=== PATIENT | male | born 1950 | race Asian ===

== ENCOUNTER 2018-01-30 22:43 | Inpatient (IN) | payer MEDICARE, MEDICAID ==
[2018-01-30 23:26] LABS: % BASOPHILS 0.4 % (0.0-2.0); % EOSINOPHILS 3.6 % (0.0-5.0); % LYMPHOCYTES 26.7 % (20.0-50.0); % MONOCYTES 8.3 % (2.0-10.0); EOSINOPHILE ABSOLUTE 0.3 Th/cmm (0.1-0.4); HEMATOCRIT 37.6 % (41.0-60); HEMOGLOBIN 12.9 gm/dL (12-16); LYMPHOCYTE ABSOLUTE 2.3 Th/cmm (1.5-3.0); MEAN CELL VOLUME 90.9 fl (80-99); MEAN CORPUSCULAR HEMOGLOBIN 31.1 pg (27.0-31.0); MEAN CORPUSCULAR HGB CONC 34.2 pg (28.0-36.0); MEAN PLATELET VOLUME 8.1 fl; MONOCYTE ABSOLUTE 0.7 Th/cmm (0.3-1.0); NEUTROPHILE ABSOLUTE 5.4 Th/cmm (1.8-8.0); PLATELET COUNT 201 Th/cmm (150-400); RED BLOOD COUNT 4.14 Mil/cmm (3.80-5.80); WHITE BLOOD COUNT 8.7 Th/cmm (4.8-10.8)
--- NOTE | 2018-01-30 23:32 | ED Physician Chart ---
ED Chief Complaint/HPI - Patient Information Date Seen:: 01/30/18 Time Seen:: 23:32 Chief Complaint:: Agitation and confusion History of Present Illness:: 67 yo male with history of psychosis and dementia, was brought from SNF to ER for evaluation of increased agitation and confusion. Allergies:: Allergies Allergy/AdvReac Type Severity Reaction Status Date / Time No Known Allergies Allergy Verified 01/30/18 23:04 Vitals:: Vital Signs - 8 hr 01/30/18 23:00 Temp 97.2 F HR 75 RR 20 BP 141/83 O2 Sat % 96 ED Review of Systems - Review of Systems General/Constitutional: No fever, No chills Skin: No bruising Head: No headache Eyes: No pain ENT: No nasal drainage Neck: No neck pain Cardio Vascular: No chest pain Pulmonary: No SOB GI: No nausea, No vomiting Musculoskeletal: No bone or joint pain Psychiatric: Prior psych history Neurological: No focal symptoms ED Past Medical History - Past Medical History Past Medical History: HTN, DM, Asthma/COPD, CVA/TIA (TIA), Dyslipidemia, Dementia, Other (high fall risk) Social History: Non Smoker, No Alcohol, No Drug Use Psychiatricy History: Other (Psychosis) Family Medical History - Family Member Mother History Unknown: Yes ED Physical Exam - Physical Examination General/Constitutional: Awake Head: Atraumatic Eyes: PERRL Skin: No ecchymosis ENMT: Nasal exam nl Neck: No nuchal rigidity Respiratory: Clear to Auscultation Cardio Vascular: RRR, No murmur, gallop, rubs, NL S1 S2 GI: No tenderness/rebounding/guarding Extremities: No edema Other Neuro/Psych comments:: Oriented to self only. Unsteady gait ED Labs/Radiology/EKG Results - Lab Results Results: Laboratory Last Values WBC 8.7 Th/cmm (4.8-10.8) 01/30/18 23:10 RBC 4.14 Mil/cmm (3.80-5.80) 01/30/18 23:10 Hgb 12.9 gm/dL (12-16) 01/30/18 23:10 Hct 37.6 % (41.0-60) L 01/30/18 23:10 MCV 90.9 fl (80-99) 01/30/18 23:10 MCH 31.1 pg (27.0-31.0) H 01/30/18 23:10 MCHC Differential 34.2 pg (28.0-36.0) 01/30/18 23:10 RDW 13.0 % (11.5-20.0) 01/30/18 23:10 Plt Count 201 Th/cmm (150-400) 01/30/18 23:10 MPV 8.1 fl 01/30/18 23:10 Neutrophils % 61.0 % (40.0-80.0) 01/30/18 23:10 Lymphocytes % 26.7 % (20.0-50.0) 01/30/18 23:10 Monocytes % 8.3 % (2.0-10.0) 01/30/18 23:10 Eosinophils % 3.6 % (0.0-5.0) 01/30/18 23:10 Basophils % 0.4 % (0.0-2.0) 01/30/18 23:10 Sodium 137 mEq/L (136-145) 01/30/18 23:10 Potassium 3.8 mEq/L (3.5-5.1) 01/30/18 23:10 Chloride 102 mEq/L (98-107) 01/30/18 23:10 Carbon Dioxide 28.2 mEq/L (21.0-31.0) 01/30/18 23:10 Anion Gap 10.6 (7.0-16.0) 01/30/18 23:10 BUN 26 mg/dL (7-25) H 01/30/18 23:10 Creatinine 1.2 mg/dL (0.7-1.3) 01/30/18 23:10 Est GFR ( Amer) > 60.0 ml/min (>90) 01/30/18 23:10 Est GFR (Non-Af Amer) > 60.0 ml/min 01/30/18 23:10 BUN/Creatinine Ratio 21.7 01/30/18 23:10 Glucose 215 mg/dL (70-105) H 01/30/18 23:10 POC Glucose 178 MG/DL (70 - 105) H 01/31/18 02:06 Calcium 8.8 mg/dL (8.6-10.3) 01/30/18 23:10 Magnesium 2.2 mg/dL (1.9-2.7) 01/30/18 23:10 Total Bilirubin 0.3 mg/dL (0.3-1.0) 01/30/18 23:10 AST 17 U/L (13-39) 01/30/18 23:10 ALT 16 U/L (7-52) 01/30/18 23:10 Alkaline Phosphatase 86 U/L (34-104) 01/30/18 23:10 Troponin I 0.01 ng/mL (0.01-0.05) 01/30/18 23:10 B-Natriuretic Peptide 14.6 pg/mL (5.0-100.0) 01/30/18 23:10 Total Protein 6.8 gm/dL (6.0-8.3) 01/30/18 23:10 Albumin 3.8 gm/dL (4.2-5.5) L 01/30/18 23:10 Globulin 3.0 gm/dL 01/30/18 23:10 Albumin/Globulin Ratio 1.3 (1.0-1.8) 01/30/18 23:10 - Radiology Results Results: CXR: no focal consolidation ED Assessment - Assessment General Assessment: Hypertension DM II Psychosis Dementia Assessment/Comments:: CBC, CMP, UA EKG, CXR Cleared for geropsy admission ED Septic Shock - . Is Septic Shock (SBP<90, OR Lactate>4 mmol\L) present?: No - <6hrs of presentation: Vital Signs: Vital Signs - 8 hr 01/30/18 23:00 Temp 97.2 F HR 75 RR 20 BP 141/83 O2 Sat % 96 ED Reassessment (Disposition) - Reassessment Reassessment Condition:: Unchanged - Patient Disposition Discharge/Transfer:: Geropsych unit w/in this hosp Admitting Medical Physician:: Beau Marie Admitting Psych Physician:: Papito Bishop ED Discharge Plan - Patient Disposition Admit/Discharge/Transfer: Other Care w/in this hosp Condition at Disposition: Stable
[2018-01-30 23:43] LABS: ALB/GLOB RATIO 1.3 (1.0-1.8); ALBUMIN 3.8 gm/dL (4.2-5.5); ALKALINE PHOSPHATASE 86 U/L (34-104); ANION GAP 10.6 (7.0-16.0); BILIRUBIN,TOTAL 0.3 mg/dL (0.3-1.0); BUN - UREA NITROGEN 26 mg/dL (7-25); CALCIUM SERUM 8.8 mg/dL (8.6-10.3); CARBON DIOXIDE 28.2 mEq/L (21.0-31.0); CHLORIDE 102 mEq/L (98-107); CREATININE - SERUM 1.2 mg/dL (0.7-1.3); GFR AFRICAN-AMERICAN > 60.0 ml/min (>90); GFR NON AFRICAN-AMERICAN > 60.0 ml/min; GLUCOSE 215 mg/dL (70-105); MAGNESIUM 2.2 mg/dL (1.9-2.7); POTASSIUM SERUM 3.8 mEq/L (3.5-5.1); SGOT 17 U/L (13-39); SGPT/ALT 16 U/L (7-52); SODIUM SERUM 137 mEq/L (136-145); TOTAL PROTEIN,SERUM 6.8 gm/dL (6.0-8.3)
[2018-01-31 02:23] VITALS: BP 141/78
[2018-01-31] MEDS ORDERED: Maalox 30 mL Cup PO PRN (02:26)
[2018-01-31] MEDS ORDERED: Magnesium Hydroxide (MOM) 30 mL UDC PO PRN (02:26)
[2018-01-31] MEDS ORDERED: Fleet Enema 135 mL RC PRN (06:44)
--- NOTE | 2018-01-31 10:37 | Diagnostic Imaging Report ---
Portable chest x-ray HISTORY: Shortness of breath The heart size is difficult to assess with portable technique in a poor inspiration. Allowing for the poor inspiration, no definite focal prominent processes are seen. IMPRESSION: 1. Allowing for a poor inspiration, no focal pulmonary processes 2. Suggestion of cardiomegaly
[2018-01-31] MEDS: INSULIN ASPART SLIDING SCALE 100 UNITS/ML UNIT SUBQ SCH ×2 (10:54→17:08)
[2018-01-31] MEDS: Calcium Carb/Vit D 500 mg/200 U Tab PO SCH ×2 (10:54→17:08)
[2018-01-31] MEDS: Pantoprazole 40 mg EC Tab PO SCH (10:55)
[2018-01-31] MEDS: Multivitamin Tab PO SCH (10:55)
[2018-01-31 17:52] LABS: A1C % 7.2 % (4.0-6.0)
[2018-01-31] MEDS: Atorvastatin Calcium 10 MG TAB PO SCH (20:36)
--- NOTE | 2018-01-31 22:16 | Psychosocial Evaluation ---
DATE OF SERVICE: 01/31/2018 IDENTIFYING DATA: The patient is a 67-year-old male, resident of [facility] in [place]. Information obtained by directly interviewing the patient as well as reviewing the admission papers and they are reliable. JUSTIFICATION OF HOSPITALIZATION: The patient is admitted here on a voluntary basis in view of his acute depression. CHIEF COMPLAINT: "I don't know, I am feeling down." HISTORY OF PRESENT ILLNESS: This is the first psychiatric hospitalization to the Geropsychiatric Unit for this patient who is reported to have been feeling depressed at least for the past couple of weeks. Prior to the hospitalization, the patient is reported to have been on sertraline 100 mg on a daily basis and is also getting the olanzapine 10 mg at bedtime. Even with these medications, the patient is reported to have been isolative, withdrawn with poor eye contact and not participating in any of the groups. Since the time of the admission, staff have been noticing that the patient has been doing the same thing and does not want to be mingling with anyone, does not want to say a word, and has been confined to his room mostly. Sleep and appetite prior to the hospitalization are reported to be fair. PAST PSYCHIATRIC HISTORY: None. MEDICAL HISTORY: Physical examination is requested to be done by Dr. Marie. SUBSTANCE ABUSE HISTORY: None. PHYSICAL OR SEXUAL ABUSE HISTORY: None. LEGAL PROBLEMS: None at this time. STRENGTH AND ASSETS: The patient seems to have good family support. MENTAL STATUS EXAMINATION: The patient is a 67-year-old, looking moderately obese, looking his stated age, superficially cooperative. Eye contact is fair. Mood is noted to be depressed. Affect is constricted. The patient's verbalizations are noted to be minimal. The patient has been very brief in his answers. The patient is isolated and withdrawn. The patient is denying any current hallucinations, but paranoia is a problem. The patient's short-term memory is noted to be poor. Long-term memory seems to be intact. The patient has been having difficult time to give any details with regards to what has been causing him to be depressed. The patient is not able to care for self at this time. DIAGNOSTIC IMPRESSION: AXIS I: Major depressive disorder, recurrent with psychotic symptoms. AXIS II: None. AXIS III: As per Dr. Marie. IMMEDIATE TREATMENT PLAN: The patient is going to be observed on the Inpatient Unit, provided with supportive psychotherapy. The antidepressant medications and antipsychotic mediations are going to be looked into and being adjusted prior to the patient being discharged. ESTIMATED LENGTH OF STAY: 6-7 days. DISCHARGE CRITERIA: When he no longer a threat to self or others and be able to cope up with the stress. [facility]# [id number]
[2018-02-01] MEDS: Pantoprazole 40 mg EC Tab PO SCH (06:56)
--- NOTE | 2018-02-01 07:53 | History and Physical ---
History of Present Illness - HPI Chief Complaint: Psychosis HPI: 67 y/o male who presents to [facility] for increased agitation and change in mental behavior noted by the staff at [facility]. Patient has a previous history of HTN, DM, Asthma/COPD, CVA/TIA (TIA), Dyslipidemia, Dementia, Other ( high fall risk). Patient was sent to the ER for further evaluation and treatment. Initial labwork revealed ... - Lab Results Results: Laboratory Last Values WBC 8.7 Th/cmm (4.8-10.8) 01/30/18 23:10 RBC 4.14 Mil/cmm (3.80-5.80) 01/30/18 23:10 Hgb 12.9 gm/dL (12-16) 01/30/18 23:10 Hct 37.6 % (41.0-60) L 01/30/18 23:10 MCV 90.9 fl (80-99) 01/30/18 23:10 MCH 31.1 pg (27.0-31.0) H 01/30/18 23:10 MCHC Differential 34.2 pg (28.0-36.0) 01/30/18 23:10 RDW 13.0 % (11.5-20.0) 01/30/18 23:10 Plt Count 201 Th/cmm (150-400) 01/30/18 23:10 MPV 8.1 fl 01/30/18 23:10 Neutrophils % 61.0 % (40.0-80.0) 01/30/18 23:10 Lymphocytes % 26.7 % (20.0-50.0) 01/30/18 23:10 Monocytes % 8.3 % (2.0-10.0) 01/30/18 23:10 Eosinophils % 3.6 % (0.0-5.0) 01/30/18 23:10 Basophils % 0.4 % (0.0-2.0) 01/30/18 23:10 Sodium 137 mEq/L (136-145) 01/30/18 23:10 Potassium 3.8 mEq/L (3.5-5.1) 01/30/18 23:10 Chloride 102 mEq/L (98-107) 01/30/18 23:10 Carbon Dioxide 28.2 mEq/L (21.0-31.0) 01/30/18 23:10 Anion Gap 10.6 (7.0-16.0) 01/30/18 23:10 BUN 26 mg/dL (7-25) H 01/30/18 23:10 Creatinine 1.2 mg/dL (0.7-1.3) 01/30/18 23:10 Est GFR ( Amer) > 60.0 ml/min (>90) 01/30/18 23:10 Est GFR (Non-Af Amer) > 60.0 ml/min 01/30/18 23:10 BUN/Creatinine Ratio 21.7 01/30/18 23:10 Glucose 215 mg/dL (70-105) H 01/30/18 23:10 POC Glucose 178 MG/DL (70 - 105) H 01/31/18 02:06 Calcium 8.8 mg/dL (8.6-10.3) 01/30/18 23:10 Magnesium 2.2 mg/dL (1.9-2.7) 01/30/18 23:10 Total Bilirubin 0.3 mg/dL (0.3-1.0) 01/30/18 23:10 AST 17 U/L (13-39) 01/30/18 23:10 ALT 16 U/L (7-52) 01/30/18 23:10 Alkaline Phosphatase 86 U/L (34-104) 01/30/18 23:10 Troponin I 0.01 ng/mL (0.01-0.05) 01/30/18 23:10 B-Natriuretic Peptide 14.6 pg/mL (5.0-100.0) 01/30/18 23:10 Total Protein 6.8 gm/dL (6.0-8.3) 01/30/18 23:10 Albumin 3.8 gm/dL (4.2-5.5) L 01/30/18 23:10 Globulin 3.0 gm/dL 01/30/18 23:10 Albumin/Globulin Ratio 1.3 (1.0-1.8) 01/30/18 23:10 - Radiology Results Results: CXR: no focal consolidation Patient was subsequently admitted for further evaluation and treatment. Vital Signs: Last Vital Signs Temp 98.1 F 02/01/18 07:14 Pulse 71 02/01/18 07:14 Resp 19 02/01/18 07:14 BP 147/81 02/01/18 07:14 Pulse Ox 96 02/01/18 07:14 Past Medical History Cardiovascular: Report: HTN, Hyperlipidemia Pulmonary: Report: Asthma, COPD PREDATORY HUNTER: Report: CVA, Dementia, TIA GI: Report: No Pertinent Hx Psych: Report: Psychosis Musculoskeletal: Report: No Pertinent Hx Rheumatologic: Report: No pertinent Hx Infectious Disease: Report: No Pertinent Hx Renal/: Report: No Pertinent Hx Endocrine: Report: Diabetes Dermatology: Report: No Pertinent Hx - Past Surgical History Past Surgical History: No pertinent Hx Family Medical History - Family Member Mother History Unknown: Yes Ethnicity: Unknown Living Status: Unknown Social History Smoke: No Alcohol: None Drugs: None Lives: Fdc - Medications Home Medications: Home Medication Medication Instructions Recorded Type Magnesium Hydroxide [Milk of 30 ml PO DAILY PRN 01/07/15 History Magnesia] Na Phos,M-B/Na Phos,Di-Ba [Fleet 133 ml RC DAILY PRN 01/07/15 History Enema 133 ml] Atorvastatin Calcium [Lipitor] 10 mg PO HS 01/30/18 History Calcium Carb/Vit D 500mg/200U 1 tab PO BID 01/30/18 History [Oscal w/Vitamin D] Docusate Sodium [Colace] 100 mg PO DAILY 01/30/18 History Donepezil Hcl [Aricept] 5 mg PO HS 01/30/18 History Insulin Aspart Sliding Scale See Protocol SUBQ BID 01/30/18 History [NovoLOG INSULIN SLIDING SCALE] OLANZapine [ZyPREXA] 10 mg PO HS 01/30/18 History Pantoprazole [Protonix] 40 mg PO DAILY 01/30/18 History Sertraline HCl [Zoloft] 100 mg PO DAILY 01/30/18 History Valsartan [Diovan] 80 mg PO BID 01/30/18 History amLODIPine Besylate [Norvasc] 5 mg PO DAILY 01/30/18 History Lorazepam [Ativan] 0.5 mg IM Q6HR PRN 01/31/18 History hydrOXYzine [Atarax*] 25 mg PO Q8HR PRN 01/31/18 History - Allergies Allergies/Adverse Reactions: Allergies Allergy/AdvReac Type Severity Reaction Status Date / Time No Known Allergies Allergy Verified 01/30/18 23:04 Review of Systems - Review of Systems Constitutional: Report: No Significant Eyes: Report: No Significant ENT: Report: No Significant Respiratory: Report: No Significant Cardiovascular: Report: No Significant Gastrointestinal: Report: No Significant Genitourinary: Report: No Significant Musculoskeletal: Report: No Significant Skin: Report: No Significant Neurological: Report: No Significant Other: prior psychiatric disorder Physical Exam - Physical Exam HEENT: Report: Ears Nose Throat within normal limits, Pharnyx within normal limits Neck: Report: Within normal limits Cardiovascular Systems: Report: +s1/s2 noted, Regular, Rate and Rhythm, No JVD Present Respiratory: Report: Clear to Auscultation of lung [place] Abdomen: Report: Non-tender to palpation Back: Report: Inspection of back is within normal limits. Extremities: Report: Non-tender to palpation. Skin: Report: Color of skin is within normal limits, Warm Neuro/Psych: Report: Other (awake, alert but confused) - Lab Results All Lab Results last 24 hours: Laboratory Results - last 24 hr 01/30/18 01/31/18 01/31/18 23:10 10:03 16:50 POC Glucose 193 H 101 Hemoglobin A1c % 7.2 H - Assessment Assessment: psychosis dementia Hypertension DM II Asthma/COPD CVA/TIA (TIA) Dyslipidemia Other (high fall risk) - Plan Plan: admit to [facility].
[2018-02-01] MEDS ORDERED: Magnesium Hydroxide (MOM) 30 mL UDC PO PRN (07:57)
--- NOTE | 2018-02-01 08:00 | General Progress Note ---
Subjective - Review of Systems Service Date: 02/01/18 Subjective: Awake,alert,but confused VS T98.1 P 71 BP 147/81 R 19 Objective - Results Result Diagrams: 01/30/18 23:10 01/30/18 23:10 Recent Labs: Laboratory Last Values WBC 8.7 Th/cmm (4.8-10.8) 01/30/18 23:10 RBC 4.14 Mil/cmm (3.80-5.80) 01/30/18 23:10 Hgb 12.9 gm/dL (12-16) 01/30/18 23:10 Hct 37.6 % (41.0-60) L 01/30/18 23:10 MCV 90.9 fl (80-99) 01/30/18 23:10 MCH 31.1 pg (27.0-31.0) H 01/30/18 23:10 MCHC Differential 34.2 pg (28.0-36.0) 01/30/18 23:10 RDW 13.0 % (11.5-20.0) 01/30/18 23:10 Plt Count 201 Th/cmm (150-400) 01/30/18 23:10 MPV 8.1 fl 01/30/18 23:10 Neutrophils % 61.0 % (40.0-80.0) 01/30/18 23:10 Lymphocytes % 26.7 % (20.0-50.0) 01/30/18 23:10 Monocytes % 8.3 % (2.0-10.0) 01/30/18 23:10 Eosinophils % 3.6 % (0.0-5.0) 01/30/18 23:10 Basophils % 0.4 % (0.0-2.0) 01/30/18 23:10 Sodium 137 mEq/L (136-145) 01/30/18 23:10 Potassium 3.8 mEq/L (3.5-5.1) 01/30/18 23:10 Chloride 102 mEq/L (98-107) 01/30/18 23:10 Carbon Dioxide 28.2 mEq/L (21.0-31.0) 01/30/18 23:10 Anion Gap 10.6 (7.0-16.0) 01/30/18 23:10 BUN 26 mg/dL (7-25) H 01/30/18 23:10 Creatinine 1.2 mg/dL (0.7-1.3) 01/30/18 23:10 Est GFR ( Amer) > 60.0 ml/min (>90) 01/30/18 23:10 Est GFR (Non-Af Amer) > 60.0 ml/min 01/30/18 23:10 BUN/Creatinine Ratio 21.7 01/30/18 23:10 Glucose 215 mg/dL (70-105) H 01/30/18 23:10 POC Glucose 101 MG/DL (70 - 105) 01/31/18 16:50 Hemoglobin A1c % 7.2 % (4.0-6.0) H 01/30/18 23:10 Calcium 8.8 mg/dL (8.6-10.3) 01/30/18 23:10 Magnesium 2.2 mg/dL (1.9-2.7) 01/30/18 23:10 Total Bilirubin 0.3 mg/dL (0.3-1.0) 01/30/18 23:10 AST 17 U/L (13-39) 01/30/18 23:10 ALT 16 U/L (7-52) 01/30/18 23:10 Alkaline Phosphatase 86 U/L (34-104) 01/30/18 23:10 Troponin I 0.01 ng/mL (0.01-0.05) 01/30/18 23:10 B-Natriuretic Peptide 14.6 pg/mL (5.0-100.0) 01/30/18 23:10 Total Protein 6.8 gm/dL (6.0-8.3) 01/30/18 23:10 Albumin 3.8 gm/dL (4.2-5.5) L 01/30/18 23:10 Globulin 3.0 gm/dL 01/30/18 23:10 Albumin/Globulin Ratio 1.3 (1.0-1.8) 01/30/18 23:10 - Physical Exam Vitals and I&O: Vital Signs Temp 98.1 F 02/01/18 07:14 Pulse 71 02/01/18 07:14 Resp 19 02/01/18 07:14 BP 147/81 02/01/18 07:14 Pulse Ox 96 02/01/18 07:14 Intake & Output 01/31/18 02/01/18 02/01/18 18:59 06:59 18:59 Intake Total 1200 200 200 Balance 1200 200 200 Intake: Oral 1200 200 200 Other: # Voids 4 3 3 # Bowel Movements 1 0 Active Medications: Current Medications Acetaminophen (Tylenol) 650 mg PO Q4HR PRN PRN Reason: Mild Pain / Temp above 100 Stop: 04/01/18 02:25 Al Hydrox/Mg Hydrox/Simethicone (Maalox) 30 ml PO Q4HR PRN PRN Reason: GI DISTRESS Stop: 04/01/18 02:25 Amlodipine Besylate (Norvasc) 5 mg PO DAILY [facility] Stop: 04/01/18 08:59 Last Admin: 01/31/18 10:53 Dose: 5 mg Atorvastatin Calcium (Lipitor) 10 mg PO HS [facility]; Protocol Stop: 04/01/18 20:59 Last Admin: 01/31/18 20:36 Dose: 10 mg Calcium/Vitamin D (Oscal W/Vitamin D) 1 tab PO BID [facility] Stop: 04/01/18 08:59 Last Admin: 01/31/18 17:08 Dose: 1 tab Docusate Sodium (Colace) 100 mg PO DAILY [facility] Stop: 04/01/18 08:59 Last Admin: 01/31/18 10:54 Dose: 100 mg Donepezil HCl (Aricept) 5 mg PO HS [facility] Stop: 04/01/18 20:59 Last Admin: 01/31/18 20:36 Dose: 5 mg Hydroxyzine HCl (Atarax) 25 mg PO Q8H PRN; Protocol PRN Reason: Itching Stop: 04/01/18 06:43 Insulin Aspart (Novolog Insulin Sliding Scale) 0 units SUBQ BID [facility]; Protocol Stop: 04/01/18 08:59 Last Admin: 01/31/18 17:08 Dose: Not Given Lorazepam (Ativan) 0.5 mg PO Q4H PRN; Protocol PRN Reason: Anxiety Stop: 04/01/18 02:25 Last Admin: 01/31/18 22:16 Dose: 0.5 mg Lorazepam (Ativan) 0.5 mg IM Q6H PRN; Protocol PRN Reason: Agitation Stop: 04/01/18 06:35 Magnesium Hydroxide (Milk Of Magnesia) 30 ml PO HS PRN PRN Reason: Constipation Multivitamins/Vitamin C (Theragran) 1 tab PO DAILY [facility] Stop: 04/01/18 08:59 Last Admin: 01/31/18 10:55 Dose: 1 tab Olanzapine (Zyprexa) 10 mg PO HS [facility]; Protocol Stop: 04/01/18 20:59 Last Admin: 01/31/18 20:37 Dose: 10 mg Pantoprazole Sodium (Protonix) 40 mg PO QDAC [facility] Stop: 04/01/18 08:59 Last Admin: 02/01/18 06:56 Dose: 40 mg Sertraline HCl (Zoloft) 100 mg PO DAILY [facility] Stop: 04/01/18 08:59 Last Admin: 01/31/18 10:53 Dose: Not Given Sodium Phosphate (Fleet Enema) 133 ml RC DAILY PRN PRN Reason: Constipation Stop: 04/01/18 06:43 Valsartan (Diovan) 80 mg PO BID [facility] Stop: 04/01/18 08:59 Last Admin: 01/31/18 17:08 Dose: 80 mg Zolpidem Tartrate (Ambien) 5 mg PO HS PRN PRN Reason: Insomnia Stop: 04/01/18 02:25 Last Admin: 01/31/18 22:16 Dose: 5 mg General: Alert, Other (confused) HEENT: Atraumatic, PERRLA, EOMI Neck: Supple Cardiovascular: Regular rate Abdomen: Bowel sounds, Soft Extremities: no Clubbing, no Cyanosis, no Edema - Procedures Procedures: Procedures Procedure Code Date DRAINAGE OF L PLEURAL CAV WITH DRAIN DEV, PERC APPROACH [id number] 08/06/15 INSERTION OF CHEST TUBE 45444 08/06/15 Assessment/Plan - Assessment Assessment: psychosis renal insufficiency dementia Hypertension elevated DM II Asthma/COPD CVA/TIA (TIA) Dyslipidemia Other (high fall risk) - Plan Plan: admit to [facility]. Nutritional Asmnt/Malnutr-PDOC - Dietary Evaluation Malnutrition Findings (Please click <Entered> for more info): Nutritional Asmnt/Malnutrition Start: 01/31/18 13: 05 Text: Status: Complete Freq: Protocol: Document 01/31/18 13:05 ZAYRA (Rec: 01/31/18 13:18 ZAYRA [email or web address]) Nutritional Asmnt/Malnutrition Patient General Information Nutritional Screening High Risk Diagnosis psychosis, agitation Pertinent Medical Hx/Surgical Hx psychosis, dementia, DM, HTN, asthma/COPD, CVA/TIA (TIA), dyslipidemia Subjective Information Pt seen sleeping quitely at time of visit. Per STUDENT LIFE COORDINATOR, pt ate breakfast this morning. Current Diet Order/ Nutrition Support [facility] soft ground Pertinent Medications oscal w/vit D, colace, novolog , theragran, protonix Pertinent Labs 01/30 BUN 26, Glucose 215, POC 178-193 Nutritional Hx/Data Height 1.7 m Height (Calculated Centimeters) 170.2 Current Weight (lbs) 78.925 kg Weight (Calculated Kilograms) 78.9 Weight (Calculated Grams) 42292.1 [place] Body Weight 148 Body Mass Index (BMI) 27.2 Weight Status Overweight GI Symptoms GI Symptoms None Last BM not indicated Difficult in: None Skin Integrity/Comment: intact Estimated Nutritional Goals Calories/Kcals/Kg 25-30 based on IBW 67kg Kcals Calculated 9408-0857 Protein g/k-1.2 Protein Calculated 67-80 Fluid: ml 1675-2010ml (1ml/kcal) Nutritional Problem 1. Problem Problem altered nutrition related labs Etiology hx of DM Signs/Symptoms: Glucose 215, POC 178-193 Malnutrition Alert Is there a minimum of two criteria No selected? Query Text:Check all the applicable criteria. A minimum of two criteria are recommended for diagnosis of either severe or non-severe malnutrition. Malnutrition Related to Morbid Obesity Malnutrition related to morbid obesity No Intervention/Recommendation Comments 1. Continue with current diet as ordered. Provide diabetic education if needed. 2. Monitor PO intake, wt, labs and skin integrity 3. F/U as moderate risk in 3-5 days, 02/03-02/05 Expected Outcomes/Goals Expected Outcomes/Goals 1. PO intake to meet at least 75% of nutritional needs. 2. Wt stability, skin to remain intact, labs to approach WNL.
[2018-02-01] MEDS: Multivitamin Tab PO SCH (09:18)
[2018-02-01] MEDS: Calcium Carb/Vit D 500 mg/200 U Tab PO SCH ×2 (09:18→17:31)
[2018-02-01] MEDS: INSULIN ASPART SLIDING SCALE 100 UNITS/ML UNIT SUBQ SCH ×2 (09:59→17:58)
[2018-02-01] MEDS: Atorvastatin Calcium 10 MG TAB PO SCH (21:11)
--- NOTE | 2018-02-02 02:34 | Progress Notes ---
DATE: 02/01/2018 SUBJECTIVE: Staff was spoken to. The patient is interviewed. Mood is noted to be depressed. Affect is constricted. The patient is isolative and withdrawn. Coping skills at this time are noted to be very poor. The patient has been having difficult time to cope with the stress. The patient is still isolated, withdrawn and verbalizations are noted to be very minimal. The patient is not able to contract for safety at this time and hence I have decided to slowly decrease the dose on the Zoloft to 50 mg and Zyprexa to 5 mg and change it to Prozac and looked into Abilify as in addition to these medication to see if it is going to be making the person to be a little bit more energetic and less depressed. The patient at this time is not able to contract for safety and hence he is not going to be discharged to a lower level of care yet. JOB# [id number]
[2018-02-02] MEDS: Pantoprazole 40 mg EC Tab PO SCH (06:50)
[2018-02-02 08:11] LABS: ANION GAP 9.8 (7.0-16.0); BUN - UREA NITROGEN 31 mg/dL (7-25); CALCIUM SERUM 9.2 mg/dL (8.6-10.3); CHLORIDE 102 mEq/L (98-107); CHOLESTEROL 177 mg/dL (<200); CREATININE - SERUM 1.3 mg/dL (0.7-1.3); GFR AFRICAN-AMERICAN > 60.0 ml/min (>90); GFR NON AFRICAN-AMERICAN 58.3 ml/min; GLUCOSE 141 mg/dL (70-105); HDL -HIGH DENSITY LIPOPROTEIN 41 mg/dL (23-92); POTASSIUM SERUM 3.8 mEq/L (3.5-5.1); SODIUM SERUM 137 mEq/L (136-145); TRIGLYCERIDES 147 mg/dL (<150)
--- NOTE | 2018-02-02 08:14 | General Progress Note ---
Subjective - Review of Systems Service Date: 02/02/18 Subjective: Awake,alert,but confused VS T98.1 P 76 BP 144/73 R 19 Objective - Results Result Diagrams: 01/30/18 23:10 02/02/18 07:30 Recent Labs: Laboratory Last Values WBC 8.7 Th/cmm (4.8-10.8) 01/30/18 23:10 RBC 4.14 Mil/cmm (3.80-5.80) 01/30/18 23:10 Hgb 12.9 gm/dL (12-16) 01/30/18 23:10 Hct 37.6 % (41.0-60) L 01/30/18 23:10 MCV 90.9 fl (80-99) 01/30/18 23:10 MCH 31.1 pg (27.0-31.0) H 01/30/18 23:10 MCHC Differential 34.2 pg (28.0-36.0) 01/30/18 23:10 RDW 13.0 % (11.5-20.0) 01/30/18 23:10 Plt Count 201 Th/cmm (150-400) 01/30/18 23:10 MPV 8.1 fl 01/30/18 23:10 Neutrophils % 61.0 % (40.0-80.0) 01/30/18 23:10 Lymphocytes % 26.7 % (20.0-50.0) 01/30/18 23:10 Monocytes % 8.3 % (2.0-10.0) 01/30/18 23:10 Eosinophils % 3.6 % (0.0-5.0) 01/30/18 23:10 Basophils % 0.4 % (0.0-2.0) 01/30/18 23:10 Sodium 137 mEq/L (136-145) 02/02/18 07:30 Potassium 3.8 mEq/L (3.5-5.1) 02/02/18 07:30 Chloride 102 mEq/L (98-107) 02/02/18 07:30 Carbon Dioxide 29.0 mEq/L (21.0-31.0) 02/02/18 07:30 Anion Gap 9.8 (7.0-16.0) 02/02/18 07:30 BUN 31 mg/dL (7-25) H 02/02/18 07:30 Creatinine 1.3 mg/dL (0.7-1.3) 02/02/18 07:30 Est GFR ( Amer) > 60.0 ml/min (>90) 02/02/18 07:30 Est GFR (Non-Af Amer) 58.3 ml/min 02/02/18 07:30 BUN/Creatinine Ratio 23.8 02/02/18 07:30 Glucose 141 mg/dL (70-105) H 02/02/18 07:30 POC Glucose 132 MG/DL (70 - 105) H 02/01/18 16:46 Hemoglobin A1c % 7.2 % (4.0-6.0) H 01/30/18 23:10 Calcium 9.2 mg/dL (8.6-10.3) 02/02/18 07:30 Magnesium 2.2 mg/dL (1.9-2.7) 01/30/18 23:10 Total Bilirubin 0.3 mg/dL (0.3-1.0) 01/30/18 23:10 AST 17 U/L (13-39) 01/30/18 23:10 ALT 16 U/L (7-52) 01/30/18 23:10 Alkaline Phosphatase 86 U/L (34-104) 01/30/18 23:10 Troponin I 0.01 ng/mL (0.01-0.05) 01/30/18 23:10 B-Natriuretic Peptide 14.6 pg/mL (5.0-100.0) 01/30/18 23:10 Total Protein 6.8 gm/dL (6.0-8.3) 01/30/18 23:10 Albumin 3.8 gm/dL (4.2-5.5) L 01/30/18 23:10 Globulin 3.0 gm/dL 01/30/18 23:10 Albumin/Globulin Ratio 1.3 (1.0-1.8) 01/30/18 23:10 Triglycerides 147 mg/dL (<150) 02/02/18 07:30 Cholesterol 177 mg/dL (<200) 02/02/18 07:30 LDL Cholesterol Direct 106 mg/dL (75-193) 02/02/18 07:30 HDL Cholesterol 41 mg/dL (23-92) 02/02/18 07:30 - Physical Exam Vitals and I&O: Vital Signs Temp 98.1 F 02/02/18 05:00 Pulse 76 02/02/18 05:00 Resp 19 02/02/18 05:00 BP 144/73 02/02/18 05:00 Pulse Ox 93 02/02/18 05:00 Intake & Output 02/01/18 02/02/18 02/02/18 18:59 06:59 18:59 Intake Total 200 480 Balance 200 480 Intake: Oral 200 480 Other: # Voids 3 2 # Bowel Movements 0 Active Medications: Current Medications Acetaminophen (Tylenol) 650 mg PO Q4HR PRN PRN Reason: Mild Pain / Temp above 100 Stop: 04/01/18 02:25 Al Hydrox/Mg Hydrox/Simethicone (Maalox) 30 ml PO Q4HR PRN PRN Reason: GI DISTRESS Stop: 04/01/18 02:25 Amlodipine Besylate (Norvasc) 5 mg PO DAILY [facility] Stop: 04/01/18 08:59 Last Admin: 02/01/18 09:18 Dose: 5 mg Atorvastatin Calcium (Lipitor) 10 mg PO HS [facility]; Protocol Stop: 04/01/18 20:59 Last Admin: 02/01/18 21:11 Dose: 10 mg Calcium/Vitamin D (Oscal W/Vitamin D) 1 tab PO BID [facility] Stop: 04/01/18 08:59 Last Admin: 02/01/18 17:31 Dose: 1 tab Docusate Sodium (Colace) 100 mg PO DAILY [facility] Stop: 04/01/18 08:59 Last Admin: 02/01/18 09:20 Dose: 100 mg Donepezil HCl (Aricept) 5 mg PO [facility] Stop: 04/01/18 20:59 Last Admin: 02/01/18 21:11 Dose: 5 mg Hydroxyzine HCl (Atarax) 25 mg PO Q8H PRN; Protocol PRN Reason: Itching Stop: 04/01/18 06:43 Insulin Aspart (Novolog Insulin Sliding Scale) 0 units SUBQ BID [facility]; Protocol Stop: 04/01/18 08:59 Last Admin: 02/01/18 17:58 Dose: 2 units Lorazepam (Ativan) 0.5 mg PO Q4H PRN; Protocol PRN Reason: Anxiety Stop: 04/01/18 02:25 Last Admin: 01/31/18 22:16 Dose: 0.5 mg Lorazepam (Ativan) 0.5 mg IM Q6H PRN; Protocol PRN Reason: Agitation Stop: 04/01/18 06:35 Magnesium Hydroxide (Milk Of Magnesia) 30 ml PO HS PRN PRN Reason: Constipation Magnesium Hydroxide (Milk Of Magnesia) 30 ml PO DAILY PRN PRN Reason: Constipation Stop: 04/02/18 07:56 Multivitamins/Vitamin C (Theragran) 1 tab PO DAILY [facility] Stop: 04/01/18 08:59 Last Admin: 02/01/18 09:18 Dose: 1 tab Mupirocin (Bactroban Oint) 1 appl NS BID [facility] Stop: 02/06/18 09:01 Last Admin: 02/01/18 17:58 Dose: 1 appl Olanzapine (Zyprexa) 5 mg PO HS [facility]; Protocol Stop: 04/02/18 20:59 Last Admin: 02/01/18 21:10 Dose: 5 mg Pantoprazole Sodium (Protonix) 40 mg PO QDAC [facility] Stop: 04/01/18 08:59 Last Admin: 02/02/18 06:50 Dose: 40 mg Sertraline HCl (Zoloft) 50 mg PO DAILY [facility] Stop: 04/03/18 08:59 Sodium Phosphate (Fleet Enema) 133 ml RC DAILY PRN PRN Reason: Constipation Stop: 04/01/18 06:43 Valsartan (Diovan) 80 mg PO BID [facility] Stop: 04/01/18 08:59 Last Admin: 02/01/18 17:31 Dose: 80 mg Zolpidem Tartrate (Ambien) 5 mg PO HS PRN PRN Reason: Insomnia Stop: 04/01/18 02:25 Last Admin: 02/01/18 21:11 Dose: 5 mg General: Alert, Other (confused) HEENT: Atraumatic, PERRLA, EOMI Neck: Supple Cardiovascular: Regular rate Abdomen: Bowel sounds, Soft Extremities: no Clubbing, no Cyanosis, no Edema - Procedures Procedures: Procedures Procedure Code Date DRAINAGE OF L PLEURAL CAV WITH DRAIN DEV, PERC APPROACH [id number] 08/06/15 INSERTION OF CHEST TUBE 75123 08/06/15 Assessment/Plan - Assessment Assessment: psychosis renal insufficiency dementia Hypertension elevated DM II Asthma/COPD CVA/TIA (TIA) Dyslipidemia Other (high fall risk) - Plan Plan: [facility]. Nutritional Asmnt/Malnutr-PDOC - Dietary Evaluation Malnutrition Findings (Please click <Entered> for more info): Nutritional Asmnt/Malnutrition Start: 01/31/18 13: 05 Text: Status: Complete Freq: Protocol: Document 01/31/18 13:05 ZAYRA (Rec: 01/31/18 13:18 WILL [email or web address]) Nutritional Asmnt/Malnutrition Patient General Information Nutritional Screening High Risk Diagnosis psychosis, agitation Pertinent Medical Hx/Surgical Hx psychosis, dementia, DM, HTN, asthma/COPD, CVA/TIA (TIA), dyslipidemia Subjective Information Pt seen sleeping quitely at time of visit. Per SENIOR ORACLE ADF DEVELOPER, pt ate breakfast this morning. Current Diet Order/ Nutrition Support [facility] soft ground Pertinent Medications oscal w/vit D, colace, novolog , theragran, protonix Pertinent Labs 01/30 BUN 26, Glucose 215, POC 178-193 Nutritional Hx/Data Height 1.7 m Height (Calculated Centimeters) 170.2 Current Weight (lbs) 78.925 kg Weight (Calculated Kilograms) 78.9 Weight (Calculated Grams) 78832.1 [place] Body Weight 148 Body Mass Index (BMI) 27.2 Weight Status Overweight GI Symptoms GI Symptoms None Last BM not indicated Difficult in: None Skin Integrity/Comment: intact Estimated Nutritional Goals Calories/Kcals/Kg 25-30 based on IBW 67kg Kcals Calculated 3294-4285 Protein g/k-1.2 Protein Calculated 67-80 Fluid: ml 1675-2010ml (1ml/kcal) Nutritional Problem 1. Problem Problem altered nutrition related labs Etiology hx of DM Signs/Symptoms: Glucose 215, POC 178-193 Malnutrition Alert Is there a minimum of two criteria No selected? Query Text:Check all the applicable criteria. A minimum of two criteria are recommended for diagnosis of either severe or non-severe malnutrition. Malnutrition Related to Morbid Obesity Malnutrition related to morbid obesity No Intervention/Recommendation Comments 1. Continue with current diet as ordered. Provide diabetic education if needed. 2. Monitor PO intake, wt, labs and skin integrity 3. F/U as moderate risk in 3-5 days, 02/03-02/05 Expected Outcomes/Goals Expected Outcomes/Goals 1. PO intake to meet at least 75% of nutritional needs. 2. Wt stability, skin to remain intact, labs to approach WNL.
[2018-02-02] MEDS: Calcium Carb/Vit D 500 mg/200 U Tab PO SCH ×2 (09:00→16:56)
[2018-02-02] MEDS: Multivitamin Tab PO SCH (09:01)
[2018-02-02] MEDS: INSULIN ASPART SLIDING SCALE 100 UNITS/ML UNIT SUBQ SCH ×2 (09:13→16:20)
[2018-02-02] MEDS: Atorvastatin Calcium 10 MG TAB PO SCH (21:16)
--- NOTE | 2018-02-03 02:17 | Progress Notes ---
DATE: 02/02/2018 SUBJECTIVE: Staff was spoken to. The patient is interviewed. Mood is noted to be irritable. Affect is constricted. Insight and judgment noted to be still impaired. The patient is isolative and withdrawn. The patient is not willing to participate in any of the groups. ASSESSMENT: The patient has psychomotor retardation and hence it is decided to decrease the dose on the Zyprexa only to 2.5 mg and possibly consider adding the Abilify in place of the Zyprexa and closely monitor the patient. JOB# [id number]
--- NOTE | 2018-02-03 04:59 | General Progress Note ---
Subjective - Review of Systems Service Date: 02/03/18 Subjective: Awake,alert,but confused VS T97.9 P 79 BP 120/70 R 19 Objective - Results Result Diagrams: 01/30/18 23:10 02/02/18 07:30 Recent Labs: Laboratory Last Values WBC 8.7 Th/cmm (4.8-10.8) 01/30/18 23:10 RBC 4.14 Mil/cmm (3.80-5.80) 01/30/18 23:10 Hgb 12.9 gm/dL (12-16) 01/30/18 23:10 Hct 37.6 % (41.0-60) L 01/30/18 23:10 MCV 90.9 fl (80-99) 01/30/18 23:10 MCH 31.1 pg (27.0-31.0) H 01/30/18 23:10 MCHC Differential 34.2 pg (28.0-36.0) 01/30/18 23:10 RDW 13.0 % (11.5-20.0) 01/30/18 23:10 Plt Count 201 Th/cmm (150-400) 01/30/18 23:10 MPV 8.1 fl 01/30/18 23:10 Neutrophils % 61.0 % (40.0-80.0) 01/30/18 23:10 Lymphocytes % 26.7 % (20.0-50.0) 01/30/18 23:10 Monocytes % 8.3 % (2.0-10.0) 01/30/18 23:10 Eosinophils % 3.6 % (0.0-5.0) 01/30/18 23:10 Basophils % 0.4 % (0.0-2.0) 01/30/18 23:10 Sodium 137 mEq/L (136-145) 02/02/18 07:30 Potassium 3.8 mEq/L (3.5-5.1) 02/02/18 07:30 Chloride 102 mEq/L (98-107) 02/02/18 07:30 Carbon Dioxide 29.0 mEq/L (21.0-31.0) 02/02/18 07:30 Anion Gap 9.8 (7.0-16.0) 02/02/18 07:30 BUN 31 mg/dL (7-25) H 02/02/18 07:30 Creatinine 1.3 mg/dL (0.7-1.3) 02/02/18 07:30 Est GFR ( Amer) > 60.0 ml/min (>90) 02/02/18 07:30 Est GFR (Non-Af Amer) 58.3 ml/min 02/02/18 07:30 BUN/Creatinine Ratio 23.8 02/02/18 07:30 Glucose 141 mg/dL (70-105) H 02/02/18 07:30 POC Glucose 197 MG/DL (70 - 105) H 02/02/18 09:08 Hemoglobin A1c % 7.2 % (4.0-6.0) H 01/30/18 23:10 Calcium 9.2 mg/dL (8.6-10.3) 02/02/18 07:30 Magnesium 2.2 mg/dL (1.9-2.7) 01/30/18 23:10 Total Bilirubin 0.3 mg/dL (0.3-1.0) 01/30/18 23:10 AST 17 U/L (13-39) 01/30/18 23:10 ALT 16 U/L (7-52) 01/30/18 23:10 Alkaline Phosphatase 86 U/L (34-104) 01/30/18 23:10 Troponin I 0.01 ng/mL (0.01-0.05) 01/30/18 23:10 B-Natriuretic Peptide 14.6 pg/mL (5.0-100.0) 01/30/18 23:10 Total Protein 6.8 gm/dL (6.0-8.3) 01/30/18 23:10 Albumin 3.8 gm/dL (4.2-5.5) L 01/30/18 23:10 Globulin 3.0 gm/dL 01/30/18 23:10 Albumin/Globulin Ratio 1.3 (1.0-1.8) 01/30/18 23:10 Triglycerides 147 mg/dL (<150) 02/02/18 07:30 Cholesterol 177 mg/dL (<200) 02/02/18 07:30 LDL Cholesterol Direct 106 mg/dL (75-193) 02/02/18 07:30 HDL Cholesterol 41 mg/dL (23-92) 02/02/18 07:30 TSH 2.90 uIU/ml (0.34-5.60) 02/02/18 07:30 - Physical Exam Vitals and I&O: Vital Signs Temp 97.9 F 02/03/18 04:46 Pulse 79 02/03/18 04:46 Resp 19 02/03/18 04:46 BP 120/70 02/03/18 04:46 Pulse Ox 91 02/03/18 04:46 Intake & Output 02/02/18 02/02/18 02/03/18 06:59 18:59 06:59 Intake Total 480 480 Balance 480 480 Intake: Oral 480 480 Other: # Voids 2 2 Active Medications: Current Medications Acetaminophen (Tylenol) 650 mg PO Q4HR PRN PRN Reason: Mild Pain / Temp above 100 Stop: 04/01/18 02:25 Al Hydrox/Mg Hydrox/Simethicone (Maalox) 30 ml PO Q4HR PRN PRN Reason: GI DISTRESS Stop: 04/01/18 02:25 Amlodipine Besylate (Norvasc) 5 mg PO DAILY [facility] Stop: 04/01/18 08:59 Last Admin: 02/02/18 09:02 Dose: Not Given Atorvastatin Calcium (Lipitor) 10 mg PO HS [facility]; Protocol Stop: 04/01/18 20:59 Last Admin: 02/02/18 21:16 Dose: 10 mg Calcium/Vitamin D (Oscal W/Vitamin D) 1 tab PO BID [facility] Stop: 04/01/18 08:59 Last Admin: 02/02/18 16:56 Dose: 1 tab Docusate Sodium (Colace) 100 mg PO DAILY [facility] Stop: 04/01/18 08:59 Last Admin: 02/02/18 09:02 Dose: 100 mg Donepezil HCl (Aricept) 5 mg PO HS [facility] Stop: 04/01/18 20:59 Last Admin: 02/02/18 21:15 Dose: 5 mg Hydroxyzine HCl (Atarax) 25 mg PO Q8H PRN; Protocol PRN Reason: Itching Stop: 04/01/18 06:43 Insulin Aspart (Novolog Insulin Sliding Scale) 0 units SUBQ BID [facility]; Protocol Stop: 04/01/18 08:59 Last Admin: 02/02/18 16:20 Dose: 2 units Lorazepam (Ativan) 0.5 mg PO Q4H PRN; Protocol PRN Reason: Anxiety Stop: 04/01/18 02:25 Last Admin: 01/31/18 22:16 Dose: 0.5 mg Lorazepam (Ativan) 0.5 mg IM Q6H PRN; Protocol PRN Reason: Agitation Stop: 04/01/18 06:35 Magnesium Hydroxide (Milk Of Magnesia) 30 ml PO HS PRN PRN Reason: Constipation Magnesium Hydroxide (Milk Of Magnesia) 30 ml PO DAILY PRN PRN Reason: Constipation Stop: 04/02/18 07:56 Multivitamins/Vitamin C (Theragran) 1 tab PO DAILY [facility] Stop: 04/01/18 08:59 Last Admin: 02/02/18 09:01 Dose: 1 tab Mupirocin (Bactroban Oint) 1 appl NS BID [facility] Stop: 02/06/18 09:01 Last Admin: 02/02/18 16:57 Dose: 1 appl Olanzapine (Zyprexa) 2.5 mg PO HS [facility] Stop: 04/03/18 20:59 Last Admin: 02/02/18 21:15 Dose: 2.5 mg Pantoprazole Sodium (Protonix) 40 mg PO QDAC [facility] Stop: 04/01/18 08:59 Last Admin: 02/02/18 06:50 Dose: 40 mg Sertraline HCl (Zoloft) 50 mg PO DAILY [facility] Stop: 04/03/18 08:59 Last Admin: 02/02/18 09:01 Dose: 50 mg Sodium Phosphate (Fleet Enema) 133 ml RC DAILY PRN PRN Reason: Constipation Stop: 04/01/18 06:43 Valsartan (Diovan) 80 mg PO BID [facility] Stop: 04/01/18 08:59 Last Admin: 02/02/18 16:56 Dose: 80 mg Zolpidem Tartrate (Ambien) 5 mg PO HS PRN PRN Reason: Insomnia Stop: 04/01/18 02:25 Last Admin: 02/01/18 21:11 Dose: 5 mg General: Alert, Other (confused) HEENT: Atraumatic, PERRLA, EOMI Neck: Supple Cardiovascular: Regular rate Abdomen: Bowel sounds, Soft Extremities: no Clubbing, no Cyanosis, no Edema - Procedures Procedures: Procedures Procedure Code Date DRAINAGE OF L PLEURAL CAV WITH DRAIN DEV, PERC APPROACH [id number] 08/06/15 INSERTION OF CHEST TUBE 91547 08/06/15 Assessment/Plan - Assessment Assessment: psychosis renal insufficiency dementia Hypertension elevated DM II Asthma/COPD CVA/TIA (TIA) Dyslipidemia Other (high fall risk) - Plan Plan: admit to [facility]. continue current medications Nutritional Asmnt/Malnutr-PDOC - Dietary Evaluation Malnutrition Findings (Please click <Entered> for more info): Nutritional Asmnt/Malnutrition Start: 01/31/18 13: 05 Text: Status: Complete Freq: Protocol: Document 01/31/18 13:05 LCHENG (Rec: 01/31/18 13:18 LCHENG [email or web address]) Nutritional Asmnt/Malnutrition Patient General Information Nutritional Screening High Risk Diagnosis psychosis, agitation Pertinent Medical Hx/Surgical Hx psychosis, dementia, DM, HTN, asthma/COPD, CVA/TIA (TIA), dyslipidemia Subjective Information Pt seen sleeping quitely at time of visit. Per SENIOR TECHNICAL TRAINER, pt ate breakfast this morning. Current Diet Order/ Nutrition Support [facility] soft ground Pertinent Medications oscal w/vit D, colace, novolog , theragran, protonix Pertinent Labs 01/30 BUN 26, Glucose 215, POC 178-193 Nutritional Hx/Data Height 1.7 m Height (Calculated Centimeters) 170.2 Current Weight (lbs) 78.925 kg Weight (Calculated Kilograms) 78.9 Weight (Calculated Grams) 91833.1 [place] Body Weight 148 Body Mass Index (BMI) 27.2 Weight Status Overweight GI Symptoms GI Symptoms None Last BM not indicated Difficult in: None Skin Integrity/Comment: intact Estimated Nutritional Goals Calories/Kcals/Kg 25-30 based on IBW 67kg Kcals Calculated 3551-8255 Protein g/k-1.2 Protein Calculated 67-80 Fluid: ml 1675-2010ml (1ml/kcal) Nutritional Problem 1. Problem Problem altered nutrition related labs Etiology hx of DM Signs/Symptoms: Glucose 215, POC 178-193 Malnutrition Alert Is there a minimum of two criteria No selected? Query Text:Check all the applicable criteria. A minimum of two criteria are recommended for diagnosis of either severe or non-severe malnutrition. Malnutrition Related to Morbid Obesity Malnutrition related to morbid obesity No Intervention/Recommendation Comments 1. Continue with current diet as ordered. Provide diabetic education if needed. 2. Monitor PO intake, wt, labs and skin integrity 3. F/U as moderate risk in 3-5 days, 02/03-02/05 Expected Outcomes/Goals Expected Outcomes/Goals 1. PO intake to meet at least 75% of nutritional needs. 2. Wt stability, skin to remain intact, labs to approach WNL.
[2018-02-03] MEDS: Pantoprazole 40 mg EC Tab PO SCH (06:44)
[2018-02-03] MEDS: INSULIN ASPART SLIDING SCALE 100 UNITS/ML UNIT SUBQ SCH ×2 (09:10→18:55)
--- NOTE | 2018-02-03 09:41 | Consultation ---
DATE OF CONSULTATION: 02/02/2018 REFERRING PHYSICIAN: Aleja Starr M.D. TYPE OF CONSULTATION: Psychology. HISTORY OF PRESENT ILLNESS: The patient is a 67-year-old male. The patient is a resident of [facility] in [place]. The following is by record review and by the patient's self report. The patient is being admitted due to acute depression. Upon interview, the patient reports that he is depressed and feeling down. The staff at the patient's facility report that he had been withdrawn and isolating and not participating in any of the group activity, appetite is poor, sleep is poor. The patient denies any suicidal ideation, plan or intention. However, the patient did endorse the items of hopelessness and helplessness. PAST MEDICAL HISTORY: Please see history and physical by Dr. Marie. PAST PSYCHIATRIC HISTORY: No records are available. SUBSTANCE ABUSE HISTORY: The patient denies any history. PSYCHOSOCIAL HISTORY: The patient is a resident of [facility] in [place]. The patient did not answer questions about occupational or educational history or methodist affiliation. The patient denied any history of physical abuse or sexual abuse. The patient denied any current legal problems. The patient stated he has good family support and involvement. MENTAL STATUS EXAMINATION: The patient appears to be his stated age. The patient's attitude is superficially cooperative. Eye contact is fair. Speech is delayed. Mood is depressed. Affect is blunted. The patient is mostly answering yes or no to clinical questions. The patient denied any suicidal ideation, plan or intention. The patient denied any auditory or visual hallucinations. There is some evidence that the patient is having paranoid ideation. The patient is withdrawn and isolative on the unit. Concentration is poor. Impulse control is intact. The patient did not participate in the memory assessment. Record indicates short-term memory to be poor and long-term memory is generally intact. This needs further evaluation. Sensorium is alert and oriented to self and place. The patient was unable to identify any specific reason for his depression. The patient did not participate in the interpretation of proverbs. Insight is poor. Judgment is poor. DIAGNOSTIC IMPRESSION: AXIS I: Major depressive disorder, recurrent with psychotic symptoms. AXIS II: Deferred. AXIS III: Please see history and physical by Dr. Marie. PLAN: The patient has been seen by Dr. Starr for psychiatric evaluation and for the management of the patient's psychotropic medications. We will provide supportive psychotherapy to include insight oriented therapy as well as coping strategies for phase of life issues to reduce the patient's depression. The patient is being started on antidepressive medication as well as antipsychotic medication according to the medical record. We will provide reality integration as well. We will continue to provide supportive therapy throughout the patient' s hospital stay and assist him in adjusting to his long-term care environment. We will provide cognitive behavioral therapy to assist the patient in reducing his depression. Thank you, Dr. Starr for this consult and the opportunity to participate with you in this patient's care. JOB# [id number] ESTEBAN
[2018-02-03] MEDS: Calcium Carb/Vit D 500 mg/200 U Tab PO SCH ×2 (09:45→16:53)
[2018-02-03] MEDS: Multivitamin Tab PO SCH (09:45)
--- NOTE | 2018-02-03 13:59 | Progress Notes ---
DATE: 02/03/2018 PSYCHIATRIC PROGRESS NOTE SUBJECTIVE: Staff was spoken to. The patient is interviewed. Mood is noted to be irritable. The patient is depressed. Affect is constricted. The patient has been isolative and withdrawn, has been not willing to participate in any of the groups. Most of the time, he is in his bed. ASSESSMENT AND PLAN: The patient's olanzapine has been decreased and then plan to stop the olanzapine and possibly add 2 mg of the Abilify to see if it is going to be helping him with his depression. Once the Abilify as going to be started and the patient's antidepressant medication is going to be looked into whether we need to change the medication. The patient is currently on the olanzapine and sertraline, which he is getting 50 mg. We will closely monitor the patient with this combination and see how he responds and then will go from there. JOB# [id number]
[2018-02-03] MEDS: Atorvastatin Calcium 10 MG TAB PO SCH (20:17)
--- NOTE | 2018-02-04 04:50 | General Progress Note ---
Subjective - Review of Systems Service Date: 02/04/18 Subjective: Awake,alert,but confused VS T98.4 P 86 BP 113/62 R 22 Objective - Results Result Diagrams: 01/30/18 23:10 02/02/18 07:30 Recent Labs: Laboratory Last Values WBC 8.7 Th/cmm (4.8-10.8) 01/30/18 23:10 RBC 4.14 Mil/cmm (3.80-5.80) 01/30/18 23:10 Hgb 12.9 gm/dL (12-16) 01/30/18 23:10 Hct 37.6 % (41.0-60) L 01/30/18 23:10 MCV 90.9 fl (80-99) 01/30/18 23:10 MCH 31.1 pg (27.0-31.0) H 01/30/18 23:10 MCHC Differential 34.2 pg (28.0-36.0) 01/30/18 23:10 RDW 13.0 % (11.5-20.0) 01/30/18 23:10 Plt Count 201 Th/cmm (150-400) 01/30/18 23:10 MPV 8.1 fl 01/30/18 23:10 Neutrophils % 61.0 % (40.0-80.0) 01/30/18 23:10 Lymphocytes % 26.7 % (20.0-50.0) 01/30/18 23:10 Monocytes % 8.3 % (2.0-10.0) 01/30/18 23:10 Eosinophils % 3.6 % (0.0-5.0) 01/30/18 23:10 Basophils % 0.4 % (0.0-2.0) 01/30/18 23:10 Sodium 137 mEq/L (136-145) 02/02/18 07:30 Potassium 3.8 mEq/L (3.5-5.1) 02/02/18 07:30 Chloride 102 mEq/L (98-107) 02/02/18 07:30 Carbon Dioxide 29.0 mEq/L (21.0-31.0) 02/02/18 07:30 Anion Gap 9.8 (7.0-16.0) 02/02/18 07:30 BUN 31 mg/dL (7-25) H 02/02/18 07:30 Creatinine 1.3 mg/dL (0.7-1.3) 02/02/18 07:30 Est GFR ( Amer) > 60.0 ml/min (>90) 02/02/18 07:30 Est GFR (Non-Af Amer) 58.3 ml/min 02/02/18 07:30 BUN/Creatinine Ratio 23.8 02/02/18 07:30 Glucose 141 mg/dL (70-105) H 02/02/18 07:30 POC Glucose 73 MG/DL (70 - 105) 02/03/18 16:25 Hemoglobin A1c % 7.2 % (4.0-6.0) H 01/30/18 23:10 Calcium 9.2 mg/dL (8.6-10.3) 02/02/18 07:30 Magnesium 2.2 mg/dL (1.9-2.7) 01/30/18 23:10 Total Bilirubin 0.3 mg/dL (0.3-1.0) 01/30/18 23:10 AST 17 U/L (13-39) 01/30/18 23:10 ALT 16 U/L (7-52) 01/30/18 23:10 Alkaline Phosphatase 86 U/L (34-104) 01/30/18 23:10 Troponin I 0.01 ng/mL (0.01-0.05) 01/30/18 23:10 B-Natriuretic Peptide 14.6 pg/mL (5.0-100.0) 01/30/18 23:10 Total Protein 6.8 gm/dL (6.0-8.3) 01/30/18 23:10 Albumin 3.8 gm/dL (4.2-5.5) L 01/30/18 23:10 Globulin 3.0 gm/dL 01/30/18 23:10 Albumin/Globulin Ratio 1.3 (1.0-1.8) 01/30/18 23:10 Triglycerides 147 mg/dL (<150) 02/02/18 07:30 Cholesterol 177 mg/dL (<200) 02/02/18 07:30 LDL Cholesterol Direct 106 mg/dL (75-193) 02/02/18 07:30 HDL Cholesterol 41 mg/dL (23-92) 02/02/18 07:30 TSH 2.90 uIU/ml (0.34-5.60) 02/02/18 07:30 - Physical Exam Vitals and I&O: Vital Signs Temp 98.4 F 02/03/18 17:07 Pulse 86 02/03/18 18:56 Resp 22 02/03/18 17:07 BP 113/62 02/03/18 18:56 Pulse Ox 99 02/03/18 17:07 Intake & Output 02/03/18 02/03/18 02/04/18 06:59 18:59 06:59 Intake Total 480 1500 Balance 480 1500 Intake: Oral 480 1500 Other: # Voids 2 4 # Bowel Movements 1 Active Medications: Current Medications Acetaminophen (Tylenol) 650 mg PO Q4HR PRN PRN Reason: Mild Pain / Temp above 100 Stop: 04/01/18 02:25 Al Hydrox/Mg Hydrox/Simethicone (Maalox) 30 ml PO Q4HR PRN PRN Reason: GI DISTRESS Stop: 04/01/18 02:25 Amlodipine Besylate (Norvasc) 5 mg PO DAILY [facility] Stop: 04/01/18 08:59 Last Admin: 02/03/18 09:44 Dose: 5 mg Aripiprazole (Abilify) 2 mg PO DAILY [facility]; Protocol Stop: 04/05/18 08:59 Atorvastatin Calcium (Lipitor) 10 mg PO HS [facility]; Protocol Stop: 04/01/18 20:59 Last Admin: 02/03/18 20:17 Dose: 10 mg Calcium/Vitamin D (Oscal W/Vitamin D) 1 tab PO BID [facility] Stop: 04/01/18 08:59 Last Admin: 02/03/18 16:53 Dose: 1 tab Docusate Sodium (Colace) 100 mg PO DAILY [facility] Stop: 04/01/18 08:59 Last Admin: 02/03/18 09:44 Dose: 100 mg Donepezil HCl (Aricept) 5 mg PO HS [facility] Stop: 04/01/18 20:59 Last Admin: 02/03/18 20:18 Dose: 5 mg Hydroxyzine HCl (Atarax) 25 mg PO Q8H PRN; Protocol PRN Reason: Itching Stop: 04/01/18 06:43 Insulin Aspart (Novolog Insulin Sliding Scale) 0 units SUBQ BID [facility]; Protocol Stop: 04/01/18 08:59 Last Admin: 02/03/18 18:55 Dose: Not Given Lorazepam (Ativan) 0.5 mg PO Q4H PRN; Protocol PRN Reason: Anxiety Stop: 04/01/18 02:25 Last Admin: 02/03/18 15:18 Dose: 0.5 mg Lorazepam (Ativan) 0.5 mg IM Q6H PRN; Protocol PRN Reason: Agitation Stop: 04/01/18 06:35 Magnesium Hydroxide (Milk Of Magnesia) 30 ml PO HS PRN PRN Reason: Constipation Magnesium Hydroxide (Milk Of Magnesia) 30 ml PO DAILY PRN PRN Reason: Constipation Stop: 04/02/18 07:56 Multivitamins/Vitamin C (Theragran) 1 tab PO DAILY [facility] Stop: 04/01/18 08:59 Last Admin: 02/03/18 09:45 Dose: 1 tab Mupirocin (Bactroban Oint) 1 appl NS BID [facility] Stop: 02/06/18 09:01 Last Admin: 02/03/18 18:56 Dose: Not Given Pantoprazole Sodium (Protonix) 40 mg PO QDAC [facility] Stop: 04/01/18 08:59 Last Admin: 02/03/18 06:44 Dose: 40 mg Sertraline HCl (Zoloft) 50 mg PO DAILY [facility] Stop: 04/03/18 08:59 Last Admin: 02/03/18 09:45 Dose: 50 mg Sodium Phosphate (Fleet Enema) 133 ml RC DAILY PRN PRN Reason: Constipation Stop: 04/01/18 06:43 Valsartan (Diovan) 80 mg PO BID [facility] Stop: 04/01/18 08:59 Last Admin: 02/03/18 18:56 Dose: Not Given Zolpidem Tartrate (Ambien) 5 mg PO HS PRN PRN Reason: Insomnia Stop: 04/01/18 02:25 Last Admin: 02/03/18 20:18 Dose: 5 mg General: Alert, Other (confused) HEENT: Atraumatic, PERRLA, EOMI Neck: Supple Cardiovascular: Regular rate Abdomen: Bowel sounds, Soft Extremities: no Clubbing, no Cyanosis, no Edema - Procedures Procedures: Procedures Procedure Code Date DRAINAGE OF L PLEURAL CAV WITH DRAIN DEV, PERC APPROACH [id number] 08/06/15 INSERTION OF CHEST TUBE 89304 08/06/15 Assessment/Plan - Assessment Assessment: psychosis renal insufficiency dementia Hypertension elevated DM II Asthma/COPD CVA/TIA (TIA) Dyslipidemia Other (high fall risk) - Plan Plan: admit to [facility]. continue current medications Nutritional Asmnt/Malnutr-PDOC - Dietary Evaluation Malnutrition Findings (Please click <Entered> for more info): Nutritional Asmnt/Malnutrition Start: 01/31/18 13: 05 Text: Status: Complete Freq: Protocol: Document 01/31/18 13:05 LCHENG (Rec: 01/31/18 13:18 LCHENG [email or web address]) Nutritional Asmnt/Malnutrition Patient General Information Nutritional Screening High Risk Diagnosis psychosis, agitation Pertinent Medical Hx/Surgical Hx psychosis, dementia, DM, HTN, asthma/COPD, CVA/TIA (TIA), dyslipidemia Subjective Information Pt seen sleeping quitely at time of visit. Per WAREHOUSE SORTER, pt ate breakfast this morning. Current Diet Order/ Nutrition Support [facility] soft ground Pertinent Medications oscal w/vit D, colace, novolog , theragran, protonix Pertinent Labs 01/30 BUN 26, Glucose 215, POC 178-193 Nutritional Hx/Data Height 1.7 m Height (Calculated Centimeters) 170.2 Current Weight (lbs) 78.925 kg Weight (Calculated Kilograms) 78.9 Weight (Calculated Grams) 15483.1 [place] Body Weight 148 Body Mass Index (BMI) 27.2 Weight Status Overweight GI Symptoms GI Symptoms None Last BM not indicated Difficult in: None Skin Integrity/Comment: intact Estimated Nutritional Goals Calories/Kcals/Kg 25-30 based on IBW 67kg Kcals Calculated 6190-4196 Protein g/k-1.2 Protein Calculated 67-80 Fluid: ml 1675-2010ml (1ml/kcal) Nutritional Problem 1. Problem Problem altered nutrition related labs Etiology hx of DM Signs/Symptoms: Glucose 215, POC 178-193 Malnutrition Alert Is there a minimum of two criteria No selected? Query Text:Check all the applicable criteria. A minimum of two criteria are recommended for diagnosis of either severe or non-severe malnutrition. Malnutrition Related to Morbid Obesity Malnutrition related to morbid obesity No Intervention/Recommendation Comments 1. Continue with current diet as ordered. Provide diabetic education if needed. 2. Monitor PO intake, wt, labs and skin integrity 3. F/U as moderate risk in 3-5 days, 02/03-02/05 Expected Outcomes/Goals Expected Outcomes/Goals 1. PO intake to meet at least 75% of nutritional needs. 2. Wt stability, skin to remain intact, labs to approach WNL.
[2018-02-04] MEDS: Pantoprazole 40 mg EC Tab PO SCH (06:34)
[2018-02-04] MEDS: INSULIN ASPART SLIDING SCALE 100 UNITS/ML UNIT SUBQ SCH ×2 (08:48→16:49)
[2018-02-04] MEDS: Multivitamin Tab PO SCH (09:57)
[2018-02-04] MEDS: Calcium Carb/Vit D 500 mg/200 U Tab PO SCH ×2 (09:57→16:41)
--- NOTE | 2018-02-04 17:52 | Progress Notes ---
DATE: 02/04/2018 PSYCHIATRIC SUBJECTIVE: Staff was spoken to. The patient is interviewed. Mood is noted to be depressed. Affect is constricted. The patient is isolative and withdrawn. The patient has been taken off of the Zyprexa and has been placed on the Abilify with the hope that it is going to be activating the patient and then patient is going to be participating in the groups, able to verbalize the concerns. The patient at this time is still isolative and withdrawn. ASSESSMENT: The patient is still depressed and paranoid. PLAN: To continue the patient with the supportive therapy, encouraged the patient with these changes in the medications and follow. JOB# [id number]
[2018-02-04] MEDS: Atorvastatin Calcium 10 MG TAB PO SCH (20:25)
[2018-02-05] MEDS: Pantoprazole 40 mg EC Tab PO SCH (06:32)
--- NOTE | 2018-02-05 08:05 | General Progress Note ---
Subjective - Review of Systems Service Date: 02/05/18 Subjective: Awake,alert,but confused VS T98.1 P 72 BP 140/87 R 20 Objective - Results Result Diagrams: 01/30/18 23:10 02/02/18 07:30 Recent Labs: Laboratory Last Values WBC 8.7 Th/cmm (4.8-10.8) 01/30/18 23:10 RBC 4.14 Mil/cmm (3.80-5.80) 01/30/18 23:10 Hgb 12.9 gm/dL (12-16) 01/30/18 23:10 Hct 37.6 % (41.0-60) L 01/30/18 23:10 MCV 90.9 fl (80-99) 01/30/18 23:10 MCH 31.1 pg (27.0-31.0) H 01/30/18 23:10 MCHC Differential 34.2 pg (28.0-36.0) 01/30/18 23:10 RDW 13.0 % (11.5-20.0) 01/30/18 23:10 Plt Count 201 Th/cmm (150-400) 01/30/18 23:10 MPV 8.1 fl 01/30/18 23:10 Neutrophils % 61.0 % (40.0-80.0) 01/30/18 23:10 Lymphocytes % 26.7 % (20.0-50.0) 01/30/18 23:10 Monocytes % 8.3 % (2.0-10.0) 01/30/18 23:10 Eosinophils % 3.6 % (0.0-5.0) 01/30/18 23:10 Basophils % 0.4 % (0.0-2.0) 01/30/18 23:10 Sodium 137 mEq/L (136-145) 02/02/18 07:30 Potassium 3.8 mEq/L (3.5-5.1) 02/02/18 07:30 Chloride 102 mEq/L (98-107) 02/02/18 07:30 Carbon Dioxide 29.0 mEq/L (21.0-31.0) 02/02/18 07:30 Anion Gap 9.8 (7.0-16.0) 02/02/18 07:30 BUN 31 mg/dL (7-25) H 02/02/18 07:30 Creatinine 1.3 mg/dL (0.7-1.3) 02/02/18 07:30 Est GFR ( Amer) > 60.0 ml/min (>90) 02/02/18 07:30 Est GFR (Non-Af Amer) 58.3 ml/min 02/02/18 07:30 BUN/Creatinine Ratio 23.8 02/02/18 07:30 Glucose 141 mg/dL (70-105) H 02/02/18 07:30 POC Glucose 137 MG/DL (70 - 105) H 02/05/18 06:09 Hemoglobin A1c % 7.2 % (4.0-6.0) H 01/30/18 23:10 Calcium 9.2 mg/dL (8.6-10.3) 02/02/18 07:30 Magnesium 2.2 mg/dL (1.9-2.7) 01/30/18 23:10 Total Bilirubin 0.3 mg/dL (0.3-1.0) 01/30/18 23:10 AST 17 U/L (13-39) 01/30/18 23:10 ALT 16 U/L (7-52) 01/30/18 23:10 Alkaline Phosphatase 86 U/L (34-104) 01/30/18 23:10 Troponin I 0.01 ng/mL (0.01-0.05) 01/30/18 23:10 B-Natriuretic Peptide 14.6 pg/mL (5.0-100.0) 01/30/18 23:10 Total Protein 6.8 gm/dL (6.0-8.3) 01/30/18 23:10 Albumin 3.8 gm/dL (4.2-5.5) L 01/30/18 23:10 Globulin 3.0 gm/dL 01/30/18 23:10 Albumin/Globulin Ratio 1.3 (1.0-1.8) 01/30/18 23:10 Triglycerides 147 mg/dL (<150) 02/02/18 07:30 Cholesterol 177 mg/dL (<200) 02/02/18 07:30 LDL Cholesterol Direct 106 mg/dL (75-193) 02/02/18 07:30 HDL Cholesterol 41 mg/dL (23-92) 02/02/18 07:30 TSH 2.90 uIU/ml (0.34-5.60) 02/02/18 07:30 - Physical Exam Vitals and I&O: Vital Signs Temp 98.1 F 02/04/18 20:06 Pulse 72 02/04/18 20:06 Resp 20 02/04/18 20:06 BP 140/87 02/04/18 20:06 Pulse Ox 96 02/04/18 20:06 Intake & Output 02/04/18 02/05/18 02/05/18 18:59 06:59 18:59 Intake Total 1200 240 Balance 1200 240 Intake: Oral 1200 240 Other: # Voids 3 2 # Bowel Movements 0 Active Medications: Current Medications Acetaminophen (Tylenol) 650 mg PO Q4HR PRN PRN Reason: Mild Pain / Temp above 100 Stop: 04/01/18 02:25 Al Hydrox/Mg Hydrox/Simethicone (Maalox) 30 ml PO Q4HR PRN PRN Reason: GI DISTRESS Stop: 04/01/18 02:25 Amlodipine Besylate (Norvasc) 5 mg PO DAILY [facility] Stop: 04/01/18 08:59 Last Admin: 02/04/18 09:57 Dose: 5 mg Aripiprazole (Abilify) 2 mg PO DAILY [facility]; Protocol Stop: 04/05/18 08:59 Last Admin: 02/04/18 09:58 Dose: 2 mg Atorvastatin Calcium (Lipitor) 10 mg PO HS [facility]; Protocol Stop: 04/01/18 20:59 Last Admin: 02/04/18 20:25 Dose: 10 mg Calcium/Vitamin D (Oscal W/Vitamin D) 1 tab PO BID [facility] Stop: 04/01/18 08:59 Last Admin: 02/04/18 16:41 Dose: 1 tab Docusate Sodium (Colace) 100 mg PO DAILY [facility] Stop: 04/01/18 08:59 Last Admin: 02/04/18 09:57 Dose: 100 mg Donepezil HCl (Aricept) 5 mg PO HS [facility] Stop: 04/01/18 20:59 Last Admin: 02/04/18 20:25 Dose: 5 mg Hydroxyzine HCl (Atarax) 25 mg PO Q8H PRN; Protocol PRN Reason: Itching Stop: 04/01/18 06:43 Insulin Aspart (Novolog Insulin Sliding Scale) 0 units SUBQ BID [facility]; Protocol Stop: 04/01/18 08:59 Last Admin: 02/04/18 16:49 Dose: Not Given Lorazepam (Ativan) 0.5 mg PO Q4H PRN; Protocol PRN Reason: Anxiety Stop: 04/01/18 02:25 Last Admin: 02/03/18 15:18 Dose: 0.5 mg Lorazepam (Ativan) 0.5 mg IM Q6H PRN; Protocol PRN Reason: Agitation Stop: 04/01/18 06:35 Magnesium Hydroxide (Milk Of Magnesia) 30 ml PO HS PRN PRN Reason: Constipation Magnesium Hydroxide (Milk Of Magnesia) 30 ml PO DAILY PRN PRN Reason: Constipation Stop: 04/02/18 07:56 Multivitamins/Vitamin C (Theragran) 1 tab PO DAILY [facility] Stop: 04/01/18 08:59 Last Admin: 02/04/18 09:57 Dose: 1 tab Mupirocin (Bactroban Oint) 1 appl NS BID [facility] Stop: 02/06/18 09:01 Last Admin: 02/04/18 16:50 Dose: 1 appl Pantoprazole Sodium (Protonix) 40 mg PO QDAC [facility] Stop: 04/01/18 08:59 Last Admin: 02/05/18 06:32 Dose: 40 mg Sertraline HCl (Zoloft) 50 mg PO DAILY [facility] Stop: 04/03/18 08:59 Last Admin: 02/04/18 09:57 Dose: 50 mg Sodium Phosphate (Fleet Enema) 133 ml RC DAILY PRN PRN Reason: Constipation Stop: 04/01/18 06:43 Valsartan (Diovan) 80 mg PO BID [facility] Stop: 04/01/18 08:59 Last Admin: 02/04/18 16:40 Dose: 80 mg Zolpidem Tartrate (Ambien) 5 mg PO HS PRN PRN Reason: Insomnia Stop: 04/01/18 02:25 Last Admin: 02/03/18 20:18 Dose: 5 mg General: Alert, Other (confused) HEENT: Atraumatic, PERRLA, EOMI Neck: Supple Cardiovascular: Regular rate Abdomen: Bowel sounds, Soft Extremities: no Clubbing, no Cyanosis, no Edema - Procedures Procedures: Procedures Procedure Code Date DRAINAGE OF L PLEURAL CAV WITH DRAIN DEV, PERC APPROACH [id number] 08/06/15 INSERTION OF CHEST TUBE 64276 08/06/15 Assessment/Plan - Assessment Assessment: psychosis renal insufficiency dementia Hypertension elevated DM II Asthma/COPD CVA/TIA (TIA) Dyslipidemia Other (high fall risk) - [facility] Nutritional Asmnt/Malnutr-PDOC - Dietary Evaluation Malnutrition Findings (Please click <Entered> for more info): Nutritional Asmnt/Malnutrition Start: 01/31/18 13: 05 Text: Status: Complete Freq: Protocol: Document 01/31/18 13:05 LCHENG (Rec: 01/31/18 13:18 LCHENG [email or web address]) Nutritional Asmnt/Malnutrition Patient General Information Nutritional Screening High Risk Diagnosis psychosis, agitation Pertinent Medical Hx/Surgical Hx psychosis, dementia, DM, HTN, asthma/COPD, CVA/TIA (TIA), dyslipidemia Subjective Information Pt seen sleeping quitely at time of visit. Per REGISTERED DENTAL ASSISTANT, pt ate breakfast this morning. Current Diet Order/ Nutrition Support [facility] soft ground Pertinent Medications oscal w/vit D, colace, novolog , theragran, protonix Pertinent Labs 01/30 BUN 26, Glucose 215, POC 178-193 Nutritional Hx/Data Height 1.7 m Height (Calculated Centimeters) 170.2 Current Weight (lbs) 78.925 kg Weight (Calculated Kilograms) 78.9 Weight (Calculated Grams) 33708.1 [place] Body Weight 148 Body Mass Index (BMI) 27.2 Weight Status Overweight GI Symptoms GI Symptoms None Last BM not indicated Difficult in: None Skin Integrity/Comment: intact Estimated Nutritional Goals Calories/Kcals/Kg 25-30 based on IBW 67kg Kcals Calculated 2331-7259 Protein g/k-1.2 Protein Calculated 67-80 Fluid: ml 1675-2010ml (1ml/kcal) Nutritional Problem 1. Problem Problem altered nutrition related labs Etiology hx of DM Signs/Symptoms: Glucose 215, POC 178-193 Malnutrition Alert Is there a minimum of two criteria No selected? Query Text:Check all the applicable criteria. A minimum of two criteria are recommended for diagnosis of either severe or non-severe malnutrition. Malnutrition Related to Morbid Obesity Malnutrition related to morbid obesity No Intervention/Recommendation Comments 1. Continue with current diet as ordered. Provide diabetic education if needed. 2. Monitor PO intake, wt, labs and skin integrity 3. F/U as moderate risk in 3-5 days, 02/03-02/05 Expected Outcomes/Goals Expected Outcomes/Goals 1. PO intake to meet at least 75% of nutritional needs. 2. Wt stability, skin to remain intact, labs to approach WNL.
[2018-02-05] MEDS: Calcium Carb/Vit D 500 mg/200 U Tab PO SCH ×2 (09:29→16:44)
[2018-02-05] MEDS: Multivitamin Tab PO SCH (09:30)
[2018-02-05] MEDS: INSULIN ASPART SLIDING SCALE 100 UNITS/ML UNIT SUBQ SCH ×2 (09:33→16:54)
--- NOTE | 2018-02-05 20:43 | Progress Notes ---
DATE: 02/05/2018 SUBJECTIVE: Staff was spoken to. The patient is interviewed. Mood is noted to be irritable. Affect is constricted. The patient is still isolative and withdrawn. Even after taking the Zyprexa off, the patient is still very withdrawn. Coping skills are noted to be very poor. No side effects to the medications are noted. The patient has been placed on the Abilify 2 mg along with the sertraline 50 mg and the patient is going to be closely monitored and followed up. JOB# [id number]
[2018-02-05] MEDS: Atorvastatin Calcium 10 MG TAB PO SCH (20:56)
[2018-02-06] MEDS: Pantoprazole 40 mg EC Tab PO SCH (06:40)
--- NOTE | 2018-02-06 08:20 | General Progress Note ---
Subjective - Review of Systems Service Date: 02/06/18 Subjective: Awake,alert,but confused VS T98.1 P 72 BP 140/87 R 20 Objective - Results Result Diagrams: 01/30/18 23:10 02/02/18 07:30 Recent Labs: Laboratory Last Values WBC 8.7 Th/cmm (4.8-10.8) 01/30/18 23:10 RBC 4.14 Mil/cmm (3.80-5.80) 01/30/18 23:10 Hgb 12.9 gm/dL (12-16) 01/30/18 23:10 Hct 37.6 % (41.0-60) L 01/30/18 23:10 MCV 90.9 fl (80-99) 01/30/18 23:10 MCH 31.1 pg (27.0-31.0) H 01/30/18 23:10 MCHC Differential 34.2 pg (28.0-36.0) 01/30/18 23:10 RDW 13.0 % (11.5-20.0) 01/30/18 23:10 Plt Count 201 Th/cmm (150-400) 01/30/18 23:10 MPV 8.1 fl 01/30/18 23:10 Neutrophils % 61.0 % (40.0-80.0) 01/30/18 23:10 Lymphocytes % 26.7 % (20.0-50.0) 01/30/18 23:10 Monocytes % 8.3 % (2.0-10.0) 01/30/18 23:10 Eosinophils % 3.6 % (0.0-5.0) 01/30/18 23:10 Basophils % 0.4 % (0.0-2.0) 01/30/18 23:10 Sodium 137 mEq/L (136-145) 02/02/18 07:30 Potassium 3.8 mEq/L (3.5-5.1) 02/02/18 07:30 Chloride 102 mEq/L (98-107) 02/02/18 07:30 Carbon Dioxide 29.0 mEq/L (21.0-31.0) 02/02/18 07:30 Anion Gap 9.8 (7.0-16.0) 02/02/18 07:30 BUN 31 mg/dL (7-25) H 02/02/18 07:30 Creatinine 1.3 mg/dL (0.7-1.3) 02/02/18 07:30 Est GFR ( Amer) > 60.0 ml/min (>90) 02/02/18 07:30 Est GFR (Non-Af Amer) 58.3 ml/min 02/02/18 07:30 BUN/Creatinine Ratio 23.8 02/02/18 07:30 Glucose 141 mg/dL (70-105) H 02/02/18 07:30 POC Glucose 140 MG/DL (70 - 105) H 02/05/18 16:49 Hemoglobin A1c % 7.2 % (4.0-6.0) H 01/30/18 23:10 Calcium 9.2 mg/dL (8.6-10.3) 02/02/18 07:30 Magnesium 2.2 mg/dL (1.9-2.7) 01/30/18 23:10 Total Bilirubin 0.3 mg/dL (0.3-1.0) 01/30/18 23:10 AST 17 U/L (13-39) 01/30/18 23:10 ALT 16 U/L (7-52) 01/30/18 23:10 Alkaline Phosphatase 86 U/L (34-104) 01/30/18 23:10 Troponin I 0.01 ng/mL (0.01-0.05) 01/30/18 23:10 B-Natriuretic Peptide 14.6 pg/mL (5.0-100.0) 01/30/18 23:10 Total Protein 6.8 gm/dL (6.0-8.3) 01/30/18 23:10 Albumin 3.8 gm/dL (4.2-5.5) L 01/30/18 23:10 Globulin 3.0 gm/dL 01/30/18 23:10 Albumin/Globulin Ratio 1.3 (1.0-1.8) 01/30/18 23:10 Triglycerides 147 mg/dL (<150) 02/02/18 07:30 Cholesterol 177 mg/dL (<200) 02/02/18 07:30 LDL Cholesterol Direct 106 mg/dL (75-193) 02/02/18 07:30 HDL Cholesterol 41 mg/dL (23-92) 02/02/18 07:30 TSH 2.90 uIU/ml (0.34-5.60) 02/02/18 07:30 - Physical Exam Vitals and I&O: Vital Signs Temp 98.3 F 02/06/18 05:58 Pulse 73 02/06/18 05:58 Resp 20 02/06/18 05:58 BP 130/88 02/06/18 05:58 Pulse Ox 93 02/06/18 05:58 Intake & Output 02/05/18 02/06/18 02/06/18 18:59 06:59 18:59 Intake Total 1200 240 Balance 1200 240 Intake: Oral 1200 240 Other: # Voids 3 2 # Bowel Movements 1 Active Medications: Current Medications Acetaminophen (Tylenol) 650 mg PO Q4HR PRN PRN Reason: Mild Pain / Temp above 100 Stop: 04/01/18 02:25 Al Hydrox/Mg Hydrox/Simethicone (Maalox) 30 ml PO Q4HR PRN PRN Reason: GI DISTRESS Stop: 04/01/18 02:25 Amlodipine Besylate (Norvasc) 5 mg PO DAILY [facility] Stop: 04/01/18 08:59 Last Admin: 02/05/18 09:32 Dose: 5 mg Aripiprazole (Abilify) 2 mg PO DAILY BRE; Protocol Stop: 04/05/18 08:59 Last Admin: 02/05/18 09:30 Dose: 2 mg Atorvastatin Calcium (Lipitor) 10 mg PO HS BRE; Protocol Stop: 04/01/18 20:59 Last Admin: 02/05/18 20:56 Dose: 10 mg Calcium/Vitamin D (Oscal W/Vitamin D) 1 tab PO BID BRE Stop: 04/01/18 08:59 Last Admin: 02/05/18 16:44 Dose: 1 tab Docusate Sodium (Colace) 100 mg PO DAILY BRE Stop: 04/01/18 08:59 Last Admin: 02/05/18 09:29 Dose: 100 mg Donepezil HCl (Aricept) 5 mg PO HS [facility] Stop: 04/01/18 20:59 Last Admin: 02/05/18 20:56 Dose: 5 mg Hydroxyzine HCl (Atarax) 25 mg PO Q8H PRN; Protocol PRN Reason: Itching Stop: 04/01/18 06:43 Insulin Aspart (Novolog Insulin Sliding Scale) 0 units SUBQ BID [facility]; Protocol Stop: 04/01/18 08:59 Last Admin: 02/05/18 16:54 Dose: 2 units Lorazepam (Ativan) 0.5 mg PO Q4H PRN; Protocol PRN Reason: Anxiety Stop: 04/01/18 02:25 Last Admin: 02/03/18 15:18 Dose: 0.5 mg Lorazepam (Ativan) 0.5 mg IM Q6H PRN; Protocol PRN Reason: Agitation Stop: 04/01/18 06:35 Magnesium Hydroxide (Milk Of Magnesia) 30 ml PO HS PRN PRN Reason: Constipation Magnesium Hydroxide (Milk Of Magnesia) 30 ml PO DAILY PRN PRN Reason: Constipation Stop: 04/02/18 07:56 Multivitamins/Vitamin C (Theragran) 1 tab PO DAILY BRE Stop: 04/01/18 08:59 Last Admin: 02/05/18 09:30 Dose: 1 tab Mupirocin (Bactroban Oint) 1 appl NS BID [facility] Stop: 02/06/18 09:01 Last Admin: 02/05/18 16:45 Dose: 1 appl Pantoprazole Sodium (Protonix) 40 mg PO QDAC BRE Stop: 04/01/18 08:59 Last Admin: 02/06/18 06:40 Dose: 40 mg Sertraline HCl (Zoloft) 50 mg PO DAILY [facility] Stop: 04/03/18 08:59 Last Admin: 02/05/18 09:30 Dose: 50 mg Sodium Phosphate (Fleet Enema) 133 ml RC DAILY PRN PRN Reason: Constipation Stop: 04/01/18 06:43 Valsartan (Diovan) 80 mg PO BID [facility] Stop: 04/01/18 08:59 Last Admin: 02/05/18 16:44 Dose: 80 mg Zolpidem Tartrate (Ambien) 5 mg PO HS PRN PRN Reason: Insomnia Stop: 04/01/18 02:25 Last Admin: 02/03/18 20:18 Dose: 5 mg General: Alert, Other (confused) HEENT: Atraumatic, PERRLA, EOMI Neck: Supple Cardiovascular: Regular rate Abdomen: Bowel sounds, Soft Extremities: no Clubbing, no Cyanosis, no Edema - Procedures Procedures: Procedures Procedure Code Date DRAINAGE OF L PLEURAL CAV WITH DRAIN DEV, PERC APPROACH [id number] 08/06/15 INSERTION OF CHEST TUBE 47793 08/06/15 Assessment/Plan - Assessment Assessment: psychosis renal insufficiency dementia Hypertension elevated DM II Asthma/COPD CVA/TIA (TIA) Dyslipidemia Other (high fall risk) - Plan [facility] Nutritional Asmnt/Malnutr-PDOC - Dietary Evaluation Malnutrition Findings (Please click <Entered> for more info): Nutritional Asmnt/Malnutrition Start: 01/31/18 13: 05 Text: Status: Complete Freq: Protocol: Document 01/31/18 13:05 LCHENG (Rec: 01/31/18 13:18 LCHENG [email or web address]) Nutritional Asmnt/Malnutrition Patient General Information Nutritional Screening High Risk Diagnosis psychosis, agitation Pertinent Medical Hx/Surgical Hx psychosis, dementia, DM, HTN, asthma/COPD, CVA/TIA (TIA), dyslipidemia Subjective Information Pt seen sleeping quitely at time of visit. Per LYRIC WRITER, pt ate breakfast this morning. Current Diet Order/ Nutrition Support [facility] soft ground Pertinent Medications oscal w/vit D, colace, novolog , theragran, protonix Pertinent Labs 01/30 BUN 26, Glucose 215, POC 178-193 Nutritional Hx/Data Height 1.7 m Height (Calculated Centimeters) 170.2 Current Weight (lbs) 78.925 kg Weight (Calculated Kilograms) 78.9 Weight (Calculated Grams) 30548.1 [place] Body Weight 148 Body Mass Index (BMI) 27.2 Weight Status Overweight GI Symptoms GI Symptoms None Last BM not indicated Difficult in: None Skin Integrity/Comment: intact Estimated Nutritional Goals Calories/Kcals/Kg 25-30 based on IBW 67kg Kcals Calculated 1406-7153 Protein g/k-1.2 Protein Calculated 67-80 Fluid: ml 1675-2010ml (1ml/kcal) Nutritional Problem 1. Problem Problem altered nutrition related labs Etiology hx of DM Signs/Symptoms: Glucose 215, POC 178-193 Malnutrition Alert Is there a minimum of two criteria No selected? Query Text:Check all the applicable criteria. A minimum of two criteria are recommended for diagnosis of either severe or non-severe malnutrition. Malnutrition Related to Morbid Obesity Malnutrition related to morbid obesity No Intervention/Recommendation Comments 1. Continue with current diet as ordered. Provide diabetic education if needed. 2. Monitor PO intake, wt, labs and skin integrity 3. F/U as moderate risk in 3-5 days, 02/03-02/05 Expected Outcomes/Goals Expected Outcomes/Goals 1. PO intake to meet at least 75% of nutritional needs. 2. Wt stability, skin to remain intact, labs to approach WNL.
[2018-02-06] MEDS: Calcium Carb/Vit D 500 mg/200 U Tab PO SCH ×3 (09:19→16:18)
[2018-02-06] MEDS: Multivitamin Tab PO SCH ×2 (09:19→10:36)
[2018-02-06] MEDS: INSULIN ASPART SLIDING SCALE 100 UNITS/ML UNIT SUBQ SCH ×2 (09:20→17:02)
--- NOTE | 2018-02-07 00:06 | Progress Notes ---
DATE: 02/06/2018 PSYCHIATRIC PROGRESS NOTE SUBJECTIVE: Staff was spoken to. The patient is interviewed. Mood is noted to be irritable. Affect is constricted. Coping skills at this time are noted to be poor. Insight and judgment also noted to be improving. The patient, however, has been showing a little bit more of activities since the Zyprexa has been discontinued. The patient has been placed on the Abilify. No side effects to the medications are noted today. ASSESSMENT AND PLAN: The patient is not presenting with any threats to harm self or others and hence it is decided to discharge the patient for followup on outpatient basis. JOB# [id number]
== END 2018-02-06 19:27 | DRG 885 ==
LOC: ER 22:43 → GERO2 01-31
DX: F33.3 Major depressive disorder, recurrent, severe with psychotic symptoms (principal); F03.90 Unspecified dementia, unspecified severity, without behavioral disturbance, psychotic disturbance, mood disturbance, and anxiety; I10 Essential (primary) hypertension; E78.5 Hyperlipidemia, unspecified; J44.9 Chronic obstructive pulmonary disease, unspecified; N28.9 Disorder of kidney and ureter, unspecified; F29 Unspecified psychosis not due to a substance or known physiological condition; E11.9 Type 2 diabetes mellitus without complications; E66.9 Obesity, unspecified; Z86.73 Personal history of transient ischemic attack (TIA), and cerebral infarction without residual deficits; Z68.27 Body mass index [BMI] 27.0-27.9, adult
CPT/HCPCS: 36415-UA; 71045-TC; 80048-TC; 80053-TC; 80061-TC; 82948-90; 83036-90; 83735-TC; 83880-TC; 84443-TC; 84484-TC; 85025-TC; 93005; J1815; J7051; Z7610

== ENCOUNTER 2018-03-13 18:31 | Inpatient (IN) | payer MEDICARE, MEDICAID ==
[2018-03-13 19:30] LABS: EOSINOPHILE ABSOLUTE 0.1 Th/cmm (0.1-0.4); MONOCYTE ABSOLUTE 0.7 Th/cmm (0.3-1.0)
[2018-03-13 19:32] LABS: % BASOPHILS 0.9 % (0.0-2.0); % LYMPHOCYTES 20.6 % (20.0-50.0); % MONOCYTES 7.2 % (2.0-10.0); % NEUTROPHILS 70.3 % (40.0-80.0); BASOPHILE ABSOLUTE 0.1 Th/cumm (0-0.2); HEMOGLOBIN 13.5 gm/dL (12-16); MEAN CELL VOLUME 92.5 fl (80-99); MEAN CORPUSCULAR HEMOGLOBIN 31.3 pg (27.0-31.0); MEAN CORPUSCULAR HGB CONC 33.8 pg (28.0-36.0); MEAN PLATELET VOLUME 7.5 fl; NEUTROPHILE ABSOLUTE 6.8 Th/cmm (1.8-8.0); PLATELET COUNT 232 Th/cmm (150-400); RED BLOOD COUNT 4.32 Mil/cmm (3.80-5.80); RED CELL DISTRIBUTION WIDTH 13.1 % (11.5-20.0); WHITE BLOOD COUNT 9.7 Th/cmm (4.8-10.8)
[2018-03-13 19:40] LABS: INR 0.9 (0.5-1.4); PROTHROMBIN TIME (TEST) 9.3 SECONDS (9.5-11.5)
[2018-03-13 19:42] LABS: ALB/GLOB RATIO 1.4 (1.0-1.8); ALKALINE PHOSPHATASE 71 U/L (34-104); ANION GAP 8.9 (7.0-16.0); BILIRUBIN,TOTAL 0.6 mg/dL (0.3-1.0); BUN - UREA NITROGEN 25 mg/dL (7-25); CALCIUM SERUM 9.3 mg/dL (8.6-10.3); CHLORIDE 104 mEq/L (98-107); CREATININE - SERUM 1.2 mg/dL (0.7-1.3); GFR AFRICAN-AMERICAN > 60.0 ml/min (>90); GFR NON AFRICAN-AMERICAN > 60.0 ml/min; GLUCOSE 163 mg/dL (70-105); POTASSIUM SERUM 3.9 mEq/L (3.5-5.1); SGOT 18 U/L (13-39); SGPT/ALT 26 U/L (7-52); SODIUM SERUM 140 mEq/L (136-145); TOTAL PROTEIN,SERUM 6.9 gm/dL (6.0-8.3)
[2018-03-13 19:52] LABS: ESR SEDIMENTATION SED RATE 15 mm/hr (0-20)
--- NOTE | 2018-03-13 20:33 | ED Physician Chart ---
ED Chief Complaint/HPI - Patient Information Date Seen:: 03/13/18 Time Seen:: 20:33 Chief Complaint:: Aggressive behavior History of Present Illness:: 67 yo male was brought from SNF to ER for evaluation of aggressive behavior, striking staff and residents. Allergies:: Allergies Allergy/AdvReac Type Severity Reaction Status Date / Time No Known Allergies Allergy Verified 01/30/18 23:04 Vitals:: Vital Signs - 8 hr 03/13/18 18:46 Temp 98.1 F HR 69 RR 16 BP 113/80 O2 Sat % 94 ED Review of Systems - Review of Systems General/Constitutional: No fever, Weakness Skin: No skin lesions Eyes: No pain ENT: No nasal drainage Neck: No neck pain Cardio Vascular: No chest pain Pulmonary: No SOB GI: No nausea, No vomiting Musculoskeletal: No bone or joint pain Psychiatric: Prior psych history Neurological: Weakness ED Past Medical History - Past Medical History Past Medical History: HTN, DM, Asthma/COPD, CVA/TIA, Dyslipidemia Social History: Non Smoker (former smoker), No Alcohol, No Drug Use Psychiatricy History: Other (Psychosis) Family Medical History - Family Member Mother History Unknown: Yes Ethnicity: Unknown Living Status: Unknown ED Physical Exam - Physical Examination General/Constitutional: Awake Head: Atraumatic Eyes: PERRL Skin: No ecchymosis Other ENMT comments:: Facial weakness Neck: No nuchal rigidity Respiratory: No Wheeze/Rhonchi/Rales Cardio Vascular: RRR, No murmur, gallop, rubs, NL S1 S2 GI: No tenderness/rebounding/guarding Extremities: No edema Other Neuro/Psych comments:: Unsteady gait ED Labs/Radiology/EKG Results - Lab Results Results: Laboratory Tests 03/13/18 03/13/18 03/13/18 19:20 19:20 19:20 WBC 9.7 RBC 4.32 Hgb 13.5 Hct 40.0 L MCV 92.5 MCH 31.3 H MCHC Differential 33.8 RDW 13.1 Plt Count 232 MPV 7.5 Neutrophils % 70.3 Lymphocytes % 20.6 Monocytes % 7.2 Eosinophils % 1.0 Basophils % 0.9 ESR 15 PT 9.3 L INR 0.90 PTT (Actin FS) 24.8 L Sodium 140 Potassium 3.9 Chloride 104 Carbon Dioxide 31.0 Anion Gap 8.9 BUN 25 Creatinine 1.2 Est GFR ( Amer) > 60.0 Est GFR (Non-Af Amer) > 60.0 BUN/Creatinine Ratio 20.8 Glucose 163 H Calcium 9.3 Total Bilirubin 0.6 AST 18 ALT 26 Alkaline Phosphatase 71 Total Protein 6.9 Albumin 4.0 L Globulin 2.9 Albumin/Globulin Ratio 1.4 TSH 03/13/18 19:20 WBC RBC Hgb Hct MCV MCH MCHC Differential RDW Plt Count MPV Neutrophils % Lymphocytes % Monocytes % Eosinophils % Basophils % ESR PT INR PTT (Actin FS) Sodium Potassium Chloride Carbon Dioxide Anion Gap BUN Creatinine Est GFR ( Amer) Est GFR (Non-Af Amer) BUN/Creatinine Ratio Glucose Calcium Total Bilirubin AST ALT Alkaline Phosphatase Total Protein Albumin Globulin Albumin/Globulin Ratio TSH 1.21 ED Assessment - Assessment General Assessment: Hypertension DM II Hyperlipidemia History of CVA CHF Psychosis Assessment/Comments:: CBC, CMP, UA CXR, EKG Cleared for admission to [facility] unit ED Septic Shock - . Is Septic Shock (SBP<90, OR Lactate>4 mmol\L) present?: No - <6hrs of presentation: Vital Signs: Vital Signs - 8 hr 03/13/18 18:46 Temp 98.1 F HR 69 RR 16 BP 113/80 O2 Sat % 94 ED Reassessment (Disposition) - Reassessment Reassessment Condition:: Unchanged - Patient Disposition Discharge/Transfer:: [facility] w/in this hosp Admitting Medical Physician:: Diaz Marie Admitting Psych Physician:: Aleja Starr
[2018-03-13 21:23] VITALS: BP 152/93
[2018-03-13] MEDS ORDERED: Maalox 30 mL Cup PO PRN (21:24)
[2018-03-13] MEDS ORDERED: Magnesium Hydroxide (MOM) 30 mL UDC PO PRN (21:24)
[2018-03-13] MEDS ORDERED: Non-Formulary Item 1 EA (Clonidine Hcl [Clonidine Hcl Er] 0.1 MG) PO PRN (22:36)
[2018-03-14] MEDS: INSULIN ASPART SLIDING SCALE 100 UNITS/ML UNIT SUBQ SCH ×4 (06:40→21:40)
[2018-03-14] MEDS: Pantoprazole 40 mg EC Tab PO SCH (06:40)
--- NOTE | 2018-03-14 08:34 | History & Physical ---
ADMIT DATE: 03/13/2018 CHIEF COMPLAINT: Aggressive attitude. HISTORY OF PRESENT ILLNESS: This is a 67-year-old male patient who was admitted via the Emergency Room due to aggressive attitude towards co-residents and staff. The condition started a few hours prior to admission as agitation and aggressive attitude. This was accompanied by a tendency to be violent towards staff members and other residents. The patient was given symptomatic treatment; however, there was no improvement, hence was transferred to the Emergency Room and after evaluation by the ER physician he was subsequently admitted for further treatment. PAST MEDICAL HISTORY: The patient has history of psychosis, history of hyperlipidemia, TIA, diabetes mellitus and hypertension. FAMILY HISTORY: Unobtainable. REVIEW OF SYSTEMS: Unobtainable due to the patient's altered mental status. PHYSICAL EXAMINATION: GENERAL: On admission, the patient is a fairly developed, fairly nourished, awake, responsive, but tends to be confused and disoriented. VITAL SIGNS: Blood pressure 128/80, pulse 78 per minute, respirations 18 per minute, temperature 98 degrees Fahrenheit. HEENT: Head is normocephalic. Pupils PERRLA. Fundi not well appreciated due to the patient's inability to cooperate. Ears: No infection, no drainage. Nose: No septal deviation. Mouth: Fairly kept oral hygiene. Oral mucosa is moist. NECK: Supple, no rigidity, no lymphadenopathy, and no thyromegaly. Neck veins are not distended. CHEST: Symmetrical and equal in expansion. HEART: Regular in rate and rhythm. LUNGS: Reveal no rales, no wheezing, and no shortness of breath. ABDOMEN: Soft, no rigidity, no organomegaly. Bowel sounds hypoactive. RECTAL: The patient refused. GENITALIA: Normal adult male genitalia. SKIN: No active dermatitis. EXTREMITIES: Pulses are palpable. Reflexes are not elicited due to the patient's inability to cooperate. There is no pedal edema. IMPRESSION: 1. Acute psychosis. 2. Hypertension. 3. Diabetes mellitus. 4. Hyperlipidemia. 5. Dementia. PLAN: We will try to rule out above condition and treat them accordingly. We will request for psychiatric consult. JOB# [id number]
[2018-03-14] MEDS: Calcium Carb/Vit D 500 mg/200 U Tab PO SCH ×2 (09:09→17:45)
[2018-03-14] MEDS: Multivitamin Tab PO SCH (09:09)
[2018-03-14] MEDS ORDERED: Haloperidol Lactate 5 mg/mL 1mL Vial ONE (14:49)
[2018-03-14] MEDS ORDERED: Haloperidol Lactate 5 mg/mL 1mL Vial IM ONE (15:00)
[2018-03-14] MEDS: Atorvastatin Calcium 10 MG TAB PO SCH (21:39)
--- NOTE | 2018-03-14 22:54 | Psychiatric Evaluation ---
DATE OF SERVICE: 03/14/2018 IDENTIFYING DATA: The patient is at 67-year-old male, resident of [facility]. Information obtained directly interviewing the patient as well as reviewing the admission papers and they are reliable. JUSTIFICATION FOR HOSPITALIZATION: The patient admitted on a voluntary basis in view of his aggressive behavior towards the staff members. CHIEF COMPLAINT: "I do not know." HISTORY OF PRESENT ILLNESS: This is the second psychiatric hospitalization, who was hospitalized under my care in early part of January for his depression and the patient has been stabilized and has been discharged to be followed up on an outpatient basis. However, the patient is reported to have been getting out of control and has been screaming and yelling and has been getting aggressive towards the staff and hence the patient has been referred over here for further stabilization. The patient's sleep and appetite are noted to be poor at this time, the patient is not able to give much of information. MEDICAL HISTORY: Physical examination is requested to be done by Dr. Marie. SUBSTANCE ABUSE HISTORY: None. PHYSICAL OR SEXUAL ABUSE HISTORY: None. MENTAL STATUS EXAMINATION: The patient is a 67-year-old, looking his stated age, superficially cooperative. Eye contact is poor. Mood is noted to be irritable. Affect is constricted. Insight and judgment at this time are noted to be impaired. Impulse control is noted to be poor. Coping skills are noted to be very poor. The patient is reported to have been getting out of control. The patient's behavior is a clear danger to others at this time. The patient is reported to have been treated for the depression with Zoloft and Abilify, but the patient has taken a swing at the staff members and has to be given an emergency dose of Haldol. The patient is alert and awake and he is fully aware that he is in the hospital. Attention span and concentration are noted to be poor. The patient's short term memory is noted to be poor. Long-term memory seems to be fair. DIAGNOSTIC IMPRESSION: AXIS I: Major depressive disorder, recurrent with psychotic symptoms. AXIS II: None. AXIS III: As per Dr. Marie. IMMEDIATE TREATMENT PLAN: The patient is going to be observed on inpatient unit, provided with supportive psychotherapy. The patient is going to be closely monitored and encouraged to participate in the groups and verbalize the concerns rather than to act out. ESTIMATED LENGTH OF STAY: 5-7 days. DISCHARGE CRITERIA: When he no longer a threat to self or others and be able to cope up with the stress. [facility]# [id number]
[2018-03-15] MEDS: INSULIN ASPART SLIDING SCALE 100 UNITS/ML UNIT SUBQ SCH ×6 (06:44→20:43)
[2018-03-15] MEDS: Pantoprazole 40 mg EC Tab PO SCH (06:44)
--- NOTE | 2018-03-15 08:15 | General Progress Note ---
Subjective - Review of Systems Service Date: 03/15/18 Subjective: Awake, alert but confused. VS T97.7 P81 BP 131/77 P18 Objective - Results Result Diagrams: 03/13/18 19:20 03/13/18 19:20 Recent Labs: Laboratory Last Values WBC 9.7 Th/cmm (4.8-10.8) 03/13/18 19:20 RBC 4.32 Mil/cmm (3.80-5.80) 03/13/18 19:20 Hgb 13.5 gm/dL (12-16) 03/13/18 19:20 Hct 40.0 % (41.0-60) L 03/13/18 19:20 MCV 92.5 fl (80-99) 03/13/18 19:20 MCH 31.3 pg (27.0-31.0) H 03/13/18 19:20 MCHC Differential 33.8 pg (28.0-36.0) 03/13/18 19:20 RDW 13.1 % (11.5-20.0) 03/13/18 19:20 Plt Count 232 Th/cmm (150-400) 03/13/18 19:20 MPV 7.5 fl 03/13/18 19:20 Neutrophils % 70.3 % (40.0-80.0) 03/13/18 19:20 Lymphocytes % 20.6 % (20.0-50.0) 03/13/18 19:20 Monocytes % 7.2 % (2.0-10.0) 03/13/18 19:20 Eosinophils % 1.0 % (0.0-5.0) 03/13/18 19:20 Basophils % 0.9 % (0.0-2.0) 03/13/18 19:20 ESR 15 mm/hr (0-20) 03/13/18 19:20 PT 9.3 SECONDS (9.5-11.5) L 03/13/18 19:20 INR 0.90 (0.5-1.4) 03/13/18 19:20 PTT (Actin FS) 24.8 SECONDS (26.0-38.0) L 03/13/18 19:20 Sodium 140 mEq/L (136-145) 03/13/18 19:20 Potassium 3.9 mEq/L (3.5-5.1) 03/13/18 19:20 Chloride 104 mEq/L (98-107) 03/13/18 19:20 Carbon Dioxide 31.0 mEq/L (21.0-31.0) 03/13/18 19:20 Anion Gap 8.9 (7.0-16.0) 03/13/18 19:20 BUN 25 mg/dL (7-25) 03/13/18 19:20 Creatinine 1.2 mg/dL (0.7-1.3) 03/13/18 19:20 Est GFR ( Amer) > 60.0 ml/min (>90) 03/13/18 19:20 Est GFR (Non-Af Amer) > 60.0 ml/min 03/13/18 19:20 BUN/Creatinine Ratio 20.8 03/13/18 19:20 Glucose 163 mg/dL (70-105) H 03/13/18 19:20 Calcium 9.3 mg/dL (8.6-10.3) 03/13/18 19:20 Total Bilirubin 0.6 mg/dL (0.3-1.0) 03/13/18 19:20 AST 18 U/L (13-39) 03/13/18 19:20 ALT 26 U/L (7-52) 03/13/18 19:20 Alkaline Phosphatase 71 U/L (34-104) 03/13/18 19:20 Total Protein 6.9 gm/dL (6.0-8.3) 03/13/18 19:20 Albumin 4.0 gm/dL (4.2-5.5) L 03/13/18 19:20 Globulin 2.9 gm/dL 03/13/18 19:20 Albumin/Globulin Ratio 1.4 (1.0-1.8) 03/13/18 19:20 TSH 1.21 uIU/ml (0.34-5.60) 03/13/18 19:20 - Physical Exam Vitals and I&O: Vital Signs Temp 97.7 F 03/14/18 20:00 Pulse 81 03/14/18 20:00 Resp 18 03/14/18 20:00 BP 131/77 03/14/18 20:00 Pulse Ox 93 03/14/18 20:00 Intake & Output 03/14/18 03/15/18 03/15/18 18:59 06:59 18:59 Intake Total 200 Output Total 0 Balance 0 200 Intake: Oral 200 Output: Stool 0 Other: # Voids 2 1 Active Medications: Current Medications Acetaminophen (Tylenol) 650 mg PO Q4HR PRN PRN Reason: Mild Pain / Temp above 100 Stop: 05/12/18 21:23 Al Hydrox/Mg Hydrox/Simethicone (Maalox) 30 ml PO Q4HR PRN PRN Reason: GI DISTRESS Stop: 05/12/18 21:23 Amlodipine Besylate (Norvasc) 5 mg PO DAILY [facility] Stop: 05/13/18 08:59 Last Admin: 03/14/18 09:09 Dose: 5 mg Aripiprazole (Abilify) 2 mg PO DAILY [facility]; Protocol Stop: 05/13/18 08:59 Last Admin: 03/14/18 09:10 Dose: 2 mg Ascorbic Acid (Vitamin C) 500 mg PO DAILY [facility] Stop: 05/13/18 08:59 Last Admin: 03/14/18 09:10 Dose: 500 mg Atorvastatin Calcium (Lipitor) 10 mg PO HS [facility]; Protocol Stop: 05/13/18 20:59 Last Admin: 03/14/18 21:39 Dose: Not Given Bisacodyl (Dulcolax 10 Mg Supp) 10 mg RC DAILY PRN PRN Reason: Constipation Stop: 05/12/18 22:35 Calcium/Vitamin D (Oscal W/Vitamin D) 1 tab PO BID [facility] Stop: 05/13/18 08:59 Last Admin: 03/14/18 17:45 Dose: Not Given Docusate Sodium (Colace) 100 mg PO DAILY [facility] Stop: 05/13/18 08:59 Last Admin: 03/14/18 09:08 Dose: 100 mg Donepezil HCl (Aricept) 5 mg PO HS [facility] Stop: 05/13/18 20:59 Last Admin: 03/14/18 21:39 Dose: Not Given Insulin Aspart (Novolog Insulin Sliding Scale) 0 units SUBQ ACHS [facility]; Protocol Stop: 05/13/18 07:29 Last Admin: 03/15/18 06:44 Dose: Not Given Insulin Aspart (Novolog Insulin Sliding Scale) 0 units SUBQ ACHS [facility]; Protocol Stop: 05/14/18 11:29 Lorazepam (Ativan) 0.5 mg PO Q4HR PRN; Protocol PRN Reason: Anxiety/agitation Stop: 04/12/18 21:59 Magnesium Hydroxide (Milk Of Magnesia) 30 ml PO HS PRN PRN Reason: Constipation Multivitamins/Vitamin C (Theragran) 1 tab PO DAILY [facility] Stop: 05/13/18 08:59 Last Admin: 03/14/18 09:09 Dose: 1 tab Pantoprazole Sodium (Protonix) 40 mg PO QDAC BRE Stop: 05/13/18 07:29 Last Admin: 03/15/18 06:44 Dose: Not Given Sertraline HCl (Zoloft) 50 mg PO DAILY [facility]; Protocol Stop: 05/13/18 08:59 Last Admin: 03/14/18 09:09 Dose: 50 mg Valsartan (Diovan) 80 mg PO BID [facility] Stop: 05/13/18 08:59 Last Admin: 03/14/18 17:45 Dose: Not Given Zolpidem Tartrate (Ambien) 5 mg PO HS PRN PRN Reason: Insomnia Stop: 05/12/18 21:23 General: Alert, Oriented x3, No acute distress HEENT: Atraumatic, PERRLA, EOMI Neck: Supple, no JVD Cardiovascular: Normal S1, Normal S2 Lungs: Clear to auscultation Abdomen: Bowel sounds, Soft Extremities: no Clubbing, no Cyanosis, no Edema - Procedures Procedures: Procedures Procedure Code Date DRAINAGE OF L PLEURAL CAV WITH DRAIN DEV, PERC APPROACH [id number] 08/06/15 INSERTION OF CHEST TUBE [id number] 08/06/15 Assessment/Plan - Assessment Assessment: Acute Psychosis HTN DM Hyperlipidemia Dementia - Plan Plan: Continue current treatment.
[2018-03-15] MEDS: Multivitamin Tab PO SCH (08:26)
[2018-03-15] MEDS: Calcium Carb/Vit D 500 mg/200 U Tab PO SCH ×2 (08:30→17:40)
[2018-03-15] MEDS: Atorvastatin Calcium 10 MG TAB PO SCH (20:43)
--- NOTE | 2018-03-15 21:25 | Progress Notes ---
DATE: 03/15/2018 SUBJECTIVE: Staff was spoken to. Patient is interviewed. Mood is noted to be irritable. Affect is constricted. Insight and judgment are noted to be still impaired. Impulse control is noted to be limited. Coping skills are noted to be limited. The patient is being closely monitored for his aggressive behavior. The patient is currently on the sertraline 50 mg for his depression and the patient was given the Haldol yesterday and we have started the patient on 2 mg of the Abilify in view of the psychosis and depression. Also, the patient is able to tolerate the medication. No side effects to the medications are noted. ASSESSMENT: The patient is still depressed and paranoid and impulsive. PLAN: To continue the patient with the current medications and followup. JOB# [id number]
[2018-03-16] MEDS: Pantoprazole 40 mg EC Tab PO SCH (06:35)
[2018-03-16] MEDS: INSULIN ASPART SLIDING SCALE 100 UNITS/ML UNIT SUBQ SCH ×4 (06:35→21:20)
--- NOTE | 2018-03-16 06:37 | General Progress Note ---
Subjective - Review of Systems Service Date: 03/16/18 Subjective: Awake, alert but confused. VS T98.8 P92 BP 137/80 P19 Objective - Results Result Diagrams: 03/13/18 19:20 03/13/18 19:20 Recent Labs: Laboratory Last Values WBC 9.7 Th/cmm (4.8-10.8) 03/13/18 19:20 RBC 4.32 Mil/cmm (3.80-5.80) 03/13/18 19:20 Hgb 13.5 gm/dL (12-16) 03/13/18 19:20 Hct 40.0 % (41.0-60) L 03/13/18 19:20 MCV 92.5 fl (80-99) 03/13/18 19:20 MCH 31.3 pg (27.0-31.0) H 03/13/18 19:20 MCHC Differential 33.8 pg (28.0-36.0) 03/13/18 19:20 RDW 13.1 % (11.5-20.0) 03/13/18 19:20 Plt Count 232 Th/cmm (150-400) 03/13/18 19:20 MPV 7.5 fl 03/13/18 19:20 Neutrophils % 70.3 % (40.0-80.0) 03/13/18 19:20 Lymphocytes % 20.6 % (20.0-50.0) 03/13/18 19:20 Monocytes % 7.2 % (2.0-10.0) 03/13/18 19:20 Eosinophils % 1.0 % (0.0-5.0) 03/13/18 19:20 Basophils % 0.9 % (0.0-2.0) 03/13/18 19:20 ESR 15 mm/hr (0-20) 03/13/18 19:20 PT 9.3 SECONDS (9.5-11.5) L 03/13/18 19:20 INR 0.90 (0.5-1.4) 03/13/18 19:20 PTT (Actin FS) 24.8 SECONDS (26.0-38.0) L 03/13/18 19:20 Sodium 140 mEq/L (136-145) 03/13/18 19:20 Potassium 3.9 mEq/L (3.5-5.1) 03/13/18 19:20 Chloride 104 mEq/L (98-107) 03/13/18 19:20 Carbon Dioxide 31.0 mEq/L (21.0-31.0) 03/13/18 19:20 Anion Gap 8.9 (7.0-16.0) 03/13/18 19:20 BUN 25 mg/dL (7-25) 03/13/18 19:20 Creatinine 1.2 mg/dL (0.7-1.3) 03/13/18 19:20 Est GFR ( Amer) > 60.0 ml/min (>90) 03/13/18 19:20 Est GFR (Non-Af Amer) > 60.0 ml/min 03/13/18 19:20 BUN/Creatinine Ratio 20.8 03/13/18 19:20 Glucose 163 mg/dL (70-105) H 03/13/18 19:20 POC Glucose 139 MG/DL (70 - 105) H 03/16/18 06:27 Calcium 9.3 mg/dL (8.6-10.3) 03/13/18 19:20 Total Bilirubin 0.6 mg/dL (0.3-1.0) 03/13/18 19:20 AST 18 U/L (13-39) 03/13/18 19:20 ALT 26 U/L (7-52) 03/13/18 19:20 Alkaline Phosphatase 71 U/L (34-104) 03/13/18 19:20 Total Protein 6.9 gm/dL (6.0-8.3) 03/13/18 19:20 Albumin 4.0 gm/dL (4.2-5.5) L 03/13/18 19:20 Globulin 2.9 gm/dL 03/13/18 19:20 Albumin/Globulin Ratio 1.4 (1.0-1.8) 03/13/18 19:20 TSH 1.21 uIU/ml (0.34-5.60) 03/13/18 19:20 - Physical Exam Vitals and I&O: Vital Signs Temp 98.8 F 03/15/18 21:46 Pulse 92 03/15/18 21:46 Resp 19 03/15/18 21:46 BP 137/80 03/15/18 21:46 Pulse Ox 98 03/15/18 21:46 Intake & Output 03/15/18 03/15/18 03/16/18 06:59 18:59 06:59 Intake Total 200 500 Output Total 1 Balance 200 -1 500 Intake: Oral 200 500 Output: Stool 1 Other: # Voids 1 3 4 # Bowel Movements 0 Active Medications: Current Medications Acetaminophen (Tylenol) 650 mg PO Q4HR PRN PRN Reason: Mild Pain / Temp above 100 Stop: 05/12/18 21:23 Al Hydrox/Mg Hydrox/Simethicone (Maalox) 30 ml PO Q4HR PRN PRN Reason: GI DISTRESS Stop: 05/12/18 21:23 Amlodipine Besylate (Norvasc) 5 mg PO DAILY [facility] Stop: 05/13/18 08:59 Last Admin: 03/15/18 08:28 Dose: 5 mg Aripiprazole (Abilify) 2 mg PO DAILY [facility]; Protocol Stop: 05/13/18 08:59 Last Admin: 03/15/18 08:28 Dose: 2 mg Ascorbic Acid (Vitamin C) 500 mg PO DAILY [facility] Stop: 05/13/18 08:59 Last Admin: 03/15/18 08:30 Dose: 500 mg Atorvastatin Calcium (Lipitor) 10 mg PO HS [facility]; Protocol Stop: 05/13/18 20:59 Last Admin: 03/15/18 20:43 Dose: 10 mg Bisacodyl (Dulcolax 10 Mg Supp) 10 mg RC DAILY PRN PRN Reason: Constipation Stop: 05/12/18 22:35 Calcium/Vitamin D (Oscal W/Vitamin D) 1 tab PO BID [facility] Stop: 05/13/18 08:59 Last Admin: 03/15/18 17:40 Dose: 1 tab Docusate Sodium (Colace) 100 mg PO DAILY [facility] Stop: 05/13/18 08:59 Last Admin: 03/15/18 08:26 Dose: 100 mg Donepezil HCl (Aricept) 5 mg PO HS [facility] Stop: 05/13/18 20:59 Last Admin: 03/15/18 20:43 Dose: 5 mg Insulin Aspart (Novolog Insulin Sliding Scale) 0 units SUBQ ACHS [facility]; Protocol Stop: 05/14/18 11:29 Last Admin: 03/16/18 06:35 Dose: Not Given Lorazepam (Ativan) 0.5 mg PO Q4HR PRN; Protocol PRN Reason: Anxiety/agitation Stop: 04/12/18 21:59 Last Admin: 03/16/18 05:19 Dose: 0.5 mg Magnesium Hydroxide (Milk Of Magnesia) 30 ml PO HS PRN PRN Reason: Constipation Multivitamins/Vitamin C (Theragran) 1 tab PO DAILY [facility] Stop: 05/13/18 08:59 Last Admin: 03/15/18 08:26 Dose: 1 tab Pantoprazole Sodium (Protonix) 40 mg PO QDAC [facility] Stop: 05/13/18 07:29 Last Admin: 03/16/18 06:35 Dose: 40 mg Sertraline HCl (Zoloft) 50 mg PO DAILY [facility]; Protocol Stop: 05/13/18 08:59 Last Admin: 03/15/18 08:30 Dose: 50 mg Valsartan (Diovan) 80 mg PO BID [facility] Stop: 05/13/18 08:59 Last Admin: 03/15/18 17:40 Dose: 80 mg Zolpidem Tartrate (Ambien) 5 mg PO HS PRN PRN Reason: Insomnia Stop: 05/12/18 21:23 General: Alert, Oriented x3, No acute distress HEENT: Atraumatic, PERRLA, EOMI Neck: Supple, no JVD Cardiovascular: Normal S1, Normal S2 Lungs: Clear to auscultation Abdomen: Bowel sounds, Soft Extremities: no Clubbing, no Cyanosis, no Edema - Procedures Procedures: Procedures Procedure Code Date DRAINAGE OF L PLEURAL CAV WITH DRAIN DEV, PERC APPROACH [id number] 08/06/15 INSERTION OF CHEST TUBE 03955 08/06/15 Assessment/Plan - Assessment Assessment: Acute Psychosis HTN DM Hyperlipidemia Dementia - Plan Plan: Continue current treatment.
[2018-03-16] MEDS: Multivitamin Tab PO SCH (09:42)
[2018-03-16] MEDS: Calcium Carb/Vit D 500 mg/200 U Tab PO SCH ×2 (09:43→16:48)
[2018-03-16] MEDS: Atorvastatin Calcium 10 MG TAB PO SCH (20:56)
--- NOTE | 2018-03-17 05:19 | General Progress Note ---
Subjective - Review of Systems Service Date: 03/17/18 Subjective: Awake, alert but confused. VS T97.9 P78 BP 103/67 P20 Objective - Results Result Diagrams: 03/13/18 19:20 03/13/18 19:20 Recent Labs: Laboratory Last Values WBC 9.7 Th/cmm (4.8-10.8) 03/13/18 19:20 RBC 4.32 Mil/cmm (3.80-5.80) 03/13/18 19:20 Hgb 13.5 gm/dL (12-16) 03/13/18 19:20 Hct 40.0 % (41.0-60) L 03/13/18 19:20 MCV 92.5 fl (80-99) 03/13/18 19:20 MCH 31.3 pg (27.0-31.0) H 03/13/18 19:20 MCHC Differential 33.8 pg (28.0-36.0) 03/13/18 19:20 RDW 13.1 % (11.5-20.0) 03/13/18 19:20 Plt Count 232 Th/cmm (150-400) 03/13/18 19:20 MPV 7.5 fl 03/13/18 19:20 Neutrophils % 70.3 % (40.0-80.0) 03/13/18 19:20 Lymphocytes % 20.6 % (20.0-50.0) 03/13/18 19:20 Monocytes % 7.2 % (2.0-10.0) 03/13/18 19:20 Eosinophils % 1.0 % (0.0-5.0) 03/13/18 19:20 Basophils % 0.9 % (0.0-2.0) 03/13/18 19:20 ESR 15 mm/hr (0-20) 03/13/18 19:20 PT 9.3 SECONDS (9.5-11.5) L 03/13/18 19:20 INR 0.90 (0.5-1.4) 03/13/18 19:20 PTT (Actin FS) 24.8 SECONDS (26.0-38.0) L 03/13/18 19:20 Sodium 140 mEq/L (136-145) 03/13/18 19:20 Potassium 3.9 mEq/L (3.5-5.1) 03/13/18 19:20 Chloride 104 mEq/L (98-107) 03/13/18 19:20 Carbon Dioxide 31.0 mEq/L (21.0-31.0) 03/13/18 19:20 Anion Gap 8.9 (7.0-16.0) 03/13/18 19:20 BUN 25 mg/dL (7-25) 03/13/18 19:20 Creatinine 1.2 mg/dL (0.7-1.3) 03/13/18 19:20 Est GFR ( Amer) > 60.0 ml/min (>90) 03/13/18 19:20 Est GFR (Non-Af Amer) > 60.0 ml/min 03/13/18 19:20 BUN/Creatinine Ratio 20.8 03/13/18 19:20 Glucose 163 mg/dL (70-105) H 03/13/18 19:20 POC Glucose 235 MG/DL (70 - 105) H 03/16/18 19:55 Calcium 9.3 mg/dL (8.6-10.3) 03/13/18 19:20 Total Bilirubin 0.6 mg/dL (0.3-1.0) 03/13/18 19:20 AST 18 U/L (13-39) 03/13/18 19:20 ALT 26 U/L (7-52) 03/13/18 19:20 Alkaline Phosphatase 71 U/L (34-104) 03/13/18 19:20 Total Protein 6.9 gm/dL (6.0-8.3) 03/13/18 19:20 Albumin 4.0 gm/dL (4.2-5.5) L 03/13/18 19:20 Globulin 2.9 gm/dL 03/13/18 19:20 Albumin/Globulin Ratio 1.4 (1.0-1.8) 03/13/18 19:20 TSH 1.21 uIU/ml (0.34-5.60) 03/13/18 19:20 - Physical Exam Vitals and I&O: Vital Signs Temp 97.9 F 03/16/18 20:17 Pulse 78 03/16/18 20:17 Resp 20 03/16/18 20:17 BP 103/67 03/16/18 20:17 Pulse Ox 95 03/16/18 20:17 Intake & Output 03/16/18 03/16/18 03/17/18 06:59 18:59 06:59 Intake Total 750 250 120 Balance 750 250 120 Intake: Oral 750 250 120 Other: # Voids 2 3 # Bowel Movements 1 0 Active Medications: Current Medications Acetaminophen (Tylenol) 650 mg PO Q4HR PRN PRN Reason: Mild Pain / Temp above 100 Stop: 05/12/18 21:23 Al Hydrox/Mg Hydrox/Simethicone (Maalox) 30 ml PO Q4HR PRN PRN Reason: GI DISTRESS Stop: 05/12/18 21:23 Amlodipine Besylate (Norvasc) 5 mg PO DAILY [facility] Stop: 05/13/18 08:59 Last Admin: 03/16/18 09:44 Dose: 5 mg Aripiprazole (Abilify) 2 mg PO DAILY [facility]; Protocol Stop: 05/13/18 08:59 Last Admin: 03/16/18 09:44 Dose: 2 mg Ascorbic Acid (Vitamin C) 500 mg PO DAILY [facility] Stop: 05/13/18 08:59 Last Admin: 03/16/18 09:43 Dose: 500 mg Atorvastatin Calcium (Lipitor) 10 mg PO HS [facility]; Protocol Stop: 05/13/18 20:59 Last Admin: 03/16/18 20:56 Dose: 10 mg Bisacodyl (Dulcolax 10 Mg Supp) 10 mg RC DAILY PRN PRN Reason: Constipation Stop: 05/12/18 22:35 Calcium/Vitamin D (Oscal W/Vitamin D) 1 tab PO BID [facility] Stop: 05/13/18 08:59 Last Admin: 03/16/18 16:48 Dose: 1 tab Docusate Sodium (Colace) 100 mg PO DAILY [facility] Stop: 05/13/18 08:59 Last Admin: 03/16/18 09:43 Dose: 100 mg Donepezil HCl (Aricept) 5 mg PO HS [facility] Stop: 05/13/18 20:59 Last Admin: 03/16/18 20:56 Dose: 5 mg Insulin Aspart (Novolog Insulin Sliding Scale) 0 units SUBQ ACHS [facility]; Protocol Stop: 05/14/18 11:29 Last Admin: 03/16/18 21:20 Dose: 4 units Lorazepam (Ativan) 0.5 mg PO Q4HR PRN; Protocol PRN Reason: Anxiety/agitation Stop: 04/12/18 21:59 Last Admin: 03/16/18 05:19 Dose: 0.5 mg Magnesium Hydroxide (Milk Of Magnesia) 30 ml PO HS PRN PRN Reason: Constipation Multivitamins/Vitamin C (Theragran) 1 tab PO DAILY [facility] Stop: 05/13/18 08:59 Last Admin: 03/16/18 09:42 Dose: 1 tab Pantoprazole Sodium (Protonix) 40 mg PO QDAC [facility] Stop: 05/13/18 07:29 Last Admin: 03/16/18 06:35 Dose: 40 mg Sertraline HCl (Zoloft) 50 mg PO DAILY [facility]; Protocol Stop: 05/13/18 08:59 Last Admin: 03/16/18 09:42 Dose: 50 mg Valsartan (Diovan) 80 mg PO BID [facility] Stop: 05/13/18 08:59 Last Admin: 03/16/18 16:48 Dose: 80 mg Zolpidem Tartrate (Ambien) 5 mg PO HS PRN PRN Reason: Insomnia Stop: 05/12/18 21:23 General: Alert, Oriented x3, No acute distress HEENT: Atraumatic, PERRLA, EOMI Neck: Supple, no JVD Cardiovascular: Normal S1, Normal S2 Lungs: Clear to auscultation Abdomen: Bowel sounds, Soft Extremities: no Clubbing, no Cyanosis, no Edema - Procedures Procedures: Procedures Procedure Code Date DRAINAGE OF L PLEURAL CAV WITH DRAIN DEV, PERC APPROACH [id number] 08/06/15 INSERTION OF CHEST TUBE 26902 08/06/15 Assessment/Plan - Assessment Assessment: Acute Psychosis HTN DM Hyperlipidemia Dementia - Plan Plan: Continue current treatment. Nutritional Asmnt/Malnutr-PDOC - Dietary Evaluation Malnutrition Findings (Please click <Entered> for more info): Nutritional Asmnt/Malnutrition Start: 03/16/18 16: 36 Text: Status: Complete Freq: Protocol: Document 03/16/18 16:36 [email or web address] (Rec: 03/16/18 16:43 [email or web address]) Nutritional Asmnt/Malnutrition Patient General Information Nutritional Screening Moderate Risk Diagnosis psychosis Pertinent Medical Hx/Surgical Hx hyperlipidemia, TIA, DM, THN, psychosis Subjective Information Pt seen in dining room at time of visit. Per EMR< PO intake 75-100% of meals. Current Diet Order/ Nutrition Support [facility] osoft chopped Pertinent Medications vit C, oscal w vit D, colace, novolog, theragran, protonix Pertinent Labs 03/13 glucose 163 03/15-03/16 POC 139-216 Nutritional Hx/Data Height 1.7 m Height (Calculated Centimeters) 170.2 Current Weight (lbs) 78.925 kg Weight (Calculated Kilograms) 78.9 Weight (Calculated Grams) 82528.1 [place] Body Weight 148 Body Mass Index (BMI) 27.2 Weight Status Overweight GI Symptoms GI Symptoms None Last BM 03/16 Difficult in: None Skin Integrity/Comment: intact Current %PO Good (75-100%) Estimated Nutritional Goals BEE in Kcals: Using Current wt Calories/Kcals/Kg 23-27 Kcals Calculated 9566-0412 Protein: Using Current wt Protein g/k.8-1 Protein Calculated 63-79 Fluid: ml 1817-2133ml (1ml/kcal) Nutritional Problem 1. Problem Problem altered nutrition related labs Etiology hx of DM Signs/Symptoms: glucose 163, POC 139-216 Malnutrition Alert Is there a minimum of two criteria No selected? Query Text:Check all the applicable criteria. A minimum of two criteria are recommended for diagnosis of either severe or non-severe malnutrition. Malnutrition Related to Morbid Obesity Malnutrition related to morbid obesity No Intervention/Recommendation Comments 1. Continue with [facility] soft chopped diet as ordered. 2. Monitor PO intake, wt, labs and skin integrity 3. F/U as low risk in 7 days, 03/23 Expected Outcomes/Goals Expected Outcomes/Goals 1. PO intake to meet at least 75% of nutritional needs. 2. Wt stability, skin to remain intact, labs to approach WNL.
[2018-03-17] MEDS: Pantoprazole 40 mg EC Tab PO SCH (06:36)
[2018-03-17] MEDS: INSULIN ASPART SLIDING SCALE 100 UNITS/ML UNIT SUBQ SCH ×4 (06:36→21:22)
--- NOTE | 2018-03-17 06:55 | Progress Notes ---
DATE: 03/16/2018 PSYCHIATRIC PROGRESS NOTE SUBJECTIVE: Staff was spoken to. The patient is interviewed. Mood is noted to be irritable. Affect is constricted. Insight and judgment are noted to be still impaired. Impulse control is noted to be poor. The patient is getting easily agitated and the patient needs to be redirected. No side effects to the medications are noted at this time. The patient has been able to tolerate the medication. The patient is confused, the confusion is more apparent towards the end of the day. The patient is currently on the sertraline 50 mg in the morning and the patient is also placed on aripiprazole 2 mg in the morning to help with the psychosis and depression. ASSESSMENT: The patient is still depressed and paranoid. PLAN: To continue the patient with the supportive therapy and follow. [facility]# [id number]
[2018-03-17] MEDS: Multivitamin Tab PO SCH (09:05)
[2018-03-17] MEDS: Calcium Carb/Vit D 500 mg/200 U Tab PO SCH ×2 (09:08→17:14)
--- NOTE | 2018-03-17 13:15 | Consultation ---
DATE OF CONSULTATION: 03/16/2018 REQUESTING PHYSICIAN: Aleja Starr MD TYPE OF CONSULTATION: Psychology. HISTORY OF PRESENT ILLNESS: The patient is a 67-year-old male. The patient is a resident of [facility]. The patient is known to this engineering technical writer from a previous hospitalization. The following is by review of the medical record and by the patient's self-report. The patient is being admitted due to aggressive behavior towards staff members at his half-way facility. The staff at the patient's facility report that he had been screaming and yelling and aggressive towards the staff and generally unredirectable. The patient denied any suicidal ideation, plan or intention. The patient seems to be selectively mute at times and not giving much information. PAST MEDICAL HISTORY: Please see history and physical by Dr. Marie. PAST PSYCHIATRIC HISTORY: Please see previous hospital records. The patient is under the care of a psychiatrist as well as a psychologist at his half-way facility. The patient has had 1 previous hospitalization here at [facility] on geropsychiatric unit in January of this year. SUBSTANCE ABUSE HISTORY: The patient denied any history. PSYCHOSOCIAL HISTORY: The patient did not answer questions about occupational or educational history or baptist affiliation. The patient did not answer questions about history of physical or sexual abuse or any legal issues. The patient did not answer questions about family relationships or involvement. The patient expects to return to his placement. MENTAL STATUS EXAMINATION: The patient appears to be his stated age. The patient's attitude is superficially cooperative. Eye contact is poor. Speech is brief and minimal as well as loud at times. Mood is irritable. Affect is constricted. Thought process shows to be confused. The patient denied any auditory or visual hallucinations. There is evidence of some paranoid ideation. The patient denied any suicidal ideation or homicidal ideation, plan or intention. Impulse control is poor. Concentration is poor. The patient's behavior on the unit has been difficult to redirect. The patient did not participate in the memory assessment. Sensorium is alert and oriented to self and place only. The patient did not participate in the interpretation of proverbs. Insight is poor. Judgment is impaired. DIAGNOSTIC IMPRESSION: AXIS I: Major depressive disorder, recurrent with psychotic symptoms. AXIS II: Deferred. AXIS III: Per Dr. Marie. TREATMENT PLAN: The patient has been seen by Dr. Starr for psychiatric evaluation and for the management of the patient's psychotropic medications. We will provide supportive psychotherapy to include de-escalation and limit setting. We will provide motivational enhancement for the patient to become compliant and stay compliant with all aspects of his care and treatment. We will encourage the patient to follow through with staff direction and to be able to demonstrate emotional and self-regulation. We will encourage the patient to verbalize his concerns versus anger outbursts and aggressively acting out. We will provide reality integration. We will provide coping strategies for phase of life issues as well as chronic mental illness. Thank you, Dr. Starr, for this consult and the opportunity to participate in this patient's care. [facility]# [id number] ESTEBAN
--- NOTE | 2018-03-17 17:38 | Progress Notes ---
DATE: 03/17/2018 SUBJECTIVE: The patient has been having difficult time to cope with the stress at this time. The patient is very paranoid, isolative and withdrawn, but the aggressive behavior is not noted today. ASSESSMENT: The patient is still confused. PLAN: I encouraged the patient to verbalize the concerns and followup. [facility]# [id number]
[2018-03-17] MEDS: Atorvastatin Calcium 10 MG TAB PO SCH (21:22)
[2018-03-18] MEDS: INSULIN ASPART SLIDING SCALE 100 UNITS/ML UNIT SUBQ SCH ×4 (06:49→21:08)
[2018-03-18] MEDS: Pantoprazole 40 mg EC Tab PO SCH (06:49)
--- NOTE | 2018-03-18 07:38 | General Progress Note ---
Subjective - Review of Systems Service Date: 03/18/18 Subjective: Awake, alert but confused. VS T97.4 P 64 BP 100/60 P 19 Objective - Results Result Diagrams: 03/13/18 19:20 03/13/18 19:20 Recent Labs: Laboratory Last Values WBC 9.7 Th/cmm (4.8-10.8) 03/13/18 19:20 RBC 4.32 Mil/cmm (3.80-5.80) 03/13/18 19:20 Hgb 13.5 gm/dL (12-16) 03/13/18 19:20 Hct 40.0 % (41.0-60) L 03/13/18 19:20 MCV 92.5 fl (80-99) 03/13/18 19:20 MCH 31.3 pg (27.0-31.0) H 03/13/18 19:20 MCHC Differential 33.8 pg (28.0-36.0) 03/13/18 19:20 RDW 13.1 % (11.5-20.0) 03/13/18 19:20 Plt Count 232 Th/cmm (150-400) 03/13/18 19:20 MPV 7.5 fl 03/13/18 19:20 Neutrophils % 70.3 % (40.0-80.0) 03/13/18 19:20 Lymphocytes % 20.6 % (20.0-50.0) 03/13/18 19:20 Monocytes % 7.2 % (2.0-10.0) 03/13/18 19:20 Eosinophils % 1.0 % (0.0-5.0) 03/13/18 19:20 Basophils % 0.9 % (0.0-2.0) 03/13/18 19:20 ESR 15 mm/hr (0-20) 03/13/18 19:20 PT 9.3 SECONDS (9.5-11.5) L 03/13/18 19:20 INR 0.90 (0.5-1.4) 03/13/18 19:20 PTT (Actin FS) 24.8 SECONDS (26.0-38.0) L 03/13/18 19:20 Sodium 140 mEq/L (136-145) 03/13/18 19:20 Potassium 3.9 mEq/L (3.5-5.1) 03/13/18 19:20 Chloride 104 mEq/L (98-107) 03/13/18 19:20 Carbon Dioxide 31.0 mEq/L (21.0-31.0) 03/13/18 19:20 Anion Gap 8.9 (7.0-16.0) 03/13/18 19:20 BUN 25 mg/dL (7-25) 03/13/18 19:20 Creatinine 1.2 mg/dL (0.7-1.3) 03/13/18 19:20 Est GFR ( Amer) > 60.0 ml/min (>90) 03/13/18 19:20 Est GFR (Non-Af Amer) > 60.0 ml/min 03/13/18 19:20 BUN/Creatinine Ratio 20.8 03/13/18 19:20 Glucose 163 mg/dL (70-105) H 03/13/18 19:20 POC Glucose 153 MG/DL (70 - 105) H 03/18/18 06:22 Calcium 9.3 mg/dL (8.6-10.3) 03/13/18 19:20 Total Bilirubin 0.6 mg/dL (0.3-1.0) 03/13/18 19:20 AST 18 U/L (13-39) 03/13/18 19:20 ALT 26 U/L (7-52) 03/13/18 19:20 Alkaline Phosphatase 71 U/L (34-104) 03/13/18 19:20 Total Protein 6.9 gm/dL (6.0-8.3) 03/13/18 19:20 Albumin 4.0 gm/dL (4.2-5.5) L 03/13/18 19:20 Globulin 2.9 gm/dL 03/13/18 19:20 Albumin/Globulin Ratio 1.4 (1.0-1.8) 03/13/18 19:20 TSH 1.21 uIU/ml (0.34-5.60) 03/13/18 19:20 - Physical Exam Vitals and I&O: Vital Signs Temp 97.4 F 03/18/18 06:52 Pulse 64 03/18/18 06:52 Resp 19 03/18/18 06:52 BP 100/60 03/18/18 06:52 Pulse Ox 97 03/18/18 06:52 Active Medications: Current Medications Acetaminophen (Tylenol) 650 mg PO Q4HR PRN PRN Reason: Mild Pain / Temp above 100 Stop: 05/12/18 21:23 Al Hydrox/Mg Hydrox/Simethicone (Maalox) 30 ml PO Q4HR PRN PRN Reason: GI DISTRESS Stop: 05/12/18 21:23 Amlodipine Besylate (Norvasc) 5 mg PO DAILY [facility] Stop: 05/13/18 08:59 Last Admin: 03/17/18 09:06 Dose: 5 mg Aripiprazole (Abilify) 2 mg PO DAILY BRE; Protocol Stop: 05/13/18 08:59 Last Admin: 03/17/18 09:07 Dose: 2 mg Ascorbic Acid (Vitamin C) 500 mg PO DAILY [facility] Stop: 05/13/18 08:59 Last Admin: 03/17/18 09:06 Dose: 500 mg Atorvastatin Calcium (Lipitor) 10 mg PO HS [facility]; Protocol Stop: 05/13/18 20:59 Last Admin: 03/17/18 21:22 Dose: 10 mg Bisacodyl (Dulcolax 10 Mg Supp) 10 mg RC DAILY PRN PRN Reason: Constipation Stop: 05/12/18 22:35 Calcium/Vitamin D (Oscal W/Vitamin D) 1 tab PO BID [facility] Stop: 05/13/18 08:59 Last Admin: 03/17/18 17:14 Dose: 1 tab Docusate Sodium (Colace) 100 mg PO DAILY BRE Stop: 05/13/18 08:59 Last Admin: 03/17/18 09:08 Dose: Not Given Donepezil HCl (Aricept) 5 mg PO HS [facility] Stop: 05/13/18 20:59 Last Admin: 03/17/18 21:22 Dose: 5 mg Insulin Aspart (Novolog Insulin Sliding Scale) 0 units SUBQ ACHS BRE; Protocol Stop: 05/14/18 11:29 Last Admin: 03/18/18 06:49 Dose: 2 units Lorazepam (Ativan) 0.5 mg PO Q4HR PRN; Protocol PRN Reason: Anxiety/agitation Stop: 04/12/18 21:59 Last Admin: 03/16/18 05:19 Dose: 0.5 mg Magnesium Hydroxide (Milk Of Magnesia) 30 ml PO HS PRN PRN Reason: Constipation Multivitamins/Vitamin C (Theragran) 1 tab PO DAILY [facility] Stop: 05/13/18 08:59 Last Admin: 03/17/18 09:05 Dose: 1 tab Pantoprazole Sodium (Protonix) 40 mg PO QDAC [facility] Stop: 05/13/18 07:29 Last Admin: 03/18/18 06:49 Dose: 40 mg Sertraline HCl (Zoloft) 50 mg PO DAILY [facility]; Protocol Stop: 05/13/18 08:59 Last Admin: 03/17/18 09:06 Dose: 50 mg Valsartan (Diovan) 80 mg PO BID [facility] Stop: 05/13/18 08:59 Last Admin: 03/17/18 17:14 Dose: 80 mg Zolpidem Tartrate (Ambien) 5 mg PO HS PRN PRN Reason: Insomnia Stop: 05/12/18 21:23 General: Alert, Oriented x3, No acute distress HEENT: Atraumatic, PERRLA, EOMI Neck: Supple, no JVD Cardiovascular: Normal S1, Normal S2 Lungs: Clear to auscultation Abdomen: Bowel sounds, Soft Extremities: no Clubbing, no Cyanosis, no Edema - Procedures Procedures: Procedures Procedure Code Date DRAINAGE OF L PLEURAL CAV WITH DRAIN DEV, PERC APPROACH [id number] 08/06/15 INSERTION OF CHEST TUBE 19303 08/06/15 Assessment/Plan - Assessment Assessment: Acute Psychosis HTN DM Hyperlipidemia Dementia - Plan Plan: Continue current treatment. Nutritional Asmnt/Malnutr-PDOC - Dietary Evaluation Malnutrition Findings (Please click <Entered> for more info): Nutritional Asmnt/Malnutrition Start: 03/16/18 16: 36 Text: Status: Complete Freq: Protocol: Document 03/16/18 16:36 LCHENG (Rec: 03/16/18 16:43 LCHENG [email or web address]) Nutritional Asmnt/Malnutrition Patient General Information Nutritional Screening Moderate Risk Diagnosis psychosis Pertinent Medical Hx/Surgical Hx hyperlipidemia, TIA, DM, THN, psychosis Subjective Information Pt seen in dining room at time of visit. Per EMR< PO intake 75-100% of meals. Current Diet Order/ Nutrition Support [facility] osoft chopped Pertinent Medications vit C, oscal w vit D, colace, novolog, theragran, protonix Pertinent Labs 03/13 glucose 163 03/15-03/16 POC 139-216 Nutritional Hx/Data Height 1.7 m Height (Calculated Centimeters) 170.2 Current Weight (lbs) 78.925 kg Weight (Calculated Kilograms) 78.9 Weight (Calculated Grams) 70528.1 [place] Body Weight 148 Body Mass Index (BMI) 27.2 Weight Status Overweight GI Symptoms GI Symptoms None Last BM 03/16 Difficult in: None Skin Integrity/Comment: intact Current %PO Good (75-100%) Estimated Nutritional Goals BEE in Kcals: Using Current wt Calories/Kcals/Kg 23-27 Kcals Calculated 9817-1085 Protein: Using Current wt Protein g/k.8-1 Protein Calculated 63-79 Fluid: ml 1817-2133ml (1ml/kcal) Nutritional Problem 1. Problem Problem altered nutrition related labs Etiology hx of DM Signs/Symptoms: glucose 163, POC 139-216 Malnutrition Alert Is there a minimum of two criteria No selected? Query Text:Check all the applicable criteria. A minimum of two criteria are recommended for diagnosis of either severe or non-severe malnutrition. Malnutrition Related to Morbid Obesity Malnutrition related to morbid obesity No Intervention/Recommendation Comments 1. Continue with [facility] soft chopped diet as ordered. 2. Monitor PO intake, wt, labs and skin integrity 3. F/U as low risk in 7 days, 03/23 Expected Outcomes/Goals Expected Outcomes/Goals 1. PO intake to meet at least 75% of nutritional needs. 2. Wt stability, skin to remain intact, labs to approach WNL.
[2018-03-18] MEDS: Multivitamin Tab PO SCH (09:22)
[2018-03-18] MEDS: Calcium Carb/Vit D 500 mg/200 U Tab PO SCH ×2 (09:22→16:21)
[2018-03-18] MEDS: Atorvastatin Calcium 10 MG TAB PO SCH (20:50)
--- NOTE | 2018-03-18 22:14 | Progress Notes ---
DATE: 03/18/2018 SUBJECTIVE: Staff was spoken to. The patient is interviewed. Mood is noted to be irritable. Affect is constricted. The patient has been getting easily confused. The patient is about to lose the temper and has to be redirected by the staff members. Coping skills at this time are noted to be very poor. No side effects to the medications. ASSESSMENT: The patient is still depressed, psychotic. PLAN: Continue the patient with the current medications. Encouraged the patient to verbalize the concerns rather than to act out. JOB# [id number]
[2018-03-19] MEDS: INSULIN ASPART SLIDING SCALE 100 UNITS/ML UNIT SUBQ SCH ×3 (06:40→21:36)
[2018-03-19] MEDS: Pantoprazole 40 mg EC Tab PO SCH (06:47)
--- NOTE | 2018-03-19 07:02 | General Progress Note ---
Subjective - Review of Systems Service Date: 03/19/18 Subjective: Awake, alert but confused. VS T97.0 P 60 BP 146/89 P 18 Objective - Results Result Diagrams: 03/13/18 19:20 03/13/18 19:20 Recent Labs: Laboratory Last Values WBC 9.7 Th/cmm (4.8-10.8) 03/13/18 19:20 RBC 4.32 Mil/cmm (3.80-5.80) 03/13/18 19:20 Hgb 13.5 gm/dL (12-16) 03/13/18 19:20 Hct 40.0 % (41.0-60) L 03/13/18 19:20 MCV 92.5 fl (80-99) 03/13/18 19:20 MCH 31.3 pg (27.0-31.0) H 03/13/18 19:20 MCHC Differential 33.8 pg (28.0-36.0) 03/13/18 19:20 RDW 13.1 % (11.5-20.0) 03/13/18 19:20 Plt Count 232 Th/cmm (150-400) 03/13/18 19:20 MPV 7.5 fl 03/13/18 19:20 Neutrophils % 70.3 % (40.0-80.0) 03/13/18 19:20 Lymphocytes % 20.6 % (20.0-50.0) 03/13/18 19:20 Monocytes % 7.2 % (2.0-10.0) 03/13/18 19:20 Eosinophils % 1.0 % (0.0-5.0) 03/13/18 19:20 Basophils % 0.9 % (0.0-2.0) 03/13/18 19:20 ESR 15 mm/hr (0-20) 03/13/18 19:20 PT 9.3 SECONDS (9.5-11.5) L 03/13/18 19:20 INR 0.90 (0.5-1.4) 03/13/18 19:20 PTT (Actin FS) 24.8 SECONDS (26.0-38.0) L 03/13/18 19:20 Sodium 140 mEq/L (136-145) 03/13/18 19:20 Potassium 3.9 mEq/L (3.5-5.1) 03/13/18 19:20 Chloride 104 mEq/L (98-107) 03/13/18 19:20 Carbon Dioxide 31.0 mEq/L (21.0-31.0) 03/13/18 19:20 Anion Gap 8.9 (7.0-16.0) 03/13/18 19:20 BUN 25 mg/dL (7-25) 03/13/18 19:20 Creatinine 1.2 mg/dL (0.7-1.3) 03/13/18 19:20 Est GFR ( Amer) > 60.0 ml/min (>90) 03/13/18 19:20 Est GFR (Non-Af Amer) > 60.0 ml/min 03/13/18 19:20 BUN/Creatinine Ratio 20.8 03/13/18 19:20 Glucose 163 mg/dL (70-105) H 03/13/18 19:20 POC Glucose 132 MG/DL (70 - 105) H 03/19/18 06:28 Calcium 9.3 mg/dL (8.6-10.3) 03/13/18 19:20 Total Bilirubin 0.6 mg/dL (0.3-1.0) 03/13/18 19:20 AST 18 U/L (13-39) 03/13/18 19:20 ALT 26 U/L (7-52) 03/13/18 19:20 Alkaline Phosphatase 71 U/L (34-104) 03/13/18 19:20 Total Protein 6.9 gm/dL (6.0-8.3) 03/13/18 19:20 Albumin 4.0 gm/dL (4.2-5.5) L 03/13/18 19:20 Globulin 2.9 gm/dL 03/13/18 19:20 Albumin/Globulin Ratio 1.4 (1.0-1.8) 03/13/18 19:20 TSH 1.21 uIU/ml (0.34-5.60) 03/13/18 19:20 - Physical Exam Vitals and I&O: Vital Signs Temp 97.0 F 03/19/18 06:16 Pulse 60 03/19/18 06:16 Resp 18 03/19/18 06:16 BP 146/89 03/19/18 06:16 Pulse Ox 99 03/19/18 06:16 Intake & Output 03/18/18 03/19/18 03/19/18 18:59 06:59 18:59 Intake Total 0 Balance 0 Intake: Oral 0 Other: # Voids 2 Active Medications: Current Medications Acetaminophen (Tylenol) 650 mg PO Q4HR PRN PRN Reason: Mild Pain / Temp above 100 Stop: 05/12/18 21:23 Al Hydrox/Mg Hydrox/Simethicone (Maalox) 30 ml PO Q4HR PRN PRN Reason: GI DISTRESS Stop: 05/12/18 21:23 Amlodipine Besylate (Norvasc) 5 mg PO DAILY [facility] Stop: 05/13/18 08:59 Last Admin: 03/18/18 09:23 Dose: Not Given Aripiprazole (Abilify) 2 mg PO DAILY BRE; Protocol Stop: 05/13/18 08:59 Last Admin: 03/18/18 09:22 Dose: 2 mg Ascorbic Acid (Vitamin C) 500 mg PO DAILY BRE Stop: 05/13/18 08:59 Last Admin: 03/18/18 09:20 Dose: 500 mg Atorvastatin Calcium (Lipitor) 10 mg PO HS BRE; Protocol Stop: 05/13/18 20:59 Last Admin: 03/18/18 20:50 Dose: 10 mg Bisacodyl (Dulcolax 10 Mg Supp) 10 mg RC DAILY PRN PRN Reason: Constipation Stop: 05/12/18 22:35 Calcium/Vitamin D (Oscal W/Vitamin D) 1 tab PO BID BRE Stop: 05/13/18 08:59 Last Admin: 03/18/18 16:21 Dose: 1 tab Docusate Sodium (Colace) 100 mg PO DAILY BRE Stop: 05/13/18 08:59 Last Admin: 03/18/18 09:20 Dose: 100 mg Donepezil HCl (Aricept) 5 mg PO HS [facility] Stop: 05/13/18 20:59 Last Admin: 03/18/18 20:50 Dose: 5 mg Insulin Aspart (Novolog Insulin Sliding Scale) 0 units SUBQ ACHS BRE; Protocol Stop: 05/14/18 11:29 Last Admin: 03/19/18 06:40 Dose: Not Given Lorazepam (Ativan) 0.5 mg PO Q4HR PRN; Protocol PRN Reason: Anxiety/agitation Stop: 04/12/18 21:59 Last Admin: 03/18/18 20:51 Dose: 0.5 mg Magnesium Hydroxide (Milk Of Magnesia) 30 ml PO HS PRN PRN Reason: Constipation Multivitamins/Vitamin C (Theragran) 1 tab PO DAILY BRE Stop: 05/13/18 08:59 Last Admin: 03/18/18 09:22 Dose: 1 tab Pantoprazole Sodium (Protonix) 40 mg PO QDAC BRE Stop: 05/13/18 07:29 Last Admin: 03/19/18 06:47 Dose: 40 mg Sertraline HCl (Zoloft) 50 mg PO DAILY BRE; Protocol Stop: 05/13/18 08:59 Last Admin: 03/18/18 09:22 Dose: 50 mg Valsartan (Diovan) 80 mg PO BID BRE Stop: 05/13/18 08:59 Last Admin: 03/18/18 16:21 Dose: 80 mg Zolpidem Tartrate (Ambien) 5 mg PO HS PRN PRN Reason: Insomnia Stop: 05/12/18 21:23 General: Alert, Oriented x3, No acute distress HEENT: Atraumatic, PERRLA, EOMI Neck: Supple, no JVD Cardiovascular: Normal S1, Normal S2 Lungs: Clear to auscultation Abdomen: Bowel sounds, Soft Extremities: no Clubbing, no Cyanosis, no Edema - Procedures Procedures: Procedures Procedure Code Date DRAINAGE OF L PLEURAL CAV WITH DRAIN DEV, PERC APPROACH [id number] 08/06/15 INSERTION OF CHEST TUBE 35976 08/06/15 Assessment/Plan - Assessment Assessment: Acute Psychosis HTN DM Hyperlipidemia Dementia - Plan Plan: Continue current treatment. Nutritional Asmnt/Malnutr-PDOC - Dietary Evaluation Malnutrition Findings (Please click <Entered> for more info): Nutritional Asmnt/Malnutrition Start: 03/16/18 16: 36 Text: Status: Complete Freq: Protocol: Document 03/16/18 16:36 [email or web address] (Rec: 03/16/18 16:43 [email or web address]) Nutritional Asmnt/Malnutrition Patient General Information Nutritional Screening Moderate Risk Diagnosis psychosis Pertinent Medical Hx/Surgical Hx hyperlipidemia, TIA, DM, THN, psychosis Subjective Information Pt seen in dining room at time of visit. Per EMR< PO intake 75-100% of meals. Current Diet Order/ Nutrition Support [facility] osoft chopped Pertinent Medications vit C, oscal w vit D, colace, novolog, theragran, protonix Pertinent Labs 03/13 glucose 163 03/15-03/16 POC 139-216 Nutritional Hx/Data Height 1.7 m Height (Calculated Centimeters) 170.2 Current Weight (lbs) 78.925 kg Weight (Calculated Kilograms) 78.9 Weight (Calculated Grams) 01401.1 [place] Body Weight 148 Body Mass Index (BMI) 27.2 Weight Status Overweight GI Symptoms GI Symptoms None Last BM 03/16 Difficult in: None Skin Integrity/Comment: intact Current %PO Good (75-100%) Estimated Nutritional Goals BEE in Kcals: Using Current wt Calories/Kcals/Kg 23-27 Kcals Calculated 3713-1876 Protein: Using Current wt Protein g/k.8-1 Protein Calculated 63-79 Fluid: ml 1817-2133ml (1ml/kcal) Nutritional Problem 1. Problem Problem altered nutrition related labs Etiology hx of DM Signs/Symptoms: glucose 163, POC 139-216 Malnutrition Alert Is there a minimum of two criteria No selected? Query Text:Check all the applicable criteria. A minimum of two criteria are recommended for diagnosis of either severe or non-severe malnutrition. Malnutrition Related to Morbid Obesity Malnutrition related to morbid obesity No Intervention/Recommendation Comments 1. Continue with [facility] soft chopped diet as ordered. 2. Monitor PO intake, wt, labs and skin integrity 3. F/U as low risk in 7 days, 03/23 Expected Outcomes/Goals Expected Outcomes/Goals 1. PO intake to meet at least 75% of nutritional needs. 2. Wt stability, skin to remain intact, labs to approach WNL.
[2018-03-19] MEDS: Multivitamin Tab PO SCH (09:59)
[2018-03-19] MEDS: Calcium Carb/Vit D 500 mg/200 U Tab PO SCH ×2 (09:59→17:00)
[2018-03-19] MEDS: Atorvastatin Calcium 10 MG TAB PO SCH (21:18)
--- NOTE | 2018-03-20 01:38 | Progress Notes ---
DATE: 03/19/2018 SUBJECTIVE: Staff was spoken to. The patient is interviewed. Mood is noted to be irritable. Affect is constricted. Continues to be very paranoid, isolative and withdrawn. The patient's insight and judgment are very much impaired. Impulse control seems to be limited. No side effects to the medications are noted. ASSESSMENT: The patient is still impulsive and psychotic and demented. PLAN: To continue the patient with the supportive therapy, I encouraged the patient to verbalize the concerns rather than to act out. JOB# [id number]
--- NOTE | 2018-03-20 06:08 | General Progress Note ---
Subjective - Review of Systems Service Date: 03/20/18 Subjective: Awake, alert but confused. VS T97.1 P 62 BP 146/77 P 18 Objective - Results Result Diagrams: 03/13/18 19:20 03/13/18 19:20 Recent Labs: Laboratory Last Values WBC 9.7 Th/cmm (4.8-10.8) 03/13/18 19:20 RBC 4.32 Mil/cmm (3.80-5.80) 03/13/18 19:20 Hgb 13.5 gm/dL (12-16) 03/13/18 19:20 Hct 40.0 % (41.0-60) L 03/13/18 19:20 MCV 92.5 fl (80-99) 03/13/18 19:20 MCH 31.3 pg (27.0-31.0) H 03/13/18 19:20 MCHC Differential 33.8 pg (28.0-36.0) 03/13/18 19:20 RDW 13.1 % (11.5-20.0) 03/13/18 19:20 Plt Count 232 Th/cmm (150-400) 03/13/18 19:20 MPV 7.5 fl 03/13/18 19:20 Neutrophils % 70.3 % (40.0-80.0) 03/13/18 19:20 Lymphocytes % 20.6 % (20.0-50.0) 03/13/18 19:20 Monocytes % 7.2 % (2.0-10.0) 03/13/18 19:20 Eosinophils % 1.0 % (0.0-5.0) 03/13/18 19:20 Basophils % 0.9 % (0.0-2.0) 03/13/18 19:20 ESR 15 mm/hr (0-20) 03/13/18 19:20 PT 9.3 SECONDS (9.5-11.5) L 03/13/18 19:20 INR 0.90 (0.5-1.4) 03/13/18 19:20 PTT (Actin FS) 24.8 SECONDS (26.0-38.0) L 03/13/18 19:20 Sodium 140 mEq/L (136-145) 03/13/18 19:20 Potassium 3.9 mEq/L (3.5-5.1) 03/13/18 19:20 Chloride 104 mEq/L (98-107) 03/13/18 19:20 Carbon Dioxide 31.0 mEq/L (21.0-31.0) 03/13/18 19:20 Anion Gap 8.9 (7.0-16.0) 03/13/18 19:20 BUN 25 mg/dL (7-25) 03/13/18 19:20 Creatinine 1.2 mg/dL (0.7-1.3) 03/13/18 19:20 Est GFR ( Amer) > 60.0 ml/min (>90) 03/13/18 19:20 Est GFR (Non-Af Amer) > 60.0 ml/min 03/13/18 19:20 BUN/Creatinine Ratio 20.8 03/13/18 19:20 Glucose 163 mg/dL (70-105) H 03/13/18 19:20 POC Glucose 239 MG/DL (70 - 105) H 03/19/18 21:14 Calcium 9.3 mg/dL (8.6-10.3) 03/13/18 19:20 Total Bilirubin 0.6 mg/dL (0.3-1.0) 03/13/18 19:20 AST 18 U/L (13-39) 03/13/18 19:20 ALT 26 U/L (7-52) 03/13/18 19:20 Alkaline Phosphatase 71 U/L (34-104) 03/13/18 19:20 Total Protein 6.9 gm/dL (6.0-8.3) 03/13/18 19:20 Albumin 4.0 gm/dL (4.2-5.5) L 03/13/18 19:20 Globulin 2.9 gm/dL 03/13/18 19:20 Albumin/Globulin Ratio 1.4 (1.0-1.8) 03/13/18 19:20 TSH 1.21 uIU/ml (0.34-5.60) 03/13/18 19:20 - Physical Exam Vitals and I&O: Vital Signs Temp 97.1 F 03/20/18 06:04 Pulse 62 03/20/18 06:04 Resp 18 03/20/18 06:04 BP 149/77 03/20/18 06:04 Pulse Ox 100 03/20/18 06:04 Intake & Output 03/19/18 03/19/18 03/20/18 06:59 18:59 06:59 Intake Total 0 240 Balance 0 240 Intake: Oral 0 240 Other: # Voids 2 2 Active Medications: Current Medications Acetaminophen (Tylenol) 650 mg PO Q4HR PRN PRN Reason: Mild Pain / Temp above 100 Stop: 05/12/18 21:23 Al Hydrox/Mg Hydrox/Simethicone (Maalox) 30 ml PO Q4HR PRN PRN Reason: GI DISTRESS Stop: 05/12/18 21:23 Amlodipine Besylate (Norvasc) 5 mg PO DAILY [facility] Stop: 05/13/18 08:59 Last Admin: 03/19/18 09:58 Dose: 5 mg Aripiprazole (Abilify) 2 mg PO DAILY [facility]; Protocol Stop: 05/13/18 08:59 Last Admin: 03/19/18 09:59 Dose: 2 mg Ascorbic Acid (Vitamin C) 500 mg PO DAILY [facility] Stop: 05/13/18 08:59 Last Admin: 03/19/18 09:59 Dose: 500 mg Atorvastatin Calcium (Lipitor) 10 mg PO HS [facility]; Protocol Stop: 05/13/18 20:59 Last Admin: 03/19/18 21:18 Dose: 10 mg Bisacodyl (Dulcolax 10 Mg Supp) 10 mg RC DAILY PRN PRN Reason: Constipation Stop: 05/12/18 22:35 Calcium/Vitamin D (Oscal W/Vitamin D) 1 tab PO BID [facility] Stop: 05/13/18 08:59 Last Admin: 03/19/18 17:00 Dose: Not Given Docusate Sodium (Colace) 100 mg PO DAILY [facility] Stop: 05/13/18 08:59 Last Admin: 03/19/18 09:59 Dose: 100 mg Donepezil HCl (Aricept) 5 mg PO HS [facility] Stop: 05/13/18 20:59 Last Admin: 03/19/18 21:18 Dose: 5 mg Insulin Aspart (Novolog Insulin Sliding Scale) 0 units SUBQ ACHS BRE; Protocol Stop: 05/14/18 11:29 Last Admin: 03/19/18 21:36 Dose: 4 units Lorazepam (Ativan) 0.5 mg PO Q4HR PRN; Protocol PRN Reason: Anxiety/agitation Stop: 04/12/18 21:59 Last Admin: 03/18/18 20:51 Dose: 0.5 mg Magnesium Hydroxide (Milk Of Magnesia) 30 ml PO HS PRN PRN Reason: Constipation Multivitamins/Vitamin C (Theragran) 1 tab PO DAILY [facility] Stop: 05/13/18 08:59 Last Admin: 03/19/18 09:59 Dose: 1 tab Pantoprazole Sodium (Protonix) 40 mg PO QDAC [facility] Stop: 05/13/18 07:29 Last Admin: 03/19/18 06:47 Dose: 40 mg Sertraline HCl (Zoloft) 50 mg PO DAILY BRE; Protocol Stop: 05/13/18 08:59 Last Admin: 03/19/18 09:59 Dose: 50 mg Valsartan (Diovan) 80 mg PO BID [facility] Stop: 05/13/18 08:59 Last Admin: 03/19/18 17:00 Dose: Not Given Zolpidem Tartrate (Ambien) 5 mg PO HS PRN PRN Reason: Insomnia Stop: 05/12/18 21:23 Last Admin: 03/19/18 21:18 Dose: 5 mg General: Alert, Oriented x3, No acute distress HEENT: Atraumatic, PERRLA, EOMI Neck: Supple, no JVD Cardiovascular: Normal S1, Normal S2 Lungs: Clear to auscultation Abdomen: Bowel sounds, Soft Extremities: no Clubbing, no Cyanosis, no Edema - Procedures Procedures: Procedures Procedure Code Date DRAINAGE OF L PLEURAL CAV WITH DRAIN DEV, PERC APPROACH [id number] 08/06/15 INSERTION OF CHEST TUBE 18981 08/06/15 Assessment/Plan - Assessment Assessment: Acute Psychosis HTN DM Hyperlipidemia Dementia - Plan Plan: Continue current treatment. Nutritional Asmnt/Malnutr-PDOC - Dietary Evaluation Malnutrition Findings (Please click <Entered> for more info): Nutritional Asmnt/Malnutrition Start: 03/16/18 16: 36 Text: Status: Complete Freq: Protocol: Document 03/16/18 16:36 SARAG (Rec: 03/16/18 16:43 [email or web address]) Nutritional Asmnt/Malnutrition Patient General Information Nutritional Screening Moderate Risk Diagnosis psychosis Pertinent Medical Hx/Surgical Hx hyperlipidemia, TIA, DM, THN, psychosis Subjective Information Pt seen in dining room at time of visit. Per EMR< PO intake 75-100% of meals. Current Diet Order/ Nutrition Support [facility] osoft chopped Pertinent Medications vit C, oscal w vit D, colace, novolog, theragran, protonix Pertinent Labs 03/13 glucose 163 03/15-03/16 POC 139-216 Nutritional Hx/Data Height 1.7 m Height (Calculated Centimeters) 170.2 Current Weight (lbs) 78.925 kg Weight (Calculated Kilograms) 78.9 Weight (Calculated Grams) 50790.1 [place] Body Weight 148 Body Mass Index (BMI) 27.2 Weight Status Overweight GI Symptoms GI Symptoms None Last BM 03/16 Difficult in: None Skin Integrity/Comment: intact Current %PO Good (75-100%) Estimated Nutritional Goals BEE in Kcals: Using Current wt Calories/Kcals/Kg 23-27 Kcals Calculated 6099-8482 Protein: Using Current wt Protein g/k.8-1 Protein Calculated 63-79 Fluid: ml 1817-2133ml (1ml/kcal) Nutritional Problem 1. Problem Problem altered nutrition related labs Etiology hx of DM Signs/Symptoms: glucose 163, POC 139-216 Malnutrition Alert Is there a minimum of two criteria No selected? Query Text:Check all the applicable criteria. A minimum of two criteria are recommended for diagnosis of either severe or non-severe malnutrition. Malnutrition Related to Morbid Obesity Malnutrition related to morbid obesity No Intervention/Recommendation Comments 1. Continue with [facility] soft chopped diet as ordered. 2. Monitor PO intake, wt, labs and skin integrity 3. F/U as low risk in 7 days, 03/23 Expected Outcomes/Goals Expected Outcomes/Goals 1. PO intake to meet at least 75% of nutritional needs. 2. Wt stability, skin to remain intact, labs to approach WNL.
[2018-03-20] MEDS: INSULIN ASPART SLIDING SCALE 100 UNITS/ML UNIT SUBQ SCH ×4 (06:46→21:00)
[2018-03-20] MEDS: Pantoprazole 40 mg EC Tab PO SCH (07:03)
[2018-03-20] MEDS: Multivitamin Tab PO SCH (08:36)
[2018-03-20] MEDS: Calcium Carb/Vit D 500 mg/200 U Tab PO SCH ×2 (08:36→17:46)
[2018-03-20] MEDS: Atorvastatin Calcium 10 MG TAB PO SCH (21:39)
--- NOTE | 2018-03-21 00:40 | Progress Notes ---
DATE: 03/20/2018 PSYCHIATRIC PROGRESS NOTE SUBJECTIVE: Staff was spoken to. The patient is interviewed. Mood is noted to be irritable. Affect is constricted. The patient is still very paranoid, isolative and withdrawn. Coping skills are noted to be poor. Aggressive behavior has been coming down. The patient is able to tolerate the Zoloft and the aripiprazole. No side effects to the medications are noted. ASSESSMENT: The patient is still depressed. PLAN: To continue the patient with the supportive therapy. I encouraged the patient to verbalize the concerns rather than to act out. JOB# [id number]
--- NOTE | 2018-03-21 06:15 | General Progress Note ---
Subjective - Review of Systems Service Date: 03/21/18 Subjective: Awake, alert but confused. VS T98.1 P 76 BP 141/84 P 19 Objective - Results Result Diagrams: 03/13/18 19:20 03/13/18 19:20 Recent Labs: Laboratory Last Values WBC 9.7 Th/cmm (4.8-10.8) 03/13/18 19:20 RBC 4.32 Mil/cmm (3.80-5.80) 03/13/18 19:20 Hgb 13.5 gm/dL (12-16) 03/13/18 19:20 Hct 40.0 % (41.0-60) L 03/13/18 19:20 MCV 92.5 fl (80-99) 03/13/18 19:20 MCH 31.3 pg (27.0-31.0) H 03/13/18 19:20 MCHC Differential 33.8 pg (28.0-36.0) 03/13/18 19:20 RDW 13.1 % (11.5-20.0) 03/13/18 19:20 Plt Count 232 Th/cmm (150-400) 03/13/18 19:20 MPV 7.5 fl 03/13/18 19:20 Neutrophils % 70.3 % (40.0-80.0) 03/13/18 19:20 Lymphocytes % 20.6 % (20.0-50.0) 03/13/18 19:20 Monocytes % 7.2 % (2.0-10.0) 03/13/18 19:20 Eosinophils % 1.0 % (0.0-5.0) 03/13/18 19:20 Basophils % 0.9 % (0.0-2.0) 03/13/18 19:20 ESR 15 mm/hr (0-20) 03/13/18 19:20 PT 9.3 SECONDS (9.5-11.5) L 03/13/18 19:20 INR 0.90 (0.5-1.4) 03/13/18 19:20 PTT (Actin FS) 24.8 SECONDS (26.0-38.0) L 03/13/18 19:20 Sodium 140 mEq/L (136-145) 03/13/18 19:20 Potassium 3.9 mEq/L (3.5-5.1) 03/13/18 19:20 Chloride 104 mEq/L (98-107) 03/13/18 19:20 Carbon Dioxide 31.0 mEq/L (21.0-31.0) 03/13/18 19:20 Anion Gap 8.9 (7.0-16.0) 03/13/18 19:20 BUN 25 mg/dL (7-25) 03/13/18 19:20 Creatinine 1.2 mg/dL (0.7-1.3) 03/13/18 19:20 Est GFR ( Amer) > 60.0 ml/min (>90) 03/13/18 19:20 Est GFR (Non-Af Amer) > 60.0 ml/min 03/13/18 19:20 BUN/Creatinine Ratio 20.8 03/13/18 19:20 Glucose 163 mg/dL (70-105) H 03/13/18 19:20 POC Glucose 189 MG/DL (70 - 105) H 03/20/18 16:42 Calcium 9.3 mg/dL (8.6-10.3) 03/13/18 19:20 Total Bilirubin 0.6 mg/dL (0.3-1.0) 03/13/18 19:20 AST 18 U/L (13-39) 03/13/18 19:20 ALT 26 U/L (7-52) 03/13/18 19:20 Alkaline Phosphatase 71 U/L (34-104) 03/13/18 19:20 Total Protein 6.9 gm/dL (6.0-8.3) 03/13/18 19:20 Albumin 4.0 gm/dL (4.2-5.5) L 03/13/18 19:20 Globulin 2.9 gm/dL 03/13/18 19:20 Albumin/Globulin Ratio 1.4 (1.0-1.8) 03/13/18 19:20 TSH 1.21 uIU/ml (0.34-5.60) 03/13/18 19:20 - Physical Exam Vitals and I&O: Vital Signs Temp 98.1 F 03/20/18 20:14 Pulse 76 03/20/18 20:14 Resp 19 03/20/18 20:14 BP 141/84 03/20/18 20:14 Pulse Ox 96 03/20/18 20:14 Intake & Output 03/20/18 03/20/18 03/21/18 06:59 18:59 06:59 Intake Total 240 120 120 Output Total 0 Balance 240 120 120 Intake: Oral 240 120 120 Output: Stool 0 Other: # Voids 2 3 3 # Bowel Movements 0 0 Active Medications: Current Medications Acetaminophen (Tylenol) 650 mg PO Q4HR PRN PRN Reason: Mild Pain / Temp above 100 Stop: 05/12/18 21:23 Al Hydrox/Mg Hydrox/Simethicone (Maalox) 30 ml PO Q4HR PRN PRN Reason: GI DISTRESS Stop: 05/12/18 21:23 Amlodipine Besylate (Norvasc) 5 mg PO DAILY [facility] Stop: 05/13/18 08:59 Last Admin: 03/20/18 08:35 Dose: 5 mg Aripiprazole (Abilify) 2 mg PO DAILY [facility]; Protocol Stop: 05/13/18 08:59 Last Admin: 03/20/18 08:36 Dose: 2 mg Ascorbic Acid (Vitamin C) 500 mg PO DAILY [facility] Stop: 05/13/18 08:59 Last Admin: 03/20/18 08:36 Dose: 500 mg Atorvastatin Calcium (Lipitor) 10 mg PO HS [facility]; Protocol Stop: 05/13/18 20:59 Last Admin: 03/20/18 21:39 Dose: 10 mg Bisacodyl (Dulcolax 10 Mg Supp) 10 mg RC DAILY PRN PRN Reason: Constipation Stop: 05/12/18 22:35 Calcium/Vitamin D (Oscal W/Vitamin D) 1 tab PO BID [facility] Stop: 05/13/18 08:59 Last Admin: 03/20/18 17:46 Dose: Not Given Docusate Sodium (Colace) 100 mg PO DAILY [facility] Stop: 05/13/18 08:59 Last Admin: 03/20/18 08:36 Dose: 100 mg Donepezil HCl (Aricept) 5 mg PO HS [facility] Stop: 05/13/18 20:59 Last Admin: 03/20/18 21:39 Dose: 5 mg Insulin Aspart (Novolog Insulin Sliding Scale) 0 units SUBQ ACHS [facility]; Protocol Stop: 05/14/18 11:29 Last Admin: 03/20/18 16:53 Dose: Not Given Lorazepam (Ativan) 0.5 mg PO Q4HR PRN; Protocol PRN Reason: Anxiety/agitation Stop: 04/12/18 21:59 Last Admin: 03/20/18 09:07 Dose: 0.5 mg Magnesium Hydroxide (Milk Of Magnesia) 30 ml PO HS PRN PRN Reason: Constipation Multivitamins/Vitamin C (Theragran) 1 tab PO DAILY [facility] Stop: 05/13/18 08:59 Last Admin: 03/20/18 08:36 Dose: 1 tab Pantoprazole Sodium (Protonix) 40 mg PO QDAC [facility] Stop: 05/13/18 07:29 Last Admin: 03/20/18 07:03 Dose: 40 mg Sertraline HCl (Zoloft) 50 mg PO DAILY [facility]; Protocol Stop: 05/13/18 08:59 Last Admin: 03/20/18 08:34 Dose: 50 mg Valsartan (Diovan) 80 mg PO BID [facility] Stop: 05/13/18 08:59 Last Admin: 03/20/18 17:46 Dose: Not Given Zolpidem Tartrate (Ambien) 5 mg PO HS PRN PRN Reason: Insomnia Stop: 05/12/18 21:23 Last Admin: 03/19/18 21:18 Dose: 5 mg General: Alert, Oriented x3, No acute distress HEENT: Atraumatic, PERRLA, EOMI Neck: Supple, no JVD Cardiovascular: Normal S1, Normal S2 Lungs: Clear to auscultation Abdomen: Bowel sounds, Soft Extremities: no Clubbing, no Cyanosis, no Edema - Procedures Procedures: Procedures Procedure Code Date DRAINAGE OF L PLEURAL CAV WITH DRAIN DEV, PERC APPROACH [id number] 08/06/15 INSERTION OF CHEST TUBE 33892 08/06/15 Assessment/Plan - Assessment Assessment: Acute Psychosis HTN DM Hyperlipidemia Dementia - Plan Plan: Continue current treatment. Nutritional Asmnt/Malnutr-PDOC - Dietary Evaluation Malnutrition Findings (Please click <Entered> for more info): Nutritional Asmnt/Malnutrition Start: 03/16/18 16: 36 Text: Status: Complete Freq: Protocol: Document 03/16/18 16:36 ZAYRA (Rec: 03/16/18 16:43 [email or web address]) Nutritional Asmnt/Malnutrition Patient General Information Nutritional Screening Moderate Risk Diagnosis psychosis Pertinent Medical Hx/Surgical Hx hyperlipidemia, TIA, DM, THN, psychosis Subjective Information Pt seen in dining room at time of visit. Per EMR< PO intake 75-100% of meals. Current Diet Order/ Nutrition Support [facility] osoft chopped Pertinent Medications vit C, oscal w vit D, colace, novolog, theragran, protonix Pertinent Labs 03/13 glucose 163 03/15-03/16 POC 139-216 Nutritional Hx/Data Height 1.7 m Height (Calculated Centimeters) 170.2 Current Weight (lbs) 78.925 kg Weight (Calculated Kilograms) 78.9 Weight (Calculated Grams) 76589.1 [place] Body Weight 148 Body Mass Index (BMI) 27.2 Weight Status Overweight GI Symptoms GI Symptoms None Last BM 03/16 Difficult in: None Skin Integrity/Comment: intact Current %PO Good (75-100%) Estimated Nutritional Goals BEE in Kcals: Using Current wt Calories/Kcals/Kg 23-27 Kcals Calculated 7734-5849 Protein: Using Current wt Protein g/k.8-1 Protein Calculated 63-79 Fluid: ml 1817-2133ml (1ml/kcal) Nutritional Problem 1. Problem Problem altered nutrition related labs Etiology hx of DM Signs/Symptoms: glucose 163, POC 139-216 Malnutrition Alert Is there a minimum of two criteria No selected? Query Text:Check all the applicable criteria. A minimum of two criteria are recommended for diagnosis of either severe or non-severe malnutrition. Malnutrition Related to Morbid Obesity Malnutrition related to morbid obesity No Intervention/Recommendation Comments 1. Continue with [facility] soft chopped diet as ordered. 2. Monitor PO intake, wt, labs and skin integrity 3. F/U as low risk in 7 days, 03/23 Expected Outcomes/Goals Expected Outcomes/Goals 1. PO intake to meet at least 75% of nutritional needs. 2. Wt stability, skin to remain intact, labs to approach WNL.
[2018-03-21] MEDS: Pantoprazole 40 mg EC Tab PO SCH (06:32)
[2018-03-21] MEDS: INSULIN ASPART SLIDING SCALE 100 UNITS/ML UNIT SUBQ SCH ×4 (06:32→20:31)
[2018-03-21] MEDS: Multivitamin Tab PO SCH (09:25)
[2018-03-21] MEDS: Calcium Carb/Vit D 500 mg/200 U Tab PO SCH ×2 (09:28→17:37)
--- NOTE | 2018-03-21 20:02 | Progress Notes ---
DATE: 03/21/2018 SUBJECTIVE: Staff was spoke to. Patient is interviewed. Mood is noted to be irritable. Affect is constricted. The patient has a tendency to lash out at the staff members when they tried to redirect him. Coping skills are noted to be poor. No side effects to the medications are noted. ASSESSMENT: The patient is still grossly impulsive. PLAN: To continue the patient with the supportive therapy and encourage the patient to verbalize the concerns rather than to act out. JOB# [id number]
[2018-03-21] MEDS: Atorvastatin Calcium 10 MG TAB PO SCH (20:31)
--- NOTE | 2018-03-22 06:31 | General Progress Note ---
Subjective - Review of Systems Service Date: 03/22/18 Subjective: Awake, alert but confused. VS T97.4 P 73 BP 163/90 P 19 Objective - Results Result Diagrams: 03/13/18 19:20 03/13/18 19:20 Recent Labs: Laboratory Last Values WBC 9.7 Th/cmm (4.8-10.8) 03/13/18 19:20 RBC 4.32 Mil/cmm (3.80-5.80) 03/13/18 19:20 Hgb 13.5 gm/dL (12-16) 03/13/18 19:20 Hct 40.0 % (41.0-60) L 03/13/18 19:20 MCV 92.5 fl (80-99) 03/13/18 19:20 MCH 31.3 pg (27.0-31.0) H 03/13/18 19:20 MCHC Differential 33.8 pg (28.0-36.0) 03/13/18 19:20 RDW 13.1 % (11.5-20.0) 03/13/18 19:20 Plt Count 232 Th/cmm (150-400) 03/13/18 19:20 MPV 7.5 fl 03/13/18 19:20 Neutrophils % 70.3 % (40.0-80.0) 03/13/18 19:20 Lymphocytes % 20.6 % (20.0-50.0) 03/13/18 19:20 Monocytes % 7.2 % (2.0-10.0) 03/13/18 19:20 Eosinophils % 1.0 % (0.0-5.0) 03/13/18 19:20 Basophils % 0.9 % (0.0-2.0) 03/13/18 19:20 ESR 15 mm/hr (0-20) 03/13/18 19:20 PT 9.3 SECONDS (9.5-11.5) L 03/13/18 19:20 INR 0.90 (0.5-1.4) 03/13/18 19:20 PTT (Actin FS) 24.8 SECONDS (26.0-38.0) L 03/13/18 19:20 Sodium 140 mEq/L (136-145) 03/13/18 19:20 Potassium 3.9 mEq/L (3.5-5.1) 03/13/18 19:20 Chloride 104 mEq/L (98-107) 03/13/18 19:20 Carbon Dioxide 31.0 mEq/L (21.0-31.0) 03/13/18 19:20 Anion Gap 8.9 (7.0-16.0) 03/13/18 19:20 BUN 25 mg/dL (7-25) 03/13/18 19:20 Creatinine 1.2 mg/dL (0.7-1.3) 03/13/18 19:20 Est GFR ( Amer) > 60.0 ml/min (>90) 03/13/18 19:20 Est GFR (Non-Af Amer) > 60.0 ml/min 03/13/18 19:20 BUN/Creatinine Ratio 20.8 03/13/18 19:20 Glucose 163 mg/dL (70-105) H 03/13/18 19:20 POC Glucose 189 MG/DL (70 - 105) H 03/20/18 16:42 Calcium 9.3 mg/dL (8.6-10.3) 03/13/18 19:20 Total Bilirubin 0.6 mg/dL (0.3-1.0) 03/13/18 19:20 AST 18 U/L (13-39) 03/13/18 19:20 ALT 26 U/L (7-52) 03/13/18 19:20 Alkaline Phosphatase 71 U/L (34-104) 03/13/18 19:20 Total Protein 6.9 gm/dL (6.0-8.3) 03/13/18 19:20 Albumin 4.0 gm/dL (4.2-5.5) L 03/13/18 19:20 Globulin 2.9 gm/dL 03/13/18 19:20 Albumin/Globulin Ratio 1.4 (1.0-1.8) 03/13/18 19:20 TSH 1.21 uIU/ml (0.34-5.60) 03/13/18 19:20 - Physical Exam Vitals and I&O: Vital Signs Temp 97.4 F 03/22/18 06:07 Pulse 73 03/22/18 06:07 Resp 19 03/22/18 06:07 BP 163/90 03/22/18 06:07 Pulse Ox 100 03/22/18 06:07 Intake & Output 03/21/18 03/21/18 03/22/18 06:59 18:59 06:59 Intake Total 120 1300 240 Balance 120 1300 240 Intake: Oral 120 1300 240 Other: # Voids 3 3 5 # Bowel Movements 0 0 1 Active Medications: Current Medications Acetaminophen (Tylenol) 650 mg PO Q4HR PRN PRN Reason: Mild Pain / Temp above 100 Stop: 05/12/18 21:23 Al Hydrox/Mg Hydrox/Simethicone (Maalox) 30 ml PO Q4HR PRN PRN Reason: GI DISTRESS Stop: 05/12/18 21:23 Amlodipine Besylate (Norvasc) 5 mg PO DAILY [facility] Stop: 05/13/18 08:59 Last Admin: 03/21/18 09:27 Dose: 5 mg Aripiprazole (Abilify) 2 mg PO DAILY [facility]; Protocol Stop: 05/13/18 08:59 Last Admin: 03/21/18 09:28 Dose: 2 mg Ascorbic Acid (Vitamin C) 500 mg PO DAILY [facility] Stop: 05/13/18 08:59 Last Admin: 03/21/18 09:28 Dose: 500 mg Atorvastatin Calcium (Lipitor) 10 mg PO HS [facility]; Protocol Stop: 05/13/18 20:59 Last Admin: 03/21/18 20:31 Dose: 10 mg Bisacodyl (Dulcolax 10 Mg Supp) 10 mg RC DAILY PRN PRN Reason: Constipation Stop: 05/12/18 22:35 Calcium/Vitamin D (Oscal W/Vitamin D) 1 tab PO BID [facility] Stop: 05/13/18 08:59 Last Admin: 03/21/18 17:37 Dose: Not Given Docusate Sodium (Colace) 100 mg PO DAILY [facility] Stop: 05/13/18 08:59 Last Admin: 03/21/18 09:27 Dose: 100 mg Donepezil HCl (Aricept) 5 mg PO HS [facility] Stop: 05/13/18 20:59 Last Admin: 03/21/18 20:31 Dose: 5 mg Insulin Aspart (Novolog Insulin Sliding Scale) 0 units SUBQ ACHS [facility]; Protocol Stop: 05/14/18 11:29 Last Admin: 03/21/18 20:31 Dose: Not Given Lorazepam (Ativan) 0.5 mg PO Q4HR PRN; Protocol PRN Reason: Anxiety/agitation Stop: 04/12/18 21:59 Last Admin: 03/21/18 17:38 Dose: 0.5 mg Magnesium Hydroxide (Milk Of Magnesia) 30 ml PO HS PRN PRN Reason: Constipation Multivitamins/Vitamin C (Theragran) 1 tab PO DAILY [facility] Stop: 05/13/18 08:59 Last Admin: 03/21/18 09:25 Dose: 1 tab Pantoprazole Sodium (Protonix) 40 mg PO QDAC [facility] Stop: 05/13/18 07:29 Last Admin: 03/21/18 06:32 Dose: 40 mg Sertraline HCl (Zoloft) 50 mg PO DAILY [facility]; Protocol Stop: 05/13/18 08:59 Last Admin: 03/21/18 09:25 Dose: 50 mg Valsartan (Diovan) 80 mg PO BID [facility] Stop: 05/13/18 08:59 Last Admin: 03/21/18 17:37 Dose: Not Given Zolpidem Tartrate (Ambien) 5 mg PO HS PRN PRN Reason: Insomnia Stop: 05/12/18 21:23 Last Admin: 03/21/18 20:32 Dose: 5 mg General: Alert, Oriented x3, No acute distress HEENT: Atraumatic, PERRLA, EOMI Neck: Supple, no JVD Cardiovascular: Normal S1, Normal S2 Lungs: Clear to auscultation Abdomen: Bowel sounds, Soft Extremities: no Clubbing, no Cyanosis, no Edema - Procedures Procedures: Procedures Procedure Code Date DRAINAGE OF L PLEURAL CAV WITH DRAIN DEV, PERC APPROACH [id number] 08/06/15 INSERTION OF CHEST TUBE 93856 08/06/15 Assessment/Plan - Assessment Assessment: Acute Psychosis HTN slightly elevated today DM Hyperlipidemia Dementia - Plan Plan: Continue current treatment. clonidine prn Nutritional Asmnt/Malnutr-PDOC - Dietary Evaluation Malnutrition Findings (Please click <Entered> for more info): Nutritional Asmnt/Malnutrition Start: 03/16/18 16: 36 Text: Status: Complete Freq: Protocol: Document 03/16/18 16:36 ZAYRA (Rec: 03/16/18 16:43 ZAYRA [id number]) Nutritional Asmnt/Malnutrition Patient General Information Nutritional Screening Moderate Risk Diagnosis psychosis Pertinent Medical Hx/Surgical Hx hyperlipidemia, TIA, DM, THN, psychosis Subjective Information Pt seen in dining room at time of visit. Per EMR< PO intake 75-100% of meals. Current Diet Order/ Nutrition Support [facility] osoft chopped Pertinent Medications vit C, oscal w vit D, colace, novolog, theragran, protonix Pertinent Labs 03/13 glucose 163 03/15-03/16 POC 139-216 Nutritional Hx/Data Height 1.7 m Height (Calculated Centimeters) 170.2 Current Weight (lbs) 78.925 kg Weight (Calculated Kilograms) 78.9 Weight (Calculated Grams) 88275.1 [place] Body Weight 148 Body Mass Index (BMI) 27.2 Weight Status Overweight GI Symptoms GI Symptoms None Last BM 03/16 Difficult in: None Skin Integrity/Comment: intact Current %PO Good (75-100%) Estimated Nutritional Goals BEE in Kcals: Using Current wt Calories/Kcals/Kg 23-27 Kcals Calculated 1599-3745 Protein: Using Current wt Protein g/k.8-1 Protein Calculated 63-79 Fluid: ml 1817-2133ml (1ml/kcal) Nutritional Problem 1. Problem Problem altered nutrition related labs Etiology hx of DM Signs/Symptoms: glucose 163, POC 139-216 Malnutrition Alert Is there a minimum of two criteria No selected? Query Text:Check all the applicable criteria. A minimum of two criteria are recommended for diagnosis of either severe or non-severe malnutrition. Malnutrition Related to Morbid Obesity Malnutrition related to morbid obesity No Intervention/Recommendation Comments 1. Continue with [facility] soft chopped diet as ordered. 2. Monitor PO intake, wt, labs and skin integrity 3. F/U as low risk in 7 days, 03/23 Expected Outcomes/Goals Expected Outcomes/Goals 1. PO intake to meet at least 75% of nutritional needs. 2. Wt stability, skin to remain intact, labs to approach WNL.
[2018-03-22] MEDS: INSULIN ASPART SLIDING SCALE 100 UNITS/ML UNIT SUBQ SCH ×2 (06:36→11:48)
[2018-03-22] MEDS: Pantoprazole 40 mg EC Tab PO SCH (06:36)
[2018-03-22] MEDS: Multivitamin Tab PO SCH (09:50)
[2018-03-22] MEDS: Calcium Carb/Vit D 500 mg/200 U Tab PO SCH (09:51)
--- NOTE | 2018-03-22 14:00 | Progress Notes ---
DATE: 03/22/2018 SUBJECTIVE: Staff was spoken to. The patient is interviewed. Mood is noted to be anxious. Affect is appropriate. Not suicidal or homicidal. Insight and judgment are improving. Impulse control seems to be fair. No side effects to the medications are noted. The patient is willing to comply with the treatment. ASSESSMENT: The patient is stabilizing. JOB# [id number]
--- NOTE | 2018-03-25 11:57 | Discharge Summary ---
DATE OF DISCHARGE: 03/22/2018 IDENTIFYING DATA: The patient is a 67-year-old male resident of longterm facility that is the [facility]. JUSTIFICATION FOR HOSPITALIZATION: The patient is admitted for his aggressive behavior towards the staff members. CHIEF COMPLAINT: "I don't know." DIAGNOSES AT THE TIME OF THE ADMISSION: AXIS I: Major depressive disorder with psychotic symptoms. AXIS II: None. AXIS III: As per Dr. Marie. HISTORY OF PRESENT ILLNESS: Please refer to the 03/14/2018 dictation done by me. Physical examination was done by Dr. Marie and is noted to be significant for the hyperlipidemia, TIA, diabetes mellitus and hypertension. HOSPITAL COURSE AND RESPONSE TO TREATMENT: The patient has been observed on the inpatient unit, provided with supportive psychotherapy. The patient has been closely monitored. I encouraged to verbalize the concerns rather than to act out. The patient has been placed on the aripiprazole 2 mg at bedtime for his psychosis and aggression. The patient has been set to ____ mg of the Zoloft in the morning. With these medications, the patient has been observed and was noted to be doing fairly well and hence the patient is discharged to be followed up at the [facility]. MENTAL STATUS EXAMINATION: At the time of discharge, the patient's mood is noted to be less irritable. Affect is appropriate. Not suicidal or homicidal. Coping skills are noted to be fair. The patient is redirectable. No aggressive behavior is noted at the time of discharge. CONDITION: At the time of discharge noted to be stable. DIAGNOSES AT TIME OF DISCHARGE: AXIS I: Major depressive disorder, recurrent with psychotic symptoms. AXIS II: None. AXIS III: Transient ischemic attack, diabetes mellitus and hypertension. AFTERCARE PLAN: The patient is discharged to [facility] to be followed up on an outpatient basis. JOB# [id number]
== END 2018-03-22 15:40 | DRG 885 ==
LOC: ER 18:31 → GERO2 20:30
PROVIDERS: ADMIT Psychiatry & Neurology Psychiatry; ATTEND Psychiatry & Neurology Psychiatry
DX: F33.3 Major depressive disorder, recurrent, severe with psychotic symptoms (principal); I11.0 Hypertensive heart disease with heart failure; E78.5 Hyperlipidemia, unspecified; E11.9 Type 2 diabetes mellitus without complications; F03.90 Unspecified dementia, unspecified severity, without behavioral disturbance, psychotic disturbance, mood disturbance, and anxiety; J44.9 Chronic obstructive pulmonary disease, unspecified; I50.9 Heart failure, unspecified; Z86.73 Personal history of transient ischemic attack (TIA), and cerebral infarction without residual deficits; Z87.891 Personal history of nicotine dependence
CPT/HCPCS: 36415-UA; 80053-TC; 82948-90; 84443-TC; 85025-TC; 85610-TC; 85652-TC; 93005; J1200; J1630; J1815; X3401; Z7610

== ENCOUNTER 2018-12-11 19:59 | Inpatient (IN) | payer MEDICARE, MEDICAID ==
[2018-12-11 20:38] LABS: % BASOPHILS 0.7 % (0.0-2.0); % EOSINOPHILS 2.8 % (0.0-5.0); % LYMPHOCYTES 32.6 % (20.0-50.0); % MONOCYTES 5.6 % (2.0-10.0); % NEUTROPHILS 58.3 % (40.0-80.0); BASOPHILE ABSOLUTE 0.1 Th/cumm (0-0.2); EOSINOPHILE ABSOLUTE 0.3 Th/cmm (0.1-0.4); HEMATOCRIT 38.1 % (41.0-60); HEMOGLOBIN 12.6 gm/dL (12-16); LYMPHOCYTE ABSOLUTE 3.6 Th/cmm (1.5-3.0); MEAN CELL VOLUME 95.6 fl (80-99); MEAN CORPUSCULAR HEMOGLOBIN 31.7 pg (27.0-31.0); MEAN CORPUSCULAR HGB CONC 33.2 pg (28.0-36.0); MEAN PLATELET VOLUME 7.9 fl; MONOCYTE ABSOLUTE 0.6 Th/cmm (0.3-1.0); NEUTROPHILE ABSOLUTE 6.3 Th/cmm (1.8-8.0); PLATELET COUNT 305 Th/cmm (150-400); RED BLOOD COUNT 3.98 Mil/cmm (3.80-5.80); RED CELL DISTRIBUTION WIDTH 12.8 % (11.5-20.0); WHITE BLOOD COUNT 10.9 Th/cmm (4.8-10.8)
[2018-12-11 20:53] LABS: INF A SCREEN NEG FOR INF A
[2018-12-11 20:54] LABS: ALB/GLOB RATIO 1.2 (1.0-1.8); ALBUMIN 3.7 gm/dL (4.2-5.5); ALKALINE PHOSPHATASE 51 U/L (34-104); ANION GAP 14.6 (7.0-16.0); BILIRUBIN,TOTAL 0.3 mg/dL (0.3-1.0); BUN - UREA NITROGEN 24 mg/dL (7-25); CALCIUM SERUM 8.7 mg/dL (8.6-10.3); CARBON DIOXIDE 23.4 mEq/L (21.0-31.0); CHLORIDE 111 mEq/L (98-107); CREATININE - SERUM 1.1 mg/dL (0.7-1.3); GFR AFRICAN-AMERICAN > 60.0 ml/min (>90); GFR NON AFRICAN-AMERICAN > 60.0 ml/min; GLUCOSE 96 mg/dL (70-105); LIPASE 34 U/L (11-82); SGOT 20 U/L (13-39); SGPT/ALT 12 U/L (7-52); SODIUM SERUM 145 mEq/L (136-145); TOTAL PROTEIN,SERUM 6.9 gm/dL (6.0-8.3)
[2018-12-11 20:54] LABS: INF B SCREEN NEG FOR INF B
[2018-12-11] MEDS ORDERED: Sodium Chloride 0.9% 1,000 ML IV ONE (21:03)
--- NOTE | 2018-12-11 21:10 | ED Physician Chart ---
ED Chief Complaint/HPI - Patient Information Date Seen:: 12/11/18 Time Seen:: 21:10 Chief Complaint:: Failure to thrive History of Present Illness:: 68 yo male with TIA, hyperlipidemia, dementia, depression and anxiety, was brought from [facility] to ER for evaluation of generalized weakness and failure to thrive. Pt was non-verbal but followed commands. Allergies:: Allergies Allergy/AdvReac Type Severity Reaction Status Date / Time No Known Allergies Allergy Verified 01/30/18 23:04 Vitals:: Vital Signs - 8 hr 12/11/18 20:01 Temp 97 F HR 84 RR 16 BP 132/84 O2 Sat % 98 ED Review of Systems - Review of Systems General/Constitutional: No fever, Weakness Skin: No rash Head: No headache ENT: No nasal drainage Neck: Neck pain Cardio Vascular: No chest pain Pulmonary: No SOB GI: No nausea, No vomiting, Pain Musculoskeletal: No bone or joint pain Neurological: Other Other: Non verbal ED Past Medical History - Past Medical History Past Medical History: CVA/TIA, Dyslipidemia, Dementia Social History: Non Smoker, No Alcohol, No Drug Use Psychiatricy History: Depression, Other (anxiety) Family Medical History - Family Member Mother History Unknown: Yes Ethnicity: Unknown Living Status: Unknown ED Physical Exam - Physical Examination General/Constitutional: Awake, Alert Head: Atraumatic Eyes: PERRL, EOMI Skin: No skin lesions ENMT: Nasal exam nl Neck: No nuchal rigidity Respiratory: No Wheeze/Rhonchi/Rales Cardio Vascular: RRR, No murmur, gallop, rubs, NL S1 S2 Other GI comments:: Soft, but distended Extremities: normal strength in all extremities Other Neuro/Psych comments:: Non-verbal, follow commands ED Labs/Radiology/EKG Results - Lab Results Results: Laboratory Tests 12/11/18 12/11/18 12/11/18 20:24 20:30 20:30 WBC 10.9 H RBC 3.98 Hgb 12.6 Hct 38.1 L MCV 95.6 MCH 31.7 H MCHC Differential 33.2 RDW 12.8 Plt Count 305 MPV 7.9 Neutrophils % 58.3 Lymphocytes % 32.6 Monocytes % 5.6 Eosinophils % 2.8 Basophils % 0.7 Sodium 145 Potassium 4.0 Chloride 111 H Carbon Dioxide 23.4 Anion Gap 14.6 BUN 24 Creatinine 1.1 Est GFR ( Amer) > 60.0 Est GFR (Non-Af Amer) > 60.0 BUN/Creatinine Ratio 21.8 Glucose 96 Calcium 8.7 Total Bilirubin 0.3 AST 20 ALT 12 Alkaline Phosphatase 51 Troponin I B-Natriuretic Peptide Total Protein 6.9 Albumin 3.7 L Globulin 3.2 Albumin/Globulin Ratio 1.2 Lipase 34 Influenza A (Rapid) NEG FOR INF A Influenza B (Rapid) NEG FOR INF B 12/11/18 12/11/18 20:30 20:30 WBC RBC Hgb Hct MCV MCH MCHC Differential RDW Plt Count MPV Neutrophils % Lymphocytes % Monocytes % Eosinophils % Basophils % Sodium Potassium Chloride Carbon Dioxide Anion Gap BUN Creatinine Est GFR ( Amer) Est GFR (Non-Af Amer) BUN/Creatinine Ratio Glucose Calcium Total Bilirubin AST ALT Alkaline Phosphatase Troponin I < 0.01 L B-Natriuretic Peptide 16.3 Total Protein Albumin Globulin Albumin/Globulin Ratio Lipase Influenza A (Rapid) Influenza B (Rapid) - Radiology Results Results: CXR: no focal consolidation. CT abdomen/pelvis wo IV contrast: severely distended stomach and fecal impacted rectum - EKG Interpretations EKG Time:: 20:22 Rate & Rhythm: 77 bpm, sinus rhythm Latty: normal P axis Comments:: No ST, T change. Normal EKG ED Assessment - Assessment General Assessment: Severely distended stomach secondary to possible bowel obstruction due to fecal impaction in the rectum. Mild leukocytosis Dehydration Assessment/Comments:: CBC, CMP, BNP, Trop, lipase CXR CT abdomen/pelvis without contrast NS 1L IV bolus Rocephin 1g IV Admit to med surg for disimpaction ED Septic Shock - . Is Septic Shock (SBP<90, OR Lactate>4 mmol\L) present?: No - <6hrs of presentation: Vital Signs: Vital Signs - 8 hr 12/11/18 20:01 Temp 97 F HR 84 RR 16 BP 132/84 O2 Sat % 98 ED Reassessment (Disposition) - Reassessment Reassessment Condition:: Improved - Patient Disposition Discharge/Transfer:: Acute Care w/in this hosp Admitting Medical Physician:: Diaz Marie
[2018-12-12] MEDS: D5-0.45NS 1,000 ML IV SCH ×2 (01:15→22:04)
[2018-12-12 04:14] VITALS: BP 126/65
[2018-12-12 06:35] LABS: % BASOPHILS 0.4 % (0.0-2.0); % EOSINOPHILS 2.7 % (0.0-5.0); % LYMPHOCYTES 30.4 % (20.0-50.0); % MONOCYTES 6.3 % (2.0-10.0); % NEUTROPHILS 60.2 % (40.0-80.0); EOSINOPHILE ABSOLUTE 0.2 Th/cmm (0.1-0.4); HEMATOCRIT 34.6 % (41.0-60); HEMOGLOBIN 11.6 gm/dL (12-16); LYMPHOCYTE ABSOLUTE 2.8 Th/cmm (1.5-3.0); MEAN CORPUSCULAR HEMOGLOBIN 31.9 pg (27.0-31.0); MEAN CORPUSCULAR HGB CONC 33.5 pg (28.0-36.0); MEAN PLATELET VOLUME 8.8 fl; MONOCYTE ABSOLUTE 0.6 Th/cmm (0.3-1.0); NEUTROPHILE ABSOLUTE 5.5 Th/cmm (1.8-8.0); PLATELET COUNT 242 Th/cmm (150-400); RED BLOOD COUNT 3.64 Mil/cmm (3.80-5.80); RED CELL DISTRIBUTION WIDTH 12.3 % (11.5-20.0); WHITE BLOOD COUNT 9.1 Th/cmm (4.8-10.8)
[2018-12-12 06:50] LABS: ANION GAP 9.7 (7.0-16.0); BUN - UREA NITROGEN 20 mg/dL (7-25); CALCIUM SERUM 8.3 mg/dL (8.6-10.3); CARBON DIOXIDE 24.8 mEq/L (21.0-31.0); CHLORIDE 109 mEq/L (98-107); GFR AFRICAN-AMERICAN > 60.0 ml/min (>90); GFR NON AFRICAN-AMERICAN > 60.0 ml/min; GLUCOSE 89 mg/dL (70-105); POTASSIUM SERUM 3.5 mEq/L (3.5-5.1); SODIUM SERUM 140 mEq/L (136-145)
--- NOTE | 2018-12-12 08:10 | History and Physical ---
History of Present Illness - HPI Chief Complaint: Failure to thrive HPI: 68 y/o male who presents to [facility] ER from SNF for failure to thrive and generalized weakness. Patient has a history of TIA, HTN, DM type 2 , Hyperlipidemia, generalized weakness, Seuizure disorder, Alzheimer's dementia , osteoporosis, psychosis, depression, anxiety disorder, GERD. While in the ER patient had CT abd/pelvis which revealed fecal impaction, diverticulosis but no diverticulitis, with severely distended abdomen. Initial labwork done in the ER showed the following.... lactic acid 1.99 BNP 16.3 troponin <0.01 Na 145 K 4.0 Bun/Cr 24/1.1 glu 96 WBC 10 H/H 12.6/38.1 platelets 305 Patient was subsequently admitted to the med/surg for further evaluation. 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: Dementia, TIA GI: Report: GERD, Other (fecal impaction) Psych: Report: Anxiety, Depression Musculoskeletal: Report: Weakness Rheumatologic: Report: No pertinent Hx Infectious Disease: Report: No Pertinent Hx Renal/: Report: No Pertinent Hx Endocrine: Report: Diabetes Dermatology: Report: No Pertinent Hx - Past Surgical History Past Surgical History: No pertinent Hx Family Medical History - Family Member Mother History Unknown: Yes Ethnicity: Unknown Living Status: Unknown Social History Smoke: No Alcohol: None Drugs: None Lives: Shelter - Medications Home Medications: Home Medication Medication Instructions Recorded Type Ascorbic Acid 500 mg PO DAILY 03/13/18 History Atorvastatin Calcium [Lipitor] 10 mg PO HS 03/13/18 History Bisacodyl [Dulcolax 10 Mg Supp] 1 supp RC DAILY PRN 03/13/18 History Calcium Carb/Vit D 500mg/200U 1 tab PO BID 03/13/18 History [Oscal w/Vitamin D] Docusate Sodium [Colace] 100 mg PO DAILY 03/13/18 History Donepezil Hcl [Aricept] 5 mg PO HS 03/13/18 History Pantoprazole [Protonix] 40 mg PO DAILY 03/13/18 History Sertraline [Zoloft] 25 mg PO DAILY 03/13/18 History Valsartan [Diovan] 80 mg PO BID 03/13/18 History amLODIPine Besylate [Norvasc] 5 mg PO DAILY 03/13/18 History aripIPRAZOLE [Abilify] 10 mg PO DAILY 03/13/18 History Acetaminophen [Tylenol] 650 mg PO Q4HR PRN tab 03/22/18 Rx Al Hyd/Mg Hyd/Simethicone [Maalox] 30 ml PO Q4HR PRN udc 03/22/18 Rx Insulin Aspart Sliding Scale See Protocol SUBQ ACHS unit 03/22/18 Rx [NovoLOG INSULIN SLIDING SCALE] Multivitamin [Theragran] 1 tab PO DAILY tab 03/22/18 Rx Zolpidem Tartrate [Ambien] 5 mg PO HS PRN #0 tab 03/22/18 Rx cloNIDine HCl [Catapres] 0.1 mg PO Q8H PRN tab 03/22/18 Rx Calcium Carb/Vit D 500mg/200U 1 tab PO BID 12/11/18 History [Oscal w/Vitamin D] Docusate Sodium [Colace] 1 cap PO DAILY 12/11/18 History Donepezil Hcl [Aricept] 5 mg PO HS 12/11/18 History Fleet Enema 1 dose PRN 12/11/18 History Glipizide 1 tab PO BID 12/11/18 History Insulin Regular, Human [Humulin R] See Protocol SQ ACHS 12/11/18 History Lorazepam [Ativan] 1 mg IM Q6HR PRN 12/11/18 History Lorazepam [Ativan] 1 mg PO Q6HR PRN 12/11/18 History Magnesium Hydroxide [Milk of 30 ml PO DAILY PRN 12/11/18 History Magnesia] Megestrol Acetate [Megace] 10 ml PO QDAC 12/11/18 History Valproic Acid [Depakene] 1 cap PO BID 12/11/18 History cloNIDine 0.1 mg/24 hr 1 patch TD Q4HR PRN 12/11/18 History [Pqihkaxh-MXO-2*] - Allergies Allergies/Adverse Reactions: Allergies Allergy/AdvReac Type Severity Reaction Status Date / Time No Known Allergies Allergy Verified 06/05/18 23:04 Review of Systems - Review of Systems Constitutional: Report: No Significant Eyes: Report: No Significant ENT: Report: No Significant Respiratory: Report: No Significant Cardiovascular: Report: No Significant Gastrointestinal: Report: Constipation Genitourinary: Report: No Significant Musculoskeletal: Report: No Significant Skin: Report: No Significant Neurological: Report: No Significant Physical Exam - Physical Exam HEENT: Report: Ears Nose Throat within normal limits, Pharnyx within normal limits Neck: Report: Within normal limits Cardiovascular Systems: Report: +s1/s2 noted, Regular, Rate and Rhythm Respiratory: Report: Breath Sounds are within normal limits, Clear to Auscultation of lung [place] Abdomen: Report: Non-tender to palpation Back: Report: Inspection of back is within normal limits. Extremities: Report: Non-tender to palpation. Skin: Report: Color of skin is within normal limits Neuro/Psych: Report: Mood affect is within normal limits - Lab Results All Lab Results last 24 hours: Laboratory Results - last 24 hr 12/11/18 12/11/18 12/11/18 20:24 20:30 20:30 WBC 10.9 H RBC 3.98 Hgb 12.6 Hct 38.1 L MCV 95.6 MCH 31.7 H MCHC Differential 33.2 RDW 12.8 Plt Count 305 MPV 7.9 Neutrophils % 58.3 Lymphocytes % 32.6 Monocytes % 5.6 Eosinophils % 2.8 Basophils % 0.7 Sodium 145 Potassium 4.0 Chloride 111 H Carbon Dioxide 23.4 Anion Gap 14.6 BUN 24 Creatinine 1.1 Est GFR ( Amer) > 60.0 Est GFR (Non-Af Amer) > 60.0 BUN/Creatinine Ratio 21.8 Glucose 96 Whole Bld Lactic Acid Calcium 8.7 Total Bilirubin 0.3 AST 20 ALT 12 Alkaline Phosphatase 51 Troponin I B-Natriuretic Peptide Total Protein 6.9 Albumin 3.7 L Globulin 3.2 Albumin/Globulin Ratio 1.2 Lipase 34 Influenza A (Rapid) NEG FOR INF A Influenza B (Rapid) NEG FOR INF B 12/11/18 12/11/18 12/11/18 20:30 20:30 20:30 WBC RBC Hgb Hct MCV MCH MCHC Differential RDW Plt Count MPV Neutrophils % Lymphocytes % Monocytes % Eosinophils % Basophils % Sodium Potassium Chloride Carbon Dioxide Anion Gap BUN Creatinine Est GFR ( Amer) Est GFR (Non-Af Amer) BUN/Creatinine Ratio Glucose Whole Bld Lactic Acid 1.99 Calcium Total Bilirubin AST ALT Alkaline Phosphatase Troponin I < 0.01 L B-Natriuretic Peptide 16.3 Total Protein Albumin Globulin Albumin/Globulin Ratio Lipase Influenza A (Rapid) Influenza B (Rapid) 12/12/18 12/12/18 05:35 05:35 WBC 9.1 RBC 3.64 L Hgb 11.6 L Hct 34.6 L MCV 95.0 MCH 31.9 H MCHC Differential 33.5 RDW 12.3 Plt Count 242 D MPV 8.8 Neutrophils % 60.2 Lymphocytes % 30.4 Monocytes % 6.3 Eosinophils % 2.7 Basophils % 0.4 Sodium 140 Potassium 3.5 Chloride 109 H Carbon Dioxide 24.8 Anion Gap 9.7 BUN 20 Creatinine 1.0 Est GFR ( Amer) > 60.0 Est GFR (Non-Af Amer) > 60.0 BUN/Creatinine Ratio 20.0 Glucose 89 Whole Bld Lactic Acid Calcium 8.3 L Total Bilirubin AST ALT Alkaline Phosphatase Troponin I B-Natriuretic Peptide Total Protein Albumin Globulin Albumin/Globulin Ratio Lipase Influenza A (Rapid) Influenza B (Rapid) - Assessment Assessment: Severely distended stomach secondary to possible bowel obstruction due to fecal impaction in the rectum. Mild leukocytosis Dehydration TIA HTN, DM type 2, Hyperlipidemia, generalized weakness, Seizure disorder, Alzheimer's dementia, osteoporosis, psychosis, depression, anxiety disorder, GERD - Plan Plan: admit to med/surg GI consult clear liquid diet IV fluids CBC,CMP tomorrow
[2018-12-12] MEDS ORDERED: Magnesium Hydroxide (MOM) 30 mL UDC PO PRN (08:14)
[2018-12-12] MEDS ORDERED: Maalox 30 mL Cup PO PRN (08:14)
[2018-12-12] MEDS ORDERED: cloNIDine 0.1 mg/24 hr Tdm TD PRN (08:14)
--- NOTE | 2018-12-12 09:10 | Diagnostic Imaging Report ---
Chest x-ray single view History: Insert breath Comparison: 01/31/2018 The heart size is normal. No focal pulmonary parenchymal processes. No hilar or mediastinal abnormalities. Impression: No acute abnormalities
[2018-12-12] MEDS: Pantoprazole 40 mg EC Tab PO SCH (09:15)
[2018-12-12] MEDS: Calcium Carb/Vit D 500 mg/200 U Tab PO SCH ×3 (09:16→16:16)
--- NOTE | 2018-12-12 09:17 | Diagnostic Imaging Report ---
Exam: CT examination of the pelvis HISTORY: Abdominal discomfort Total DLP equals 662 CTDI equals 1.7. Findings: Multiple contiguous thin section of the abdomen pelvis obtained from lower thorax to pubic symphysis without the administration of oral intravenous contrast material, the study correlated prior exam of 01/13/2016. The study demonstrates normal aeration of lung parenchyma the bases. The liver and spleen intact. The spleen somewhat prominent. The gallbladder is normal. The stomach is distended. The adrenal glands intact. The kidneys demonstrate no evidence of obstructive uropathy or nephrolithiasis. There is evidence of diverticular disease of the cecum. The appendix is intact. The aortic is calcified. Fecal impaction rectum is noted. Bladder is normal. IMPRESSION: Distended stomach Diverticulosis cecum Fecal impaction the rectum.
[2018-12-12] MEDS: Atorvastatin Calcium 10 MG TAB PO SCH (22:02)
--- NOTE | 2018-12-13 00:26 | Consultation ---
DATE OF CONSULTATION: 12/12/2018 CONSULTING PHYSICIAN: Dr. Marie. REASON FOR CONSULTATION: Fecal impaction. HISTORY OF PRESENT ILLNESS: The patient is a 68-year-old male with past medical history significant for vascular dementia, previous TIA, hyperlipidemia and depression who was admitted to the hospital from his nursing facility for weakness and failure to thrive type symptoms. In the ER, the patient was found to have a fecal impaction causing bowel dilation and stomach dilation on CT imaging. He is otherwise nonverbal, but by report has not been eating much. PAST MEDICAL HISTORY: Vascular dementia, hyperlipidemia, depression, anxiety and previous TIA. PAST SURGICAL HISTORY: Unknown. FAMILY HISTORY: Noncontributory. SOCIAL HISTORY: The patient lives at a nursing facility with 24-hour care. No documented history of illicit drug use or alcoholism. ALLERGIES: There are no known drug allergies. REVIEW OF SYSTEMS: Not possible given the patient is unable to participate in the interview. CURRENT MEDICATIONS: Include IV fluids. PHYSICAL EXAMINATION: VITAL SIGNS: The blood pressure is 154/79, pulse 67 beats per minute, respiratory rate of 18, temperature 97.3 and oxygenation 96% on 2 liters. GENERAL: The patient is lying flat on his back. He is alert and oriented x 0. He does not appear to be in acute distress. HEAD. EYES, EARS, NOSE AND THROAT: Normocephalic and atraumatic appearing head. Pupils are equal and reactive to light. Extraocular muscles appear to be intact. The patient does not have teeth. NECK: Supple. There is no obvious JVD or thyromegaly. CHEST: There are some crackles at bases. CARDIOVASCULAR: S1, S2 are present, regular rate and rhythm. ABDOMEN: Soft and nontender to palpation. No guarding and no rebound. No fluid distention. EXTREMITIES: 1+ pitting edema bilaterally. Pulses are not present. SKIN: There is no jaundice. LABORATORY DATA: White blood cell count 9.1, hemoglobin is 11.6 and the platelet count 242. Sodium 140, BUN 20, creatinine 1.0, AST 20, ALT 12, total bilirubin 0.3 and lipase 34. IMAGING: An abdominal CT scan was performed in the ER, which showed fecal impaction as well as dilated loops of bowel and stomach. IMPRESSION: This is a 68-year-old male with history of vascular dementia and TIA who is nonverbal, admitted to the hospital with failure to thrive type symptoms and found to have fecal impaction. 1. Failure to thrive and anorexia. 2. Distal fecal impaction. 3. Vascular dementia. 4. Previous transient ischemic attack. 5. Hypertension and hyperlipidemia. DISCUSSION: This patient's symptoms of anorexia and failure to thrive may be due to the fecal impaction causing a pseudo bowel obstruction type physiology. Thus we should try to clear the impaction using GoLYTELY and enemas to determine if the patient will have better ability to take in nutrition. If ultimately he still is not taking in adequate nutrition by mouth even after the impaction is cleared, we can consider G-tube placement if the patient and his healthcare proxy would consent for the procedure. RECOMMENDATIONS: 1. We will give a slow 4 liter GoLYTELY prep to help clear any impaction. This can be done over a 24-hour period. 2. 500 mL tap water enema every 12 hours. 3. Manual disimpaction has been ordered. 4. Clear liquids are okay for today. 5. We will track the patient's prognosis. If ultimately he does not take adequate nutrition by mouth, we can consider G-tube placement in the future. Thank you for allowing me to participate in his care. Please call with any further questions. JOB# [id number]
[2018-12-13 06:44] LABS: % BASOPHILS 0.8 % (0.0-2.0); % EOSINOPHILS 2.6 % (0.0-5.0); % LYMPHOCYTES 31.6 % (20.0-50.0); % MONOCYTES 5.2 % (2.0-10.0); % NEUTROPHILS 59.8 % (40.0-80.0); BASOPHILE ABSOLUTE 0.1 Th/cumm (0-0.2); EOSINOPHILE ABSOLUTE 0.4 Th/cmm (0.1-0.4); HEMATOCRIT 35.1 % (41.0-60); HEMOGLOBIN 11.6 gm/dL (12-16); LYMPHOCYTE ABSOLUTE 4.6 Th/cmm (1.5-3.0); MEAN CELL VOLUME 96.4 fl (80-99); MEAN CORPUSCULAR HEMOGLOBIN 31.7 pg (27.0-31.0); MEAN CORPUSCULAR HGB CONC 32.9 pg (28.0-36.0); MEAN PLATELET VOLUME 9.6 fl; MONOCYTE ABSOLUTE 0.8 Th/cmm (0.3-1.0); NEUTROPHILE ABSOLUTE 8.7 Th/cmm (1.8-8.0); PLATELET COUNT 264 Th/cmm (150-400); RED BLOOD COUNT 3.65 Mil/cmm (3.80-5.80); RED CELL DISTRIBUTION WIDTH 12.3 % (11.5-20.0); WHITE BLOOD COUNT 14.6 Th/cmm (4.8-10.8)
[2018-12-13 07:03] LABS: ALB/GLOB RATIO 1.1 (1.0-1.8); ALBUMIN 3.2 gm/dL (4.2-5.5); ALKALINE PHOSPHATASE 42 U/L (34-104); ANION GAP 10.7 (7.0-16.0); BILIRUBIN,TOTAL 0.5 mg/dL (0.3-1.0); BUN - UREA NITROGEN 12 mg/dL (7-25); CALCIUM SERUM 8.4 mg/dL (8.6-10.3); CARBON DIOXIDE 24.1 mEq/L (21.0-31.0); CHLORIDE 108 mEq/L (98-107); CREATININE - SERUM 0.8 mg/dL (0.7-1.3); GFR AFRICAN-AMERICAN > 60.0 ml/min (>90); GFR NON AFRICAN-AMERICAN > 60.0 ml/min; GLUCOSE 114 mg/dL (70-105); POTASSIUM SERUM 3.8 mEq/L (3.5-5.1); SGOT 15 U/L (13-39); SGPT/ALT 10 U/L (7-52); SODIUM SERUM 139 mEq/L (136-145)
[2018-12-13] MEDS ORDERED: cloNIDine 0.1 mg/24 hr Tdm TD SCH ×2 (07:57→12:00)
--- NOTE | 2018-12-13 07:58 | General Progress Note ---
Subjective - Review of Systems Service Date: 12/13/18 Subjective: Patient is awake, alert, afebrile. BM yesterday and today. Abdomen less distended Objective - Results Result Diagrams: 12/13/18 05:40 12/13/18 05:40 Recent Labs: Laboratory Last Values WBC 14.6 Th/cmm (4.8-10.8) H 12/13/18 05:40 RBC 3.65 Mil/cmm (3.80-5.80) L 12/13/18 05:40 Hgb 11.6 gm/dL (12-16) L 12/13/18 05:40 Hct 35.1 % (41.0-60) L 12/13/18 05:40 MCV 96.4 fl (80-99) 12/13/18 05:40 MCH 31.7 pg (27.0-31.0) H 12/13/18 05:40 MCHC Differential 32.9 pg (28.0-36.0) 12/13/18 05:40 RDW 12.3 % (11.5-20.0) 12/13/18 05:40 Plt Count 264 Th/cmm (150-400) 12/13/18 05:40 MPV 9.6 fl 12/13/18 05:40 Neutrophils % 59.8 % (40.0-80.0) 12/13/18 05:40 Lymphocytes % 31.6 % (20.0-50.0) 12/13/18 05:40 Monocytes % 5.2 % (2.0-10.0) 12/13/18 05:40 Eosinophils % 2.6 % (0.0-5.0) 12/13/18 05:40 Basophils % 0.8 % (0.0-2.0) 12/13/18 05:40 Sodium 139 mEq/L (136-145) 12/13/18 05:40 Potassium 3.8 mEq/L (3.5-5.1) 12/13/18 05:40 Chloride 108 mEq/L (98-107) H 12/13/18 05:40 Carbon Dioxide 24.1 mEq/L (21.0-31.0) 12/13/18 05:40 Anion Gap 10.7 (7.0-16.0) 12/13/18 05:40 BUN 12 mg/dL (7-25) 12/13/18 05:40 Creatinine 0.8 mg/dL (0.7-1.3) 12/13/18 05:40 Est GFR ( Amer) > 60.0 ml/min (>90) 12/13/18 05:40 Est GFR (Non-Af Amer) > 60.0 ml/min 12/13/18 05:40 BUN/Creatinine Ratio 15.0 12/13/18 05:40 Glucose 114 mg/dL (70-105) H 12/13/18 05:40 Whole Bld Lactic Acid 1.99 mmol/L (0.60-1.99) 12/11/18 20:30 Calcium 8.4 mg/dL (8.6-10.3) L 12/13/18 05:40 Total Bilirubin 0.5 mg/dL (0.3-1.0) 12/13/18 05:40 AST 15 U/L (13-39) 12/13/18 05:40 ALT 10 U/L (7-52) 12/13/18 05:40 Alkaline Phosphatase 42 U/L (34-104) 12/13/18 05:40 Troponin I < 0.01 ng/mL (0.01-0.05) L 12/11/18 20:30 B-Natriuretic Peptide 16.3 pg/mL (5.0-100.0) 12/11/18 20:30 Total Protein 6.0 gm/dL (6.0-8.3) 12/13/18 05:40 Albumin 3.2 gm/dL (4.2-5.5) L 12/13/18 05:40 Globulin 2.8 gm/dL 12/13/18 05:40 Albumin/Globulin Ratio 1.1 (1.0-1.8) 12/13/18 05:40 Lipase 34 U/L (11-82) 12/11/18 20:30 TSH 3.47 uIU/ml (0.34-5.60) 12/12/18 05:35 Influenza A (Rapid) NEG FOR INF A 12/11/18 20:24 Influenza B (Rapid) NEG FOR INF B 12/11/18 20:24 - Physical Exam Vitals and I&O: Vital Signs Temp 98.2 F 12/13/18 04:00 Pulse 73 12/13/18 04:00 Resp 17 12/13/18 04:00 BP 144/83 12/13/18 04:00 Pulse Ox 96 12/13/18 00:00 Intake & Output 12/12/18 12/13/18 12/13/18 18:59 06:59 18:59 Intake Total 1500 Balance 1500 Weight (lbs) 65.317 kg Intake: Intake, IV Amount 1000 D5-0.45NS 1,000 ml @ 50 1000 mls/hr IV .Q20H BRE Rx#: [id number] Oral 500 Other: # Voids 2 # Bowel Movements 0 Weight Source Bedscale Active Medications: Current Medications Acetaminophen (Tylenol) 650 mg PO Q4HR PRN PRN Reason: Mild Pain / Temp above 100 Stop: 02/10/19 08:13 Al Hydrox/Mg Hydrox/Simethicone (Maalox) 30 ml PO Q4HR PRN PRN Reason: GI DISTRESS Stop: 02/10/19 08:13 Amlodipine Besylate (Norvasc) 5 mg PO DAILY [facility] Stop: 02/10/19 08:59 Last Admin: 12/12/18 09:16 Dose: 5 mg Aripiprazole (Abilify) 10 mg PO DAILY [facility]; Protocol Stop: 02/10/19 08:59 Ascorbic Acid (Vitamin C) 500 mg PO DAILY [facility] Stop: 02/10/19 08:59 Last Admin: 12/12/18 09:16 Dose: 500 mg Atorvastatin Calcium (Lipitor) 10 mg PO HS [facility]; Protocol Stop: 02/10/19 20:59 Last Admin: 12/12/18 22:02 Dose: 10 mg Bisacodyl (Dulcolax 10 Mg Supp) 10 mg RC DAILY PRN PRN Reason: Constipation Stop: 02/10/19 08:13 Calcium/Vitamin D (Oscal W/Vitamin D) 1 tab PO BID [facility] Stop: 02/10/19 08:59 Last Admin: 12/12/18 16:16 Dose: 1 tab Clonidine HCl (Fonanzth-Rwr-9) 1 patch TD Q4HR PRN PRN Reason: sbp>160 Stop: 02/10/19 08:13 Divalproex Sodium (Depakote Sprinkle) 250 mg PO BID [facility] Stop: 02/10/19 09:59 Last Admin: 12/12/18 16:15 Dose: 250 mg Docusate Sodium (Colace) 100 mg PO DAILY [facility] Stop: 02/10/19 08:59 Last Admin: 12/12/18 09:15 Dose: 100 mg Donepezil HCl (Aricept) 5 mg PO HS [facility] Stop: 02/10/19 20:59 Last Admin: 12/12/18 22:02 Dose: 5 mg Glipizide (Glucotrol) 5 mg PO BID [facility] Stop: 02/10/19 08:59 Last Admin: 12/12/18 16:16 Dose: 5 mg Dextrose/Sodium Chloride (D5-0.45ns) 1,000 mls @ 50 mls/hr IV .Q20H [facility] Stop: 02/10/19 01:02 Last Admin: 12/12/18 22:04 Dose: 50 mls/hr Lorazepam (Ativan) 1 mg PO Q6HR PRN; Protocol PRN Reason: Anxiety/agitation Stop: 02/10/19 08:13 Lorazepam (Ativan) 1 mg IM Q6HR PRN; Protocol PRN Reason: Anxiety Stop: 02/10/19 08:13 Magnesium Hydroxide (Milk Of Magnesia) 30 ml PO DAILY PRN PRN Reason: Constipation Stop: 02/10/19 08:13 Megestrol Acetate (Megace) 400 mg PO QDAC [facility]; Protocol Stop: 02/11/19 07:29 Pantoprazole Sodium (Protonix) 40 mg PO DAILY [facility] Stop: 02/10/19 08:59 Last Admin: 12/12/18 09:15 Dose: 40 mg Quetiapine Fumarate (Seroquel) 25 mg PO DAILY [facility]; Protocol Stop: 02/10/19 08:59 Valsartan (Diovan) 80 mg PO BID [facility] Stop: 02/10/19 08:59 Last Admin: 12/12/18 16:25 Dose: 80 mg Zolpidem Tartrate (Ambien) 5 mg PO HS PRN PRN Reason: Insomnia Stop: 02/10/19 08:13 General: Alert, No acute distress HEENT: Atraumatic, PERRLA, EOMI Neck: Supple Cardiovascular: Regular rate, Normal S1, Normal S2 Lungs: Clear to auscultation Abdomen: Bowel sounds, Soft Extremities: no Clubbing, no Cyanosis, no Edema - Procedures Procedures: Procedures Procedure Code Date DRAINAGE OF L PLEURAL CAV WITH DRAIN DEV, PERC APPROACH [id number] 08/06/15 INSERTION OF CHEST TUBE [id number] 08/06/15 Assessment/Plan - Assessment Assessment: Severely distended stomach secondary to possible bowel obstruction due to fecal impaction in the rectum. Mild leukocytosis 14K Dehydration TIA HTN, DM type 2, Hyperlipidemia, generalized weakness, Seizure disorder, Alzheimer's dementia, osteoporosis, psychosis, depression, anxiety disorder, GERD - Plan Plan: admit to med/surg GI consult clear liquid diet IV fluids CBC,CMP tomorrow Nutritional Asmnt/Malnutr-PDOC - Dietary Evaluation Malnutrition Findings (Please click <Entered> for more info): Nutritional Asmnt/Malnutrition Start: 12/12/18 16: 34 Text: Status: Complete Freq: Protocol: Document 12/12/18 16:35 LCHENG (Rec: 12/12/18 16:50 LCHENG [email or web address]) Nutritional Asmnt/Malnutrition Patient General Information Nutritional Screening High Risk Consult Diagnosis possible bowel obstruction Pertinent Medical Hx/Surgical Hx CVA/TIA, dyslipidemia, dementia, depression, axiety Subjective Information Consult received for gualberto score 7. Pt seen lying in bed, awake, non-verbal. Per nurse note, pt refused morning medication, and refused meal per EMR. Current Diet Order/ Nutrition Support clear liquid Pertinent Medications vit C, lipitor, oscal w/vit D, D5-0.45ns, colace, megace, protonix Pertinent Labs 12/12 Cl 109, Ca 8.3 Nutritional Hx/Data Height 1.7 m Height (Calculated Centimeters) 170.2 Current Weight (lbs) 65.317 kg Weight (Calculated Kilograms) 65.3 Weight (Calculated Grams) 14787.3 [place] Body Weight 148 Body Mass Index (BMI) 22.5 Weight Status Approriate GI Symptoms GI Symptoms None Last BM not indicated Difficult in: None Skin Integrity/Comment: intact. gualberto 7 Current %PO Good (75-100%) Estimated Nutritional Goals BEE in Kcals: Using Current wt Calories/Kcals/Kg 25-30 Kcals Calculated [id number] Protein: Using Current wt Protein g/k.8-1 Protein Calculated 52-65 Fluid: ml 1625-1950ml (1mll/kcal) Nutritional Problem 1. Problem Problem altered GI function Etiology possible bowel obstruction Signs/Symptoms: pt on clear liquid diet Malnutrition Alert Is there a minimum of two criteria No selected? Query Text:Check all the applicable criteria. A minimum of two criteria are recommended for diagnosis of either severe or non-severe malnutrition. Malnutrition Related to Morbid Obesity Malnutrition related to morbid obesity No Intervention/Recommendation Comments 1. Continue with clear liquid diet as ordered. Add Ensure clear TID with meals for extra kcal and protein per hospital protocol. 2. Monitor PO intake and tolerance, GI symptoms, wt, labs and skin integrity 3. F/U as high risk in 2-3 days Expected Outcomes/Goals Expected Outcomes/Goals 1. PO intake to meet at least 75% of nutritional needs. 2. Wt stability, skin to remain intact, labs to approach WNL.
--- NOTE | 2018-12-13 08:22 | GI Progress Note ---
Subjective - Review of Systems Service Date: 12/13/18 Subjective: Had small BM with enemas, but did not drink the golytely Objective - Results Result Diagrams: 12/13/18 05:40 12/13/18 05:40 Recent Labs: Laboratory Last Values WBC 14.6 Th/cmm (4.8-10.8) H 12/13/18 05:40 RBC 3.65 Mil/cmm (3.80-5.80) L 12/13/18 05:40 Hgb 11.6 gm/dL (12-16) L 12/13/18 05:40 Hct 35.1 % (41.0-60) L 12/13/18 05:40 MCV 96.4 fl (80-99) 12/13/18 05:40 MCH 31.7 pg (27.0-31.0) H 12/13/18 05:40 MCHC Differential 32.9 pg (28.0-36.0) 12/13/18 05:40 RDW 12.3 % (11.5-20.0) 12/13/18 05:40 Plt Count 264 Th/cmm (150-400) 12/13/18 05:40 MPV 9.6 fl 12/13/18 05:40 Neutrophils % 59.8 % (40.0-80.0) 12/13/18 05:40 Lymphocytes % 31.6 % (20.0-50.0) 12/13/18 05:40 Monocytes % 5.2 % (2.0-10.0) 12/13/18 05:40 Eosinophils % 2.6 % (0.0-5.0) 12/13/18 05:40 Basophils % 0.8 % (0.0-2.0) 12/13/18 05:40 Sodium 139 mEq/L (136-145) 12/13/18 05:40 Potassium 3.8 mEq/L (3.5-5.1) 12/13/18 05:40 Chloride 108 mEq/L (98-107) H 12/13/18 05:40 Carbon Dioxide 24.1 mEq/L (21.0-31.0) 12/13/18 05:40 Anion Gap 10.7 (7.0-16.0) 12/13/18 05:40 BUN 12 mg/dL (7-25) 12/13/18 05:40 Creatinine 0.8 mg/dL (0.7-1.3) 12/13/18 05:40 Est GFR ( Amer) > 60.0 ml/min (>90) 12/13/18 05:40 Est GFR (Non-Af Amer) > 60.0 ml/min 12/13/18 05:40 BUN/Creatinine Ratio 15.0 12/13/18 05:40 Glucose 114 mg/dL (70-105) H 12/13/18 05:40 Whole Bld Lactic Acid 1.99 mmol/L (0.60-1.99) 12/11/18 20:30 Calcium 8.4 mg/dL (8.6-10.3) L 12/13/18 05:40 Total Bilirubin 0.5 mg/dL (0.3-1.0) 12/13/18 05:40 AST 15 U/L (13-39) 12/13/18 05:40 ALT 10 U/L (7-52) 12/13/18 05:40 Alkaline Phosphatase 42 U/L (34-104) 12/13/18 05:40 Troponin I < 0.01 ng/mL (0.01-0.05) L 12/11/18 20:30 B-Natriuretic Peptide 16.3 pg/mL (5.0-100.0) 12/11/18 20:30 Total Protein 6.0 gm/dL (6.0-8.3) 12/13/18 05:40 Albumin 3.2 gm/dL (4.2-5.5) L 12/13/18 05:40 Globulin 2.8 gm/dL 12/13/18 05:40 Albumin/Globulin Ratio 1.1 (1.0-1.8) 12/13/18 05:40 Lipase 34 U/L (11-82) 12/11/18 20:30 TSH 3.47 uIU/ml (0.34-5.60) 12/12/18 05:35 Influenza A (Rapid) NEG FOR INF A 12/11/18 20:24 Influenza B (Rapid) NEG FOR INF B 12/11/18 20:24 - Physical Exam Vitals and I&O: Vital Signs Temp 97 F 12/13/18 08:00 Pulse 71 12/13/18 08:00 Resp 17 12/13/18 08:00 BP 127/85 12/13/18 08:00 Pulse Ox 99 12/13/18 08:00 Intake & Output 12/12/18 12/13/18 12/13/18 18:59 06:59 18:59 Intake Total 1500 Balance 1500 Weight (lbs) 65.317 kg Intake: Intake, IV Amount 1000 D5-0.45NS 1,000 ml @ 50 1000 mls/hr IV .Q20H [facility] Rx#: [id number] Oral 500 Other: # Voids 2 # Bowel Movements 0 Weight Source Bedscale Active Medications: Current Medications Acetaminophen (Tylenol) 650 mg PO Q4HR PRN PRN Reason: Mild Pain / Temp above 100 Stop: 02/10/19 08:13 Al Hydrox/Mg Hydrox/Simethicone (Maalox) 30 ml PO Q4HR PRN PRN Reason: GI DISTRESS Stop: 02/10/19 08:13 Amlodipine Besylate (Norvasc) 5 mg PO DAILY [facility] Stop: 02/10/19 08:59 Last Admin: 12/12/18 09:16 Dose: 5 mg Aripiprazole (Abilify) 10 mg PO DAILY [facility]; Protocol Stop: 02/10/19 08:59 Ascorbic Acid (Vitamin C) 500 mg PO DAILY [facility] Stop: 02/10/19 08:59 Last Admin: 12/12/18 09:16 Dose: 500 mg Atorvastatin Calcium (Lipitor) 10 mg PO HS [facility]; Protocol Stop: 02/10/19 20:59 Last Admin: 12/12/18 22:02 Dose: 10 mg Bisacodyl (Dulcolax 10 Mg Supp) 10 mg RC DAILY PRN PRN Reason: Constipation Stop: 02/10/19 08:13 Calcium/Vitamin D (Oscal W/Vitamin D) 1 tab PO BID [facility] Stop: 02/10/19 08:59 Last Admin: 12/12/18 16:16 Dose: 1 tab Clonidine HCl (Zqwnnorq-Lce-5) 1 patch TD TH PRN PRN Reason: [id number] Stop: 02/10/19 08:13 Divalproex Sodium (Depakote Sprinkle) 250 mg PO BID [facility] Stop: 02/10/19 09:59 Last Admin: 12/12/18 16:15 Dose: 250 mg Docusate Sodium (Colace) 100 mg PO DAILY [facility] Stop: 02/10/19 08:59 Last Admin: 12/12/18 09:15 Dose: 100 mg Donepezil HCl (Aricept) 5 mg PO HS [facility] Stop: 02/10/19 20:59 Last Admin: 12/12/18 22:02 Dose: 5 mg Glipizide (Glucotrol) 5 mg PO BID [facility] Stop: 02/10/19 08:59 Last Admin: 12/12/18 16:16 Dose: 5 mg Dextrose/Sodium Chloride (D5-0.45ns) 1,000 mls @ 50 mls/hr IV .Q20H [facility] Stop: 02/10/19 01:02 Last Admin: 12/12/18 22:04 Dose: 50 mls/hr Lorazepam (Ativan) 1 mg PO Q6HR PRN; Protocol PRN Reason: Anxiety/agitation Stop: 02/10/19 08:13 Lorazepam (Ativan) 1 mg IM Q6HR PRN; Protocol PRN Reason: Anxiety Stop: 02/10/19 08:13 Magnesium Hydroxide (Milk Of Magnesia) 30 ml PO DAILY PRN PRN Reason: Constipation Stop: 02/10/19 08:13 Megestrol Acetate (Megace) 400 mg PO QDAC [facility]; Protocol Stop: 02/11/19 07:29 Pantoprazole Sodium (Protonix) 40 mg PO DAILY [facility] Stop: 02/10/19 08:59 Last Admin: 12/12/18 09:15 Dose: 40 mg Quetiapine Fumarate (Seroquel) 25 mg PO DAILY [facility]; Protocol Stop: 02/10/19 08:59 Valsartan (Diovan) 80 mg PO BID [facility] Stop: 02/10/19 08:59 Last Admin: 12/12/18 16:25 Dose: 80 mg Zolpidem Tartrate (Ambien) 5 mg PO HS PRN PRN Reason: Insomnia Stop: 02/10/19 08:13 General: Alert, No acute distress HEENT: Atraumatic, PERRLA, EOMI Neck: Supple Cardiovascular: Regular rate Abdomen: Bowel sounds, Soft, no Tender, no Hepatomegaly, no Distended, no Rebound, no Mass, no Guarding Extremities: no Clubbing, no Cyanosis, no Edema - Procedures Procedures: Procedures Procedure Code Date DRAINAGE OF L PLEURAL CAV WITH DRAIN DEV, PERC APPROACH [id number] 08/06/15 INSERTION OF CHEST TUBE 54020 08/06/15 Assessment/Plan - Assessment Assessment: # Fecal impaction # Dementia # Anorexia Likely still significant stool burden. Will insert NG tube for better golytely administration Plan: - NG tube for golytely - cont tap water enemas every 12 hrs - clears until further disempacted, then advance diet - will need strong bowel regimen going forward
[2018-12-13] MEDS: Calcium Carb/Vit D 500 mg/200 U Tab PO SCH ×2 (08:35→17:27)
[2018-12-13] MEDS: Pantoprazole 40 mg EC Tab PO SCH (08:35)
[2018-12-13 11:07] LABS: URINE SOURCE MIDSTREAM
[2018-12-13 11:13] LABS: URINE BILIRUBIN NEGATIVE (NEGATIVE); URINE BLOOD NEGATIVE (NEGATIVE); URINE GLUCOSE (UA) NEGATIVE (NEGATIVE); URINE KETONE NEGATIVE (NEGATIVE); URINE LEUKOCYTE ESTERASE NEGATIVE (NEGATIVE); URINE NITRATE NEGATIVE (NEGATIVE); URINE PROTEIN NEGATIVE (NEGATIVE); URINE UROBILINOGEN 0.2 E.U./dL (0.2 - 1.0)
[2018-12-13 11:15] LABS: URINE CLARITY CLEAR (CLEAR); URINE COLOR YELLOW
[2018-12-13 11:16] LABS: URINE MICROSCOPIC INDICATED? YES
[2018-12-13 11:22] LABS: URINE RBC NONE SEEN /hpf (0-5); URINE WBC 0-2 /hpf (0-5)
[2018-12-13 11:23] LABS: URINE EPITHELIAL CELLS NONE SEEN /lpf (FEW)
[2018-12-13 11:24] LABS: URINE BACTERIA NONE SEEN /hpf (NONE SEEN)
--- NOTE | 2018-12-13 12:16 | Diagnostic Imaging Report ---
Exam: Chest x-ray portable HISTORY: NG tube placement Portable examination of the chest at the is 1210 reviewed, demonstrates NG tube in the stomach. IMPRESSION: NG tube in stomach.
[2018-12-13] MEDS: D5-0.45NS 1,000 ML IV SCH (17:40)
[2018-12-13] MEDS: Atorvastatin Calcium 10 MG TAB PO SCH (21:05)
--- NOTE | 2018-12-14 06:40 | General Progress Note ---
Subjective - Review of Systems Service Date: 12/14/18 Subjective: Patient is awake, alert, afebrile. BM yesterday. Abdomen improved. Patient to have a KUB today. Objective - Results Result Diagrams: 12/13/18 05:40 12/13/18 05:40 Recent Labs: Laboratory Last Values WBC 14.6 Th/cmm (4.8-10.8) H 12/13/18 05:40 RBC 3.65 Mil/cmm (3.80-5.80) L 12/13/18 05:40 Hgb 11.6 gm/dL (12-16) L 12/13/18 05:40 Hct 35.1 % (41.0-60) L 12/13/18 05:40 MCV 96.4 fl (80-99) 12/13/18 05:40 MCH 31.7 pg (27.0-31.0) H 12/13/18 05:40 MCHC Differential 32.9 pg (28.0-36.0) 12/13/18 05:40 RDW 12.3 % (11.5-20.0) 12/13/18 05:40 Plt Count 264 Th/cmm (150-400) 12/13/18 05:40 MPV 9.6 fl 12/13/18 05:40 Neutrophils % 59.8 % (40.0-80.0) 12/13/18 05:40 Lymphocytes % 31.6 % (20.0-50.0) 12/13/18 05:40 Monocytes % 5.2 % (2.0-10.0) 12/13/18 05:40 Eosinophils % 2.6 % (0.0-5.0) 12/13/18 05:40 Basophils % 0.8 % (0.0-2.0) 12/13/18 05:40 Sodium 139 mEq/L (136-145) 12/13/18 05:40 Potassium 3.8 mEq/L (3.5-5.1) 12/13/18 05:40 Chloride 108 mEq/L (98-107) H 12/13/18 05:40 Carbon Dioxide 24.1 mEq/L (21.0-31.0) 12/13/18 05:40 Anion Gap 10.7 (7.0-16.0) 12/13/18 05:40 BUN 12 mg/dL (7-25) 12/13/18 05:40 Creatinine 0.8 mg/dL (0.7-1.3) 12/13/18 05:40 Est GFR ( Amer) > 60.0 ml/min (>90) 12/13/18 05:40 Est GFR (Non-Af Amer) > 60.0 ml/min 12/13/18 05:40 BUN/Creatinine Ratio 15.0 12/13/18 05:40 Glucose 114 mg/dL (70-105) H 12/13/18 05:40 Whole Bld Lactic Acid 1.99 mmol/L (0.60-1.99) 12/11/18 20:30 Calcium 8.4 mg/dL (8.6-10.3) L 12/13/18 05:40 Total Bilirubin 0.5 mg/dL (0.3-1.0) 12/13/18 05:40 AST 15 U/L (13-39) 12/13/18 05:40 ALT 10 U/L (7-52) 12/13/18 05:40 Alkaline Phosphatase 42 U/L (34-104) 12/13/18 05:40 Troponin I < 0.01 ng/mL (0.01-0.05) L 12/11/18 20:30 B-Natriuretic Peptide 16.3 pg/mL (5.0-100.0) 12/11/18 20:30 Total Protein 6.0 gm/dL (6.0-8.3) 12/13/18 05:40 Albumin 3.2 gm/dL (4.2-5.5) L 12/13/18 05:40 Globulin 2.8 gm/dL 12/13/18 05:40 Albumin/Globulin Ratio 1.1 (1.0-1.8) 12/13/18 05:40 Lipase 34 U/L (11-82) 12/11/18 20:30 TSH 3.47 uIU/ml (0.34-5.60) 12/12/18 05:35 Urine Source MIDSTREAM 12/13/18 11:00 Urine Color YELLOW 12/13/18 11:00 Urine Clarity CLEAR (CLEAR) 12/13/18 11:00 Urine pH 6.0 (4.6 - 8.0) 12/13/18 11:00 Ur Specific [place] <= 1.005 (1.005-1.030) 12/13/18 11:00 Urine Protein NEGATIVE mg/dL (NEGATIVE) 12/13/18 11:00 Urine Glucose (UA) NEGATIVE mg/dL (NEGATIVE) 12/13/18 11:00 Urine Ketones NEGATIVE mg/dL (NEGATIVE) 12/13/18 11:00 Urine Blood NEGATIVE (NEGATIVE) 12/13/18 11:00 Urine Nitrate NEGATIVE (NEGATIVE) 12/13/18 11:00 Urine Bilirubin NEGATIVE (NEGATIVE) 12/13/18 11:00 Urine Urobilinogen 0.2 E.U./dL (0.2 - 1.0) 12/13/18 11:00 Ur Leukocyte Esterase NEGATIVE (NEGATIVE) 12/13/18 11:00 Urine RBC NONE SEEN /hpf (0-5) 12/13/18 11:00 Urine WBC 0-2 /hpf (0-5) 12/13/18 11:00 Ur Epithelial Cells NONE SEEN /lpf (FEW) 12/13/18 11:00 Urine Bacteria NONE SEEN /hpf (NONE SEEN) 12/13/18 11:00 Influenza A (Rapid) NEG FOR INF A 12/11/18 20:24 Influenza B (Rapid) NEG FOR INF B 12/11/18 20:24 - Physical Exam Vitals and I&O: Vital Signs Temp 97 F 12/14/18 04:00 Pulse 75 12/14/18 04:00 Resp 18 12/14/18 04:00 BP 157/86 12/14/18 04:00 Pulse Ox 98 12/14/18 04:00 Intake & Output 12/13/18 12/13/18 12/14/18 06:59 18:59 06:59 Intake Total 1500 980 Balance 1500 980 Weight (lbs) 65.317 kg 65.317 kg Intake: Intake, IV Amount 1000 980 D5-0.45NS 1,000 ml @ 50 1000 980 mls/hr IV .Q20H [facility] Rx#: [id number] Oral 500 Other: # Voids 2 3 # Bowel Movements 0 2 Stool Characteristics Soft Soft Brown Brown Weight Source Bedscale Bedscale Active Medications: Current Medications Acetaminophen (Tylenol) 650 mg PO Q4HR PRN PRN Reason: Mild Pain / Temp above 100 Stop: 02/10/19 08:13 Al Hydrox/Mg Hydrox/Simethicone (Maalox) 30 ml PO Q4HR PRN PRN Reason: GI DISTRESS Stop: 02/10/19 08:13 Amlodipine Besylate (Norvasc) 5 mg PO DAILY [facility] Stop: 02/10/19 08:59 Last Admin: 12/13/18 08:35 Dose: 5 mg Aripiprazole (Abilify) 10 mg PO DAILY [facility]; Protocol Stop: 02/10/19 08:59 Last Admin: 12/13/18 08:34 Dose: 10 mg Ascorbic Acid (Vitamin C) 500 mg PO DAILY [facility] Stop: 02/10/19 08:59 Last Admin: 12/13/18 08:36 Dose: 500 mg Atorvastatin Calcium (Lipitor) 10 mg PO HS [facility]; Protocol Stop: 02/10/19 20:59 Last Admin: 12/13/18 21:05 Dose: 10 mg Bisacodyl (Dulcolax 10 Mg Supp) 10 mg RC DAILY PRN PRN Reason: Constipation Stop: 02/10/19 08:13 Calcium/Vitamin D (Oscal W/Vitamin D) 1 tab PO BID [facility] Stop: 02/10/19 08:59 Last Admin: 12/13/18 17:27 Dose: 1 tab Clonidine HCl (Yzekwmie-Zvf-6) 1 patch TD Th@1200 [facility] Stop: 02/11/19 07:56 Last Admin: 12/13/18 17:19 Dose: Not Given Divalproex Sodium (Depakote Sprinkle) 250 mg PO BID [facility] Stop: 02/10/19 09:59 Last Admin: 12/13/18 17:27 Dose: 250 mg Docusate Sodium (Colace) 100 mg PO DAILY [facility] Stop: 02/10/19 08:59 Last Admin: 12/13/18 08:35 Dose: 100 mg Donepezil HCl (Aricept) 5 mg PO HS [facility] Stop: 02/10/19 20:59 Last Admin: 12/13/18 21:05 Dose: 5 mg Glipizide (Glucotrol) 5 mg PO BID [facility] Stop: 02/10/19 08:59 Last Admin: 12/13/18 17:27 Dose: 5 mg Dextrose/Sodium Chloride (D5-0.45ns) 1,000 mls @ 50 mls/hr IV .Q20H [facility] Stop: 02/10/19 01:02 Last Admin: 12/13/18 17:40 Dose: 50 mls/hr Lorazepam (Ativan) 1 mg PO Q6HR PRN; Protocol PRN Reason: Anxiety/agitation Stop: 02/10/19 08:13 Lorazepam (Ativan) 1 mg IM Q6HR PRN; Protocol PRN Reason: Anxiety Stop: 02/10/19 08:13 Magnesium Hydroxide (Milk Of Magnesia) 30 ml PO DAILY PRN PRN Reason: Constipation Stop: 02/10/19 08:13 Megestrol Acetate (Megace) 400 mg PO QDAC [facility]; Protocol Stop: 02/11/19 07:29 Last Admin: 12/13/18 08:33 Dose: 400 mg Pantoprazole Sodium (Protonix) 40 mg PO DAILY [facility] Stop: 02/10/19 08:59 Last Admin: 12/13/18 08:35 Dose: 40 mg Quetiapine Fumarate (Seroquel) 25 mg PO DAILY [facility]; Protocol Stop: 02/10/19 08:59 Last Admin: 12/13/18 08:36 Dose: 25 mg Valsartan (Diovan) 80 mg PO BID [facility] Stop: 02/10/19 08:59 Last Admin: 12/13/18 17:27 Dose: 80 mg Zolpidem Tartrate (Ambien) 5 mg PO HS PRN PRN Reason: Insomnia Stop: 02/10/19 08:13 General: Alert, No acute distress HEENT: Atraumatic, PERRLA, EOMI Neck: Supple Cardiovascular: Regular rate Lungs: Clear to auscultation Abdomen: Bowel sounds, Soft, no Tender, no Hepatomegaly, no Distended, no Rebound, no Mass, no Guarding Extremities: no Clubbing, no Cyanosis, no Edema - Procedures Procedures: Procedures Procedure Code Date DRAINAGE OF L PLEURAL CAV WITH DRAIN DEV, PERC APPROACH [id number] 08/06/15 INSERTION OF CHEST TUBE 23280 08/06/15 Assessment/Plan - Assessment Assessment: Severely distended stomach secondary to possible bowel obstruction due to fecal impaction in the rectum. Mild leukocytosis 14K Dehydration TIA HTN, DM type 2, Hyperlipidemia, generalized weakness, Seizure disorder, Alzheimer's dementia, osteoporosis, psychosis, depression, anxiety disorder, GERD - Plan Plan: admit to med/surg GI consult clear liquid diet IV fluids CBC,CMP tomorrow for KUB today Nutritional Asmnt/Malnutr-PDOC - Dietary Evaluation Malnutrition Findings (Please click <Entered> for more info): Nutritional Asmnt/Malnutrition Start: 12/12/18 16: 34 Text: Status: Complete Freq: Protocol: Document 12/12/18 16:35 LCHENG (Rec: 12/12/18 16:50 LCHENG [email or web address]) Nutritional Asmnt/Malnutrition Patient General Information Nutritional Screening High Risk Consult Diagnosis possible bowel obstruction Pertinent Medical Hx/Surgical Hx CVA/TIA, dyslipidemia, dementia, depression, axiety Subjective Information Consult received for gualberto score 7. Pt seen lying in bed, awake, non-verbal. Per nurse note, pt refused morning medication, and refused meal per EMR. Current Diet Order/ Nutrition Support clear liquid Pertinent Medications vit C, lipitor, oscal w/vit D, D5-0.45ns, colace, megace, protonix Pertinent Labs 12/12 Cl 109, Ca 8.3 Nutritional Hx/Data Height 1.7 m Height (Calculated Centimeters) 170.2 Current Weight (lbs) 65.317 kg Weight (Calculated Kilograms) 65.3 Weight (Calculated Grams) 32736.3 [place] Body Weight 148 Body Mass Index (BMI) 22.5 Weight Status Approriate GI Symptoms GI Symptoms None Last BM not indicated Difficult in: None Skin Integrity/Comment: intact. gualberto 7 Current %PO Good (75-100%) Estimated Nutritional Goals BEE in Kcals: Using Current wt Calories/Kcals/Kg 25-30 Kcals Calculated 3324-7341 Protein: Using Current wt Protein g/k.8-1 Protein Calculated 52-65 Fluid: ml 1625-1950ml (1mll/kcal) Nutritional Problem 1. Problem Problem altered GI function Etiology possible bowel obstruction Signs/Symptoms: pt on clear liquid diet Malnutrition Alert Is there a minimum of two criteria No selected? Query Text:Check all the applicable criteria. A minimum of two criteria are recommended for diagnosis of either severe or non-severe malnutrition. Malnutrition Related to Morbid Obesity Malnutrition related to morbid obesity No Intervention/Recommendation Comments 1. Continue with clear liquid diet as ordered. Add Ensure clear TID with meals for extra kcal and protein per hospital protocol. 2. Monitor PO intake and tolerance, GI symptoms, wt, labs and skin integrity 3. F/U as high risk in 2-3 days Expected Outcomes/Goals Expected Outcomes/Goals 1. PO intake to meet at least 75% of nutritional needs. 2. Wt stability, skin to remain intact, labs to approach WNL.
--- NOTE | 2018-12-14 08:04 | GI Progress Note ---
Subjective - Review of Systems Service Date: 12/14/18 Subjective: Had almost half golytely before pulling out NG tube. Had 7 BMs Objective - Results Result Diagrams: 12/13/18 05:40 12/13/18 05:40 Recent Labs: Laboratory Last Values WBC 14.6 Th/cmm (4.8-10.8) H 12/13/18 05:40 RBC 3.65 Mil/cmm (3.80-5.80) L 12/13/18 05:40 Hgb 11.6 gm/dL (12-16) L 12/13/18 05:40 Hct 35.1 % (41.0-60) L 12/13/18 05:40 MCV 96.4 fl (80-99) 12/13/18 05:40 MCH 31.7 pg (27.0-31.0) H 12/13/18 05:40 MCHC Differential 32.9 pg (28.0-36.0) 12/13/18 05:40 RDW 12.3 % (11.5-20.0) 12/13/18 05:40 Plt Count 264 Th/cmm (150-400) 12/13/18 05:40 MPV 9.6 fl 12/13/18 05:40 Neutrophils % 59.8 % (40.0-80.0) 12/13/18 05:40 Lymphocytes % 31.6 % (20.0-50.0) 12/13/18 05:40 Monocytes % 5.2 % (2.0-10.0) 12/13/18 05:40 Eosinophils % 2.6 % (0.0-5.0) 12/13/18 05:40 Basophils % 0.8 % (0.0-2.0) 12/13/18 05:40 Sodium 139 mEq/L (136-145) 12/13/18 05:40 Potassium 3.8 mEq/L (3.5-5.1) 12/13/18 05:40 Chloride 108 mEq/L (98-107) H 12/13/18 05:40 Carbon Dioxide 24.1 mEq/L (21.0-31.0) 12/13/18 05:40 Anion Gap 10.7 (7.0-16.0) 12/13/18 05:40 BUN 12 mg/dL (7-25) 12/13/18 05:40 Creatinine 0.8 mg/dL (0.7-1.3) 12/13/18 05:40 Est GFR ( Amer) > 60.0 ml/min (>90) 12/13/18 05:40 Est GFR (Non-Af Amer) > 60.0 ml/min 12/13/18 05:40 BUN/Creatinine Ratio 15.0 12/13/18 05:40 Glucose 114 mg/dL (70-105) H 12/13/18 05:40 Whole Bld Lactic Acid 1.99 mmol/L (0.60-1.99) 12/11/18 20:30 Calcium 8.4 mg/dL (8.6-10.3) L 12/13/18 05:40 Total Bilirubin 0.5 mg/dL (0.3-1.0) 12/13/18 05:40 AST 15 U/L (13-39) 12/13/18 05:40 ALT 10 U/L (7-52) 12/13/18 05:40 Alkaline Phosphatase 42 U/L (34-104) 12/13/18 05:40 Troponin I < 0.01 ng/mL (0.01-0.05) L 12/11/18 20:30 B-Natriuretic Peptide 16.3 pg/mL (5.0-100.0) 12/11/18 20:30 Total Protein 6.0 gm/dL (6.0-8.3) 12/13/18 05:40 Albumin 3.2 gm/dL (4.2-5.5) L 12/13/18 05:40 Globulin 2.8 gm/dL 12/13/18 05:40 Albumin/Globulin Ratio 1.1 (1.0-1.8) 12/13/18 05:40 Lipase 34 U/L (11-82) 12/11/18 20:30 TSH 3.47 uIU/ml (0.34-5.60) 12/12/18 05:35 Urine Source MIDSTREAM 12/13/18 11:00 Urine Color YELLOW 12/13/18 11:00 Urine Clarity CLEAR (CLEAR) 12/13/18 11:00 Urine pH 6.0 (4.6 - 8.0) 12/13/18 11:00 Ur Specific [place] <= 1.005 (1.005-1.030) 12/13/18 11:00 Urine Protein NEGATIVE mg/dL (NEGATIVE) 12/13/18 11:00 Urine Glucose (UA) NEGATIVE mg/dL (NEGATIVE) 12/13/18 11:00 Urine Ketones NEGATIVE mg/dL (NEGATIVE) 12/13/18 11:00 Urine Blood NEGATIVE (NEGATIVE) 12/13/18 11:00 Urine Nitrate NEGATIVE (NEGATIVE) 12/13/18 11:00 Urine Bilirubin NEGATIVE (NEGATIVE) 12/13/18 11:00 Urine Urobilinogen 0.2 E.U./dL (0.2 - 1.0) 12/13/18 11:00 Ur Leukocyte Esterase NEGATIVE (NEGATIVE) 12/13/18 11:00 Urine RBC NONE SEEN /hpf (0-5) 12/13/18 11:00 Urine WBC 0-2 /hpf (0-5) 12/13/18 11:00 Ur Epithelial Cells NONE SEEN /lpf (FEW) 12/13/18 11:00 Urine Bacteria NONE SEEN /hpf (NONE SEEN) 12/13/18 11:00 Influenza A (Rapid) NEG FOR INF A 12/11/18 20:24 Influenza B (Rapid) NEG FOR INF B 12/11/18 20:24 - Physical Exam Vitals and I&O: Vital Signs Temp 97 F 12/14/18 04:00 Pulse 75 12/14/18 04:00 Resp 18 12/14/18 04:00 BP 157/86 12/14/18 04:00 Pulse Ox 98 12/14/18 04:00 Intake & Output 12/13/18 12/14/18 12/14/18 18:59 06:59 18:59 Intake Total 980 60 Balance 980 60 Weight (lbs) 65.317 kg Intake: Intake, IV Amount 980 D5-0.45NS 1,000 ml @ 50 980 mls/hr IV .Q20H [facility] Rx#: [id number] Oral 60 Other: # Voids 3 # Bowel Movements 2 Stool Characteristics Soft Soft Brown Brown Weight Source Bedscale Active Medications: Current Medications Acetaminophen (Tylenol) 650 mg PO Q4HR PRN PRN Reason: Mild Pain / Temp above 100 Stop: 02/10/19 08:13 Al Hydrox/Mg Hydrox/Simethicone (Maalox) 30 ml PO Q4HR PRN PRN Reason: GI DISTRESS Stop: 02/10/19 08:13 Amlodipine Besylate (Norvasc) 5 mg PO DAILY [facility] Stop: 02/10/19 08:59 Last Admin: 12/13/18 08:35 Dose: 5 mg Aripiprazole (Abilify) 10 mg PO DAILY [facility]; Protocol Stop: 02/10/19 08:59 Last Admin: 12/13/18 08:34 Dose: 10 mg Ascorbic Acid (Vitamin C) 500 mg PO DAILY [facility] Stop: 02/10/19 08:59 Last Admin: 12/13/18 08:36 Dose: 500 mg Atorvastatin Calcium (Lipitor) 10 mg PO HS [facility]; Protocol Stop: 02/10/19 20:59 Last Admin: 12/13/18 21:05 Dose: 10 mg Bisacodyl (Dulcolax 10 Mg Supp) 10 mg RC DAILY PRN PRN Reason: Constipation Stop: 02/10/19 08:13 Calcium/Vitamin D (Oscal W/Vitamin D) 1 tab PO BID [facility] Stop: 02/10/19 08:59 Last Admin: 12/13/18 17:27 Dose: 1 tab Clonidine HCl ([id number]) 1 patch TD Th@1200 [facility] Stop: 02/11/19 07:56 Last Admin: 12/13/18 17:19 Dose: Not Given Divalproex Sodium (Depakote Sprinkle) 250 mg PO BID [facility] Stop: 02/10/19 09:59 Last Admin: 12/13/18 17:27 Dose: 250 mg Docusate Sodium (Colace) 100 mg PO DAILY [facility] Stop: 02/10/19 08:59 Last Admin: 12/13/18 08:35 Dose: 100 mg Donepezil HCl (Aricept) 5 mg PO HS [facility] Stop: 02/10/19 20:59 Last Admin: 12/13/18 21:05 Dose: 5 mg Glipizide (Glucotrol) 5 mg PO BID [facility] Stop: 02/10/19 08:59 Last Admin: 12/13/18 17:27 Dose: 5 mg Dextrose/Sodium Chloride (D5-0.45ns) 1,000 mls @ 50 mls/hr IV .Q20H [facility] Stop: 02/10/19 01:02 Last Admin: 12/13/18 17:40 Dose: 50 mls/hr Lorazepam (Ativan) 1 mg PO Q6HR PRN; Protocol PRN Reason: Anxiety/agitation Stop: 02/10/19 08:13 Lorazepam (Ativan) 1 mg IM Q6HR PRN; Protocol PRN Reason: Anxiety Stop: 02/10/19 08:13 Magnesium Hydroxide (Milk Of Magnesia) 30 ml PO DAILY PRN PRN Reason: Constipation Stop: 02/10/19 08:13 Megestrol Acetate (Megace) 400 mg PO QDAC [facility]; Protocol Stop: 02/11/19 07:29 Last Admin: 12/13/18 08:33 Dose: 400 mg Pantoprazole Sodium (Protonix) 40 mg PO DAILY [facility] Stop: 02/10/19 08:59 Last Admin: 12/13/18 08:35 Dose: 40 mg Polyethylene Glycol (Miralax) 17 gm PO BID [facility] Stop: 02/12/19 08:59 Quetiapine Fumarate (Seroquel) 25 mg PO DAILY [facility]; Protocol Stop: 02/10/19 08:59 Last Admin: 12/13/18 08:36 Dose: 25 mg Valsartan (Diovan) 80 mg PO BID [facility] Stop: 02/10/19 08:59 Last Admin: 12/13/18 17:27 Dose: 80 mg Zolpidem Tartrate (Ambien) 5 mg PO HS PRN PRN Reason: Insomnia Stop: 02/10/19 08:13 General: Alert, No acute distress HEENT: Atraumatic, PERRLA, EOMI Neck: Supple Cardiovascular: Regular rate Lungs: Clear to auscultation Abdomen: Bowel sounds, Soft, no Tender, no Hepatomegaly, no Distended, no Rebound, no Mass, no Guarding Extremities: no Clubbing, no Cyanosis, no Edema - Procedures Procedures: Procedures Procedure Code Date DRAINAGE OF L PLEURAL CAV WITH DRAIN DEV, PERC APPROACH [id number] 08/06/15 INSERTION OF CHEST TUBE [id number] 08/06/15 Assessment/Plan - Assessment Assessment: # Fecal impaction # Dementia # Anorexia Likely still significant stool burden. He has passed some stool, likely has further to go. Plan: - check KUB. Will start miralax bid and senna as a maintenance regimen. Can add dulcolax to this if needed - advance diet
[2018-12-14] MEDS ORDERED: POLYETHYLENE GLYCOL 3350 17 GM PACK PO SCH (09:00)
--- NOTE | 2018-12-14 09:16 | Diagnostic Imaging Report ---
KUB abdominal film HISTORY: Pain, constipation There is a nonspecific gas pattern of nondilated large and small bowel. No free intraperitoneal air. No significant abnormal calcifications. IMPRESSION: 1. Nonspecific gas pattern of nondilated bowel. No acute radiographic abnormalities.
[2018-12-14] MEDS: Pantoprazole 40 mg EC Tab PO SCH (10:14)
[2018-12-14] MEDS: Calcium Carb/Vit D 500 mg/200 U Tab PO SCH (10:15)
[2018-12-14] MEDS: D5-0.45NS 1,000 ML IV SCH (13:53)
--- NOTE | 2018-12-17 10:21 | Discharge Summary ---
DATE OF DISCHARGE: 12/14/2018 PRELIMINARY DIAGNOSES: 1. Severely distended abdomen secondary to possible bowel obstruction due to fecal impaction. 2. Mild leukocytosis. 3. Dehydration. 4. Transient ischemic attack. 5. Hypertension. 6. Diabetes mellitus type 2. 7. Hyperlipidemia. 8. Generalized weakness. 9. Seizure disorder. 10. Alzheimer dementia. 11. Osteoporosis. 12. Psychosis. 13. Depression. 14. Anxiety disorder. 15. Gastroesophageal reflux disease. DISCHARGE DIAGNOSES: 1. Fecal impaction, now resolved. 2. Dehydration, now resolved. 3. Leukocytosis, now improved. 4. Transient ischemic attack. 5. Hypertension. 6. Diabetes mellitus type 2. 7. Hyperlipidemia. 8. Generalized weakness. 9. Seizure disorder. 10. Alzheimer dementia. 11. Osteoporosis. 12. Psychosis. 13. Depression. 14. Anxiety disorder. 15. Gastroesophageal reflux disease. BRIEF HISTORY OF PRESENT ILLNESS: This is a 68-year-old male who presents [facility] ER from a [facility] for failure to thrive and generalized weakness. The patient has a history of TIA, hypertension, diabetes type 2, hyperlipidemia, generalized weakness, seizure disorder, Alzheimer's dementia, osteoporosis, psychosis, depression, anxiety, gastroesophageal reflux disease. While in the ER, the patient had a CT of the abdomen and pelvis, which revealed distended abdomen with fecal impaction, diverticulosis, but no diverticulitis. Initial lab work done in the ER revealed a lactic acid of 1.99. BNP of 16.3. Troponin of less than 0.01. Sodium 145, potassium 4.0, BUN 24, creatinine 1.1, glucose 96. White count was 10, hemoglobin 12.6, hematocrit 38.1, platelets 305,000. The patient was subsequently admitted to Med-Surg for further evaluation and treatment. HOSPITAL COURSE: The patient was seen and evaluated by GI, see dictated report. The patient was given bowel preps to help decrease the fecal impaction. The patient improved during his hospital stay. Repeat KUB done revealed improvement of his abdomen with no further fecal impaction. The patient was then subsequently discharged in stable condition back to the [facility] facility with same orders. [facility]# [id number]
== END 2018-12-14 15:28 | DRG 388 ==
LOC: ER 19:59 → MSI 23:08
PROVIDERS: ADMIT Family Medicine; ATTEND Family Medicine
DX: K56.41 Fecal impaction (principal); R53.2 Functional quadriplegia; E11.9 Type 2 diabetes mellitus without complications; E86.0 Dehydration; G30.9 Alzheimer's disease, unspecified; M81.0 Age-related osteoporosis without current pathological fracture; F29 Unspecified psychosis not due to a substance or known physiological condition; R62.7 Adult failure to thrive; E78.5 Hyperlipidemia, unspecified; G40.909 Epilepsy, unspecified, not intractable, without status epilepticus; F01.50 Vascular dementia, unspecified severity, without behavioral disturbance, psychotic disturbance, mood disturbance, and anxiety; Z86.73 Personal history of transient ischemic attack (TIA), and cerebral infarction without residual deficits
CPT/HCPCS: 36415-UA; 71045-TC; 74000-TC; 80048-TC; 80053-TC; 81001-TC; 83605; 83690-TC; 83880-TC; 84443-TC; 84484-TC; 85025-TC; 87804-TC; 93005; J0696; J7030; Z7610